=== PATIENT | female | born 2000 | race Caucasian/White ===

== ENCOUNTER 2024-10-16 14:05 | Outpatient (CLI) | payer MEDICAID, SELFPAY ==
[2024-10-16] VITALS (9 sets, daily range): BP systolic 111–136; BP diastolic 67–86; PULSE 93–113; RESP 20; TEMP 36.7; BMI 26.6
--- OUTSIDE RECORDS SUMMARY | 2024-10-16 14:19 | XMS RPT_ITS | CCD ---
Author Organization [facility] Care Team Providers Care Fountain Attendant Name Role Phone [employer] Unavailable Unavailable [facility] Unavailable Unavailable Matilda Voothy Primary Care Provider [phone] Unavailable Primary Care Provider Unavailabl e Unavailable Primary Care Provider Unavailabl e MATILDA VOOTHY Primary Care Unavailable WHITNEYTSYAKELIN Attending Unavailable PLOTTS, YAKELIN Referring Unavailable PLOTTS, YAKELIN Referring Unavailable HAURY, XIOMARA Attending Unavailable MADHURIVERA ORDAZ Attending Unavailable WISWELL, THANIA Attending Unavailable EID, EAN Attending Unavailable WISWELL, THANIA Referring Unavailable WISWELL, THANIA Referring Unavailable MADHURIVERA Attending Unavailable MADHURIVERA ORDAZ Referring Unavailable PLOTTS, YAKELIN Attending Unavailable EID, EAN Referring Unavailable HAURY, XIOMARA Attending Unavailable EID, EAN Referring Unavailable EID, EAN Referring Unavailable EID, EAN Referring Unavailable EID, EAN Attending Unavailable EID, EAN Referring Unavailable MADHURI, VERA Attending Unavailable Allergies Allergy Classification Reported Allergen(s) Allergy Type Date of Onset Reaction(s) Facility (20 sources) amoxicillin; Translations: [AMOXICILLIN] Drug Allergy 6 Hives, Rash, GI Upset [facility] Other [place] [facility] Medications Current Medications Medication Drug Class(es) Dates Sig (Normalized) Sig (Original) aspirin 81 mg delayed release oral tablet (17 sources) Platelet Aggregation Inhibitor, Nonsteroidal Anti-inflammatory Drug Start: 03-28-2024 End: 06-22-2024 take 1 tablet by mouth once daily aspirin, enteric coated (ECOTRIN LOW STRENGTH) 81 mg EC tablet Indications: Encounter for supervision of normal in multigravida (HCC) , with uncertain dates in first trimester (HCC) Take 1 tablet by mouth once daily. 90 tablet 3 06/22/2024 Active famotidine 40 mg oral tablet (4 sources) Histamine-2 Receptor Antagonist Start: 03-28-2024 End: 04-27-2024 take 1 tablet by mouth once daily famotidine (PEPCID) 40 mg tablet Take 1 tablet by mouth once daily. 30 tablet 3 03/28/2024 04/27/2024 Active metroNIDAZOLE 500 mg oral tablet (2 sources) Nitroimidazole Antimicrobial Start: 03-29-2024 End: 04-05-2024 take 1 tablet by mouth twice daily metroNIDAZOLE (FLAGYL) 500 mg tablet Take 1 tablet by mouth two times a day for 7 days. 14 tablet 03/29/2024 04/05/2024 Active Multiple Vitamin (multivitamin) tablet (3 sources) take 1 tablet by mouth once daily Multiple Vitamin (multivitamin) tablet Take 1 tablet by mouth daily. Active PNV no.95/ferrous fum/folic ac ( ORAL) (17 sources) take 1 tablet by mouth once daily before mealtime PNV no.95/ferrous fum/folic ac ( ORAL) Take 1 tablet by mouth once daily. W/ DHA & Folic acid Active pyridoxine hydrochloride 25 mg oral tablet (3 sources) take 1 tablet by mouth once daily pyridoxine (Vitamin B-6) 25 MG tablet Take 25 mg by mouth daily. Active Completed/Discontinued Medications Medication Drug Class(es) Dates Sig (Normalized) Sig (Original) bifidobacterium animalis [id number] unt / bifidobacterium longum [id number] unt / lactobacillus acidophilus [id number] unt oral capsule (2 sources) Start: 07-13-2018 End: 03-28-2024 take 1 capsule by mouth once daily L.acidoph-B.lactis- B.longum (FLORAJEN3) 460 mg (7.5-6- 1.5 bill. cell) cap Indications: BV (bacterial vaginosis) Take 1 capsule by mouth once daily. 30 capsule 2 07/13/2018 03/28/2024 Discontinued (Course of therapy completed) esomeprazole 20 mg delayed release oral capsule (2 sources) Proton Pump Inhibitor Start: 07-08-2018 End: 03-28-2024 take 1 capsule by mouth once daily before breakfast esomeprazole (NEXIUM) 20 mg capsule Indications: Epigastric pain , Pelvic pain in female Take 1 capsule by mouth daily before breakfast for 14 days. 14 capsule 07/08/2018 03/28/2024 Discontinued (Course of therapy completed) folic acid 1 mg oral tablet (8 sources) Start: 03-28-2024 End: 06-22-2024 take 1 tablet by mouth once daily folic acid 1 mg tablet Take 1 tablet by mouth once daily. 30 tablet 4 03/28/2024 [Ratio] 23.45 kg/m2 Yakelin Hoffman APRN.CNM Work Phone: [facility] 05-27-2024 09:25-0400 Body weight 60.78 kg Yakelin Hoffman APRN.CNM Work Phone: [facility] 05-27-2024 09:25-0400 Diastolic blood pressure 64 mm[Hg] Yakelin Hoffman DENTAL COORDINATOR.CNM Work Phone: [facility] 05-27-2024 09:25-0400 Systolic blood pressure 116 mm[Hg] Yakelin Hoffman APRN.CNM Work Phone: [facility] 04-29-2024 10:05-0500 Body mass index (BMI) [Ratio] 22.05 kg/m2 Vera Bautista MD Work Phone: [facility] 04-29-2024 10:05-0500 Body weight 57.15 kg Vera Bautista MD Work Phone: [facility] 04-29-2024 10:05-0500 Diastolic blood pressure 64 mm[Hg] Vera Bautista MD Work Phone: [facility] 04-29-2024 10:05-0500 Systolic blood pressure 130 mm[Hg] Vera Bautista MD Work Phone: [facility] 04-06-2024 14:35-0500 Body mass index (BMI) [Ratio] 21 kg/m2 Ean Eid APRN.CNM Work Phone: [facility] 04-06-2024 14:35-0500 Body weight 54.43 kg Ean Eid APRN.CNM Work Phone: [facility] 04-06-2024 14:35-0500 Diastolic blood pressure 62 mm[Hg] Ean Eid APRN.CNM Work Phone: [facility] 04-06-2024 14:35-0500 Systolic blood pressure 108 mm[Hg] Ean Eid APRN.CNM Work Phone: [facility] 03-28-2024 13:00-0500 Body height 161 cm Ean Eid APRN.CNM Work Phone: [facility] 03-28-2024 13:00-0500 Body mass index (BMI) [Ratio] 20.65 kg/m2 Ean Eid APRN.CNM Work Phone: [facility] 03-28-2024 13:00-0500 Body weight 53.52 kg Ean Eid APRN.CNM Work Phone: [facility] 03-28-2024 13:00-0500 Diastolic blood pressure 78 mm[Hg] Ean Eid APRN.CNM Work Phone: [facility] 03-28-2024 13:00-0500 Systolic blood pressure 122 mm[Hg] Ean Eid APRN.CNM Work Phone: [facility] 03-18-2024 22:51-0500 Diastolic blood pressure 56 mm[Hg] [facility] 03-18-2024 22:51-0500 Heart rate 80 /min [facility] 03-18-2024 22:51-0500 Respiratory rate 16 /min [facility] 03-18-2024 22:51-0500 SaO2% (BldA) [Mass fraction] 100 % [facility] 03-18-2024 22:51-0500 Systolic blood pressure 112 mm[Hg] [facility] 03-18-2024 20:36-0500 Body temperature 97.59 [degF] [facility] 06-03-2022 10:28-0400 Body height 162.6 cm Fatoumata Irvin DENTAL COORDINATOR - GLASS SILVERER Work Phone: [facility] 06-03-2022 10:28-0400 Body mass index (BMI) [Ratio] 21.46 kg/m2 Fatoumata Irvin DENTAL COORDINATOR - GLASS SILVERER Work Phone: [facility] [employer] 06-03-2022 10:28-0400 Body temperature 98.29 [degF] Fatoumata Irvin DENTAL COORDINATOR - GLASS SILVERER Work Phone: [employer] 06-03-2022 10:28-0400 Body weight 56.7 kg Fatoumata Irvin DENTAL COORDINATOR - GLASS SILVERER Work Phone: [employer] 06-03-2022 10:28-0400 Diastolic blood pressure 70 mm[Hg] Fatoumata Irvin DENTAL COORDINATOR - GLASS SILVERER Work Phone: [employer] 06-03-2022 10:28-0400 Heart rate 88 /min Fatoumata Irvin DENTAL COORDINATOR - GLASS SILVERER Work Phone: [employer] 06-03-2022 10:28-0400 Respiratory rate 18 /min Fatoumata Irvin DENTAL COORDINATOR - GLASS SILVERER Work Phone: [employer] 06-03-2022 10:28-0400 SaO2% (BldA) [Mass fraction] 100 % Fatoumata Irvin DENTAL COORDINATOR - GLASS SILVERER Work Phone: [employer] 06-03-2022 10:28-0400 Systolic blood pressure 133 mm[Hg] Fatoumata Irvin DENTAL COORDINATOR - GLASS SILVERER Work Phone: [employer] Encounters Encounter Date Encounter Type Care Provider Facility Start: 10-12-2024 End: 10-12-2024 ambulatory THANIA SAMANIEGO Facility:[facility] Start: 09-19-2024 End: 09-19-2024 Patient encounter procedure Thania Samaniego MD Work Phone: OB/Gynecology Comment on above: Supervision of high risk in third trimester (HCC) (Primary Dx); 33 weeks gestation of (HCC); Uterine size-date discrepancy, third trimester (HCC) Start: 09-19-2024 End: 09-19-2024 ambulatory THANIA SAMANIEGO Facility:[facility] Start: 09-06-2024 End: 09-06-2024 ambulatory Vera Bautista MD Work Phone: OB/Gynecology Comment on above: FMLA paperwork Start: 09-06-2024 End: 09-06-2024 E-mail encounter from caregiver Vera Bautista MD Work Phone: OB/Gynecology Start: 09-05-2024 End: 09-07-2024 ambulatory Vera Bautista MD Work Phone: OB/Gynecology Comment on above: Request for maternit y leave Start: 08-31-2024 End: 08-31-2024 Office outpatient visit 15 minutes Vera Bautista MD Work Phone: OB/Gynecology Comment on above: Supervision of high risk in third trimester (HCC) (Primary Dx); History of vacuum extraction assisted delivery; History of oligohydramnios; 30 weeks gestation of (HCC) Start: 08-31-2024 End: 08-31-2024 ambulatory VERA BAUTISTA Facility:[facility] Start: 08-22-2024 End: 08-22-2024 [facility] Facility:[facility] Start: 08-18-2024 End: 08-18-2024 Telephone encounter Xiomara Fisher APRN.CNP Work Phone: OB/Gynecology Comment on above: Results Start: 08-18-2024 End: 08-18-2024 Patient encounter procedure Xiomara Fisher APRN.CNP Work Phone: OB/Gynecology Comment on above: Supervision of high risk in third trimester (HCC) (Primary Dx); 28 weeks gestation of (HCC); History of vacuum extraction assisted delivery; History of oligohydramnios Start: 08-18-2024 End: 08-18-2024 [facility] Facility:[facility] Start: 07-20-2024 End: 07-20-2024 Patient encounter procedure Yakelin Hoffman APRN.CNM Work Phone: OB/Gynecology Comment on above: Screening for diabet es mellitus (Primary Dx); 24 weeks gestation of (HCC); Supervision of high risk in second trimester (HCC) Start: 07-20-2024 End: 07-20-2024 [facility] Facility:[facility] Start: 06-22-2024 End: 06-22-2024 Patient encounter procedure Xiomara Fisher APRN.CNP Work Phone: OB/Gynecology Comment on above: Supervision of high risk in second trimester (HCC) (Primary Dx); 20 weeks gestation of (HCC); History of vacuum extraction assisted delivery; Encounter for supervision of normal in multigravida (HCC); with uncertain dates in first trimester (HCC) Encounter for anatomic survey (HCC) (Primary Dx); 20 weeks gestation of (HCC) Start: 06-22-2024 End: 06-[facility] Start: 05-27-2024 End: 05-27-2024 ambulatory YAKELIN HOFFMAN Facility:[facility] Start: 05-27-2024 End: 05-27-2024 Patient encounter procedure Yakelin Hoffman DENTAL COORDINATOR.CNM Work Phone: OB/Gynecology Comment on above: Encounter for superv ision of other normal in second trimester (Primary Dx); History of vacuum extraction assisted delivery; 15 weeks gestation of ; Nausea and vomiting in ; headache in second trimester Start: 05-05-2024 End: 07-05-2024 Follow-up encounter Vera Bautista MD Work Phone: OB/Gynecology Start: 05-03-2024 End: 05-03-2024 Patient encounter procedure Whi Tech 1 Dog Pound Attendant [facility] [facility] Maternal Medicine Comment on above: Encounter for antena seferino screening for malformation using ultrasound (Primary Dx); 12 weeks gestation of Start: 05-03-2024 End: 05-03-2024 [facility] Start: 04-29-2024 End: 04-29-2024 ambulatory VERA BAUTISTA Facility:[facility] Start: 04-29-2024 End: 04-29-2024 Office outpatient visit 15 minutes Vera Bautista MD Work Phone: OB/Gynecology Comment on above: 11 weeks gestation o f (Primary Dx); Encounter for supervision of other normal in first trimester; History of vacuum extraction assisted delivery Start: 04-06-2024 End: 04-06-2024 [facility] Facility:[facility] Start: 04-06-2024 End: 04-06-2024 Patient encounter procedure Eanariel Eid APRN.CNM Work Phone: OB/Gynecology Comment on above: Supervision of other normal (Primary Dx); Bleeding in early ; 8 weeks gestation of Start: 03-30-2024 End: 04-01-2024 ambulatory Ean Eid APRN.CNM Work Phone: OB/Gynecology Comment on above: Return to work Start: 03-29-2024 End: 03-29-2024 ambulatory Ean Eid DENTAL COORDINATOR.CNM Work Phone: OB/Gynecology Comment on above: Return to work Start: 03-28-2024 End: 03-28-2024 ambulatory EAN EID Facility:[facility] Start: 03-28-2024 End: 03-28-2024 Patient encounter procedure Ean Eid APRN.CNM Work Phone: OB/Gynecology Comment on above: Encounter for superv ision of normal in multigravida (Primary Dx); with uncertain dates in first trimester; History of vacuum extraction assisted delivery; Supervision of other normal ; Nausea and vomiting in Start: 03-21-2024 End: 03-21-2024 ambulatory Kim Hylton RN [facility] Clinical Communication Start: 03-21-2024 End: 03-21-2024 [facility] Start: 03-18-2024 End: 03-18-2024 Emergency department patient visit [facility] Comment on above: Nausea and vomiting during (Primary Dx); Elevated blood pressure reading Start: 03-18-2024 End: 03-18-2024 Telephone encounter Yakelin Hoffman ELOISA.CNM Work Phone: OB/Gynecology Comment on above: Nausea Start: 06-03-2022 End: 06-03-2022 Office outpatient visit 15 minutes Fatoumata Corona NP Work Phone: [facility] Comment on above: Impacted cerumen of right ear (Primary Dx) Start: 12-21-2017 End: 12-22-2017 Emergency department patient visit [facility] Procedures Date Procedure Procedure Detail Performing Clinician Start: 06-22-2024 Us preg uterus after 1st trimest 1/ gestation Ean Eid APRN.CNM Work Phone: Start: 05-03-2024 Us preg uterus after 1st trimest 1/ gestation Eanariel Eid APRN.CNM Work Phone: Start: 03-28-2024 BACTERIAL VAGINOSIS NAAT Ean Eid APRN.CNM Work Phone: Start: 03-28-2024 Iadna trichomonas va ginalis amplified probe tech Eanariel Eid APRN.CNM Work Phone: Start: 03-28-2024 Antibody screen JERRY HOFFMAN Comment on above: Order Comment: Speci men Type: BLOOD SPECIMEN Ordering Facility: [facility] Address: [address] [place] [address] Performed By: #### T SPN #### [facility] CLIA [id number] [address] [place] [address] [place] Start: 03-28-2024 Iadna chlamydia trac homatis amplified probe tq Eanariel Eid APRN.CNM Work Phone: Start: 03-28-2024 Us uterus l imited 1/> fetuses Eanariel Eid APRN.CNM Work Phone: Start: 03-18-2024 Comprehensive metabo lic panel Amee Banks PA-C Work Phone: Plan of Treatment Date Care Activity Detail Author Start: 2073 RSV Immunization for Adults (1 - 1-dose 75+ series) RSV Immunization for Adults (1 - 1-dose 75+ series) [employer] Start: 2048 Zoster Vaccines (1 o f 2) Zoster Vaccines (1 of 2) [employer] Start: 03-28-2027 Screening for malign ant neoplasm of cervix Cervical Cancer Screening [facility] Start: 05-23-2025 DTaP/Tdap/Td Vaccine s (5 - Td or Tdap) DTaP/Tdap/Td Vaccines (5 - Td or Tdap) [facility] Start: 05-23-2025 DTaP/Tdap/Td Vaccine s (8 - Td or Tdap) DTaP/Tdap/Td Vaccines (8 - Td or Tdap) [facility] Start: 05-23-2025 Urine microalbumin profile DTaP,Tdap,Td Vaccine (8 - Td or Tdap) [facility] Start: 11-07-2024 Influenza vaccination Influenza Vacc ine (#1) [facility] Start: 10-12-2024 End: 10-12-2024 Patient encounter procedure Maternal Medicine Comment on above: Growth Growth/OB Start: 09-19-2024 End: 09-19-2025 OBSTETRIC ULTRASOUND WHI OBSTETRIC ULTRASOUND WHI Anc Imaging Routine 33 weeks gestation of ([facility]) Supervision of high risk in third trimester ([facility]) Uterine size-date discrepancy, third trimester ([facility]) Expected: 09/19/2024, Expires: 09/19/2025 [facility] Work Phone: Comment on above: Expected: 09/19/2024 , Expires: 09/19/2025 Start: 09-19-2024 End: 09-19-2024 Patient encounter procedure OB/Gynecology Comment on above: OB OB- FMLA paper work in chart prep binder Start: 08-31-2024 End: 08-31-2024 Patient encounter procedure 08/31/2024 10:40 AM EDT Routine Office Visit OB/Gynecology [address] [place] [id number] Vera Bautista MD [address] [place] [address] OB OB/Gynecology Comment on above: OB Start: 08-22-2024 End: 08-22-2024 ambulatory 08/22/2024 8:45 AM EDT Results Only Siena Winter [facility] [address] [place] [address] 3 hour GTT Sienaalicia Lynchwn [facility] Comment on above: 3 hour GTT Start: 08-20-2024 End: 11-19-2024 ANEMIA REFLEX PANEL ANEMIA REFLEX PANEL Lab Routine 24 weeks gestation of ([facility]) Supervision of high risk in second trimester ([facility]) Expected: 08/20/2024 (Approximate), Expires: 11/19/[address] [facility] Comment on above: Expected: 08/20/2024 (Approximate), Expires: 11/19/2024 Start: 08-20-2024 End: 07-20-2025 GESTATIONAL GLUCOSE SCREEN, 1-HOUR, 50 GRAM, NON-FASTING GESTATIONAL GLUCOSE SCREEN, 1-HOUR, 50 GRAM, NON-FASTING Lab Routine Screening for diabetes mellitus Expected: 08/20/2024 (Approximate), Expires: 07/20/2025 [facility] Work Phone: Comment on above: Expected: 08/20/2024 (Approximate), Expires: 07/20/2025 Start: 08-20-2024 End: 07-20-2025 SYPHILIS TREPONEMAL W/REFLEX SYPHILIS TREPONEMAL W/REFLEX Lab Routine 24 weeks gestation of ([facility]) Supervision of high risk in second trimester ([facility]) Expected: 08/20/2024 (Approximate), Expires: 07/20/[address] [facility] Comment on above: Expected: 08/20/2024 (Approximate), Expires: 07/20/2025 Start: 08-18-2024 End: 11-17-2024 GEST GLUC NEREIDA, 3-HR, 100 GM, FASTING GEST GLUC NEREIDA, 3-HR, 100 GM, FASTING Lab Routine Elevated glucose tolerance test Expected: 08/18/2024, Expires: 11/17/2024 [facility] Work Phone: Comment on above: Expected: 08/18/2024 , Expires: 11/17/2024 Start: 08-18-2024 End: 08-18-2024 Patient encounter procedure 08/18/2024 9:00 AM EDT Routine Office Visit OB/Gynecology [address] [place] [id number] Xiomara Fisher APRN.CERAMIC TILE SETTER [address] [place] [address] CASH/glucose OB/Gynecology Comment on above: CASH/glucose Start: 08-18-2024 End: 08-18-2024 ambulatory 08/18/2024 8:45 AM EDT Results Only Siena Winter [facility] [address] [place] [address] glucose Siena Lynchwn [facility] Comment on above: glucose Start: 07-20-2024 End: 07-20-2024 Patient encounter procedure 07/20/2024 9:15 AM EDT Routine Office Visit OB/Gynecology [address] [place] [address] Yakelin Hoffman APRN.CNM [address] [place] [address] OB Routine OB/Gynecology Comment on above: OB Routine Start: 06-22-2024 End: 06-22-2024 Patient encounter procedure Maternal Medicine Comment on above: ANATOMY ANATOMY/OB Start: 05-27-2024 End: 05-27-2024 Patient encounter procedure 05/27/2024 9:45 AM EDT Routine Office Visit OB/Gynecology [address] [place] [address] Yakelin Hoffman APRN.CNM [address] [place] [address] OB OB/Gynecology Comment on above: OB Start: 05-03-2024 End: 05-03-2024 Patient encounter procedure 05/03/2024 2:30 PM EST Routine Office Visit Maternal Medicine [address] [place] [address] Nuchal US Maternal Medicine Comment on above: Nuchal US Start: 04-29-2024 End: 07-29-2024 Chromosome 21 trisomy [Presence] in Blood or Tissue by Cytogenetics [facility] Work Phone: Comment on above: Expected: 04/29/2024 , Expires: 07/29/2024 Start: 04-29-2024 End: 04-29-2024 Patient encounter procedure 04/29/2024 10:00 AM EST Routine Office Visit OB/Gynecology [address] [place] [address] Vera Bautista MD [address] [place] [address] 1ST OB LMP 01/30/2024 OB/Gynecology Comment on above: 1ST OB LMP 4 Start: 03-28-2024 End: 06-27-2024 ANEMIA REFLEX PANEL [facility] Work Phone: Comment on above: Expected: 03/28/2024 , Expires: 06/27/2024 Start: 03-28-2024 End: 03-28-2025 OBSTETRIC ULTRASOUND WHI OBSTETRIC ULTRASOUND WHI Anc Imaging Routine Encounter for supervision of normal in multigravida with uncertain dates in first trimester Expected: 03/28/2024, Expires: 03/28/[address] [facility] Comment on above: Expected: 03/28/2024 , Expires: 03/28/2025 Start: 03-28-2024 End: 03-28-2024 Patient encounter procedure 03/28/2024 1:00 PM EST Initial Office Visit OB/Gynecology [address] [place] [address] Ean Eid APRN.[facility] [address] [place] [address] 1ST OB LMP 01/30/2024 OB/Gynecology Comment on above: 1ST OB LMP 4 Start: 11-08-2023 Covid-19 Vaccine ( season) Covid-19 Vaccine ( season) [facility] Start: 11-08-2023 COVID-19 Vaccine ( season) COVID-19 Vaccine ( season) [facility] Start: 11-08-2023 Influenza vaccination Influenza Vacc ine (#1) [facility] Start: 06-15-2020 COVID-19 Vaccine (3 - Booster for Moderna series) COVID-19 Vaccine (3 - Booster for Moderna series) [facility] Start: 06-02-2019 Screening for malign ant neoplasm of cervix [facility] Start: 2016 Anxiety Screening Anxiety Screening [facility] Start: 2016 Depression Screening Depression Scre ening [facility] Start: 2016 Hepatitis C screening Hepatitis C Sc reemario [facility] Start: 2013 HPV Vaccine (1 - 3-d ose series) HPV Vaccine (1 - 3-dose series) [facility] Start: 2013 HPV Vaccines (1 - 3-dose series) HPV Vaccines (1 - 3-dose series) [facility] Start: 2012 Peds To Adult Transition Annual Assessment Peds To Adult Transition Annual Assessment [facility] Start: 2010 Depression Screening Depression Scre endennise [facility] Start: 2010 Peds To Adult Transition Initial Discussion Peds To Adult Transition Initial Discussion [facility] Start: 2009 HPV Vaccines (1 - 2-dose series) HPV Vaccines (1 - 2-dose series) [facility] Start: 1998 HIV screening HIV Screening [facility] PAP TEST PAP TEST Lab Lucy thompson Encounter for supervision of normal in multigravida 03/28/2024 4:18 PM EST [facility] Immunizations Immunization Date Immunization Notes Care Provider Elyse jacobo 01-08-2024 influenza virus vacc ine, unspecified formulation Vera Bautista MD Work Phone: [facility] 12-17-2021 influenza virus vacc ine, unspecified formulation [facility] 01-10-2017 influenza, injectabl e, quadrivalent, preservative free Yakelin Hoffman DENTAL COORDINATOR.CNAnthony Work Phone: [facility] 01-10-2017 influenza virus vacc ine, unspecified formulation Yakelin Hoffman DENTAL COORDINATOR.CNM Work Phone: [facility] 05-24-2015 tetanus toxoid, redu chandan diphtheria toxoid, and acellular pertussis vaccine, adsorbed Yakelin Hoffman DENTAL COORDINATOR.CNM Work Phone: [facility] 09-29-2014 meningococcal polysaccharide (groups A, C, Y and W-135) diphtheria toxoid conjugate vaccine (MCV4P) Yakelin Hoffman DENTAL COORDINATOR.CNM Work Phone: [facility] Work Phone: 10-06-2011 hepatitis A vaccine, unspecified formulation Yakelin Plotts DENTAL COORDINATOR.CNM Work Phone: [facility] 10-06-2011 varicella virus vaccine Cour tney Plotts DENTAL COORDINATOR.CNM Work Phone: [facility] 08-09-2010 hepatitis A vaccine, unspecified formulation Yakelin Plotts DENTAL COORDINATOR.CNM Work Phone: [facility] 08-09-2010 Meningococcal, MCV4, unspecified conjugate formulation(groups A, C, Y and W-135) Yakelin Plotts DENTAL COORDINATOR.CNM Work Phone: [facility] 08-09-2010 tetanus toxoid, redu chandan diphtheria toxoid, and acellular pertussis vaccine, adsorbed Yakelin Plotts DENTAL COORDINATOR.CNM Work Phone: [facility] 02-07-2010 influenza virus vacc ine, unspecified formulation Yakelin Plotts DENTAL COORDINATOR.CNM Work Phone: [facility] 01-22-2006 influenza virus vacc ine, unspecified formulation Yakelin Plotts DENTAL COORDINATOR.CNM Work Phone: [facility] Work Phone: 01-23-2004 influenza virus vacc ine, unspecified formulation Yakelin Plotts DENTAL COORDINATOR.CNM Work Phone: [facility] 08-03-2003 diphtheria, tetanus toxoids and acellular pertussis vaccine Yakelin Plotts DENTAL COORDINATOR.CNM Work Phone: [facility] 08-03-2003 measles, mumps and rubella virus vaccine Yakelin Plotts DENTAL COORDINATOR.CNM Work Phone: [facility] 08-03-2003 poliovirus vaccine, inactivated Yakelin Plotts DENTAL COORDINATOR.CNM Work Phone: [facility] 02-10-2003 influenza virus vacc ine, unspecified formulation Yakelin Plotts DENTAL COORDINATOR.CNM Work Phone: [facility] 12-23-2002 influenza virus vacc ine, unspecified formulation Yakelin Plotts DENTAL COORDINATOR.CNM Work Phone: [facility] 09-20-1999 diphtheria, tetanus toxoids and acellular pertussis vaccine Yakelin Plotts DENTAL COORDINATOR.CNM Work Phone: [facility] 09-20-1999 haemophilus influenz ae type b vaccine, HbOC conjugate Yakelin Plotts DENTAL COORDINATOR.CNM Work Phone: [facility] 09-20-1999 measles, mumps and rubella virus vaccine Yakelin Plotts DENTAL COORDINATOR.CNM Work Phone: [facility] 09-20-1999 poliovirus vaccine, inactivated Yakelin Plotts DENTAL COORDINATOR.CNM Work Phone: [facility] 06-07-1999 varicella virus vaccine Cour tney Plotts DENTAL COORDINATOR.CNM Work Phone: [facility] 02-20-1999 diphtheria, tetanus toxoids and acellular pertussis vaccine Yakelin Plotts DENTAL COORDINATOR.CNM Work Phone: [facility] 02-20-1999 haemophilus influenz ae type b vaccine, HbOC conjugate Yakelin Plotts DENTAL COORDINATOR.CNM Work Phone: [facility] 02-20-1999 hepatitis B vaccine, pediatric or pediatric/adolescent dosage Yakelin Plotts DENTAL COORDINATOR.CNM Work Phone: [facility] 1998 diphtheria, tetanus toxoids and acellular pertussis vaccine Yakelin Plotts DENTAL COORDINATOR.CNM Work Phone: [facility] 1998 haemophilus influenz ae type b vaccine, HbOC conjugate Yakelin Plotts DENTAL COORDINATOR.CNM Work Phone: [facility] 1998 hepatitis B vaccine, pediatric or pediatric/adolescent dosage Yakelin Plotts DENTAL COORDINATOR.CNM Work Phone: [facility] 1998 poliovirus vaccine, inactivated Yakelin Plotts DENTAL COORDINATOR.CNM Work Phone: [facility] 1998 diphtheria, tetanus toxoids and acellular pertussis vaccine Yakelin Plotts DENTAL COORDINATOR.CNM Work Phone: [facility] Work Phone: 1998 haemophilus influenz ae type b vaccine, HbOC conjugate Yakelin Hoffman DENTAL COORDINATOR.CNM Work Phone: [facility] 1998 hepatitis B vaccine, pediatric or pediatric/adolescent dosage Yakelin Hoffman DENTAL COORDINATOR.CNM Work Phone: [facility] 1998 poliovirus vaccine, [facility] D[facility] COORDINATOR.CNM Work Phone: [facility] Payers Date Payer Category Payer Commercial Managed [facility] - HMO MMO [facility] [id number] 2024 Medicaid [id number] 2024 Private Health Insurance MMO [facility] [id number] 2024 Unknown MMO MMO [employer] [id number] 2024-Present [phone] [address] [place] [address] Indemnity [id number] 2024 Medicaid [id number] 2024 Unknown [id number] Social History Date Type Detail Facility Start: 07-04-2013 End: 03-24-2024 Tobacco smoking status NHIS Never smoked tobacco [facility] Start: 06-03-2022 End: 03-18-2024 Alcohol intake Lifetime non-drinker (finding) [facility] Start: 1998 Sex Assigned At Not on file S [facility] Start: 05-24-2022 End: 06-03-2022 Exposure to SARS-CoV-2 (event) Not sure [facility] Start: 07-04-2013 End: 03-24-2024 Tobacco use and exposure Smokeless tobacco non-user [facility] Start: 07-08-2018 End: 09-19-2024 Alcoholic beverage intake Current non-drinker of alcohol (finding) [facility] Start: 07-08-2018 End: 05-03-2024 History of Social function [facility] Start: 07-08-2018 End: 05-03-2024 Tobacco use panel [facility] PHQ2 Score 0 [facility] How often do you hav e 6 or more drinks on 1 occasion? Less than monthly [facility] Start: 10-07-2021 Sex Female (finding) [facility] Start: 02-13-[address] [facility] Start: 03-24-2024 Sexual orientation Heterosexual (adrian torres) [facility] Goals Date Patient Goal Desired Activity /State Personal health goal Functional Status Date Assessment Result Facility 09-29-2014 Are you deaf, or do you have serious difficulty hearing No 09/29/2014 2:53 PM Shania Resendiz RN No [facility] 09-29-2014 Are you blind, or do you have serious difficulty seeing, even when wearing glasses No 09/29/2014 2:53 PM Shania Resendiz RN No [facility] 09-29-2014 Do you have serious difficulty walking or climbing stairs No 09/29/2014 2:53 PM Shania Resendiz RN No [facility] 09-29-2014 Do you have difficul ty dressing or bathing No 09/29/2014 2:53 PM EDT Shania Dubon RN No [facility] 09-29-2014 Because of a physica l, mental, or emotional condition, do you have difficulty doing errands alone such as visiting a physician's office or shopping No 09/29/2014 2:53 PM EDT Shania Dubon RN No [facility] Mental Status Date Assessment Result Facility 09-29-2014 Because of a physica l, mental, or emotional condition, do you have serious difficulty concentrating, remembering, or making decisions No 09/29/2014 2:53 PM EDT Shania Dubon RN No [facility] Clinical Notes 06-03-2022 to 09-19-2024 Quick Notes - Thania Samaniego MD - 09/19/2024 10:48 AM EDTPrenatal Quick Notes - Thania Samaniego MD - 09/19/2024 10:48 AM EDTPatient InstructionsPatient InstructionsPatient Instructions Note Date & Type Note Facility 09-19-2024 Progress note Formatting of t his note might be different from the original. SW- Pt doing well. No ctx, vb, lof. Good FM. Low back pain PE: Gen- NAD, well appearing Abd- Soft, gravid, NT, S>D See flowsheet A/p 33 wk gestation - S>D: Check growth US - Discussed expectations - RTO 2 wks Thania Samaniego DO [facility] 09-19-2024 Miscellaneous Notes SW- Pt doing well. No ctx, vb, lof. Good FM. Low back pain PE: Gen- NAD, well appearing Abd- Soft, gravid, NT, S>D See flowsheet A/p 33 wk gestation - S>D: Check growth US - Discussed expectations - RTO 2 wks Thania Samaniego DO documented in this encounter [facility] 09-19-2024 Instructions Meche Rucker MA - 09/19/2024 10:38 AM EDT SEQUENTIAL SCREENINGS The [facility] offers sequential screenings for women who are interested in screenings for chromosomal abnormalities and certain defects during a . The sequential screen combines ultrasound and blood tests to determine the risk of chromosomal abnormalities, including Down's Syndrome (Trisomy 21) and Trisomy 18, as well as open neural tube defects including spina bifida. Ultrasound examination is performed between 11 weeks and 13 weeks gestational age. Blood tests are drawn after the ultrasound and again later in the between 15 and 21 weeks gestational age. Please let your physician know if you are interested in this testing. It will require an appointment with our systems protection technician. This is not an ultrasound performed by a physician in our office during a routine visit. SIGNS AND SYMPTOMS OF LABOR 1. Contractions every 10 minutes or more often 2. Clear, pink, or brownish fluid (water) leaking from vagina 3. Feeling that baby is pushing down, pressure 4. Low, dull backache 5. Cramps that feel like a period 6. Cramps with or without diarrhea If you notice any of the above symptoms, contact our office at [phone] and ask to speak with a nurse. After hours, you can call doctors registry at [phone] OR call [facility] at [phone] and ask to have the doctor national facilities manager paged. If you consider this an emergency, dial 9-1-1 or go to your nearest emergency department. NEED HELP? Are you dealing with a violent or abusive relationship? Are you a victim of rape or sexual assult? Call [facility] ([place]) 24 hour Crisis Hotline: 766.642.8231 or 953-508-5490. MANUAL Your Guide to a Healthy manual is now on-line. [email or web address] Cecily to download your free copy documented in this encounter [facility] 09-07-2024 Telephone encounter Note FMLA completed and faxed 09/06/2024. Copy of FMLA for patient is in chart prep binder. [facility] 09-07-2024 Miscellaneous Notes FMLA completed and faxed 09/06/2024. Copy of FMLA for patient is in chart prep binder. Form to Kayley to complete documented in this encounter [facility] 09-06-2024 Telephone encounter Note FMLA completed and sent for scanning. Patient will garbage pick up man copy at next ob appointment. Copy will be in chart prep binder. [facility] 09-06-2024 Miscellaneous Notes FMLA completed and sent for scanning. Patient will garbage pick up man copy at next ob appointment. Copy will be in chart prep binder. documented in this encounter [facility] 09-06-2024 Telephone encounter Note Form to Kayley to complete [facility] 08-31-2024 Progress note Formatting of t his note might be different from the original. S: Rip Ames is a 24 year old female who presents at 11/05/2024, by Ultrasound for a routine visit. Denies headache, visual changes, chest pain, shortness of breath, vaginal bleeding, leakage of fluid, or dysuria. Feeling well, no complaints. Good movement, No contractions O: See flow sheet Gen: No apparent distress Abd: Gravid, nontender Passed 3 hr ASSESSMENT/PLAN: 1. Supervision of high risk in third trimester (HCC) - ICD9: V23.9, ICD10: O09.93 (primary diagnosis) RTO 2 weeks 2. History of vacuum extraction assisted delivery - ICD9: V13.29, ICD10: Z87.59 3. History of oligohydramnios - ICD9: V13.29, ICD10: Z87.59 4. 30 weeks gestation of (HCC) - ICD9: V22.2, ICD10: Z3A.30 Vera Bautista MD [facility] 08-31-2024 Miscellaneous Notes S: Rip Ames is a 24 year old female who presents at 11/05/2024, by Ultrasound for a routine visit. Denies headache, visual changes, chest pain, shortness of breath, vaginal bleeding, leakage of fluid, or dysuria. Feeling well, no complaints. Good movement, No contractions O: See flow sheet Gen: No apparent distress Abd: Gravid, nontender Passed 3 hr ASSESSMENT/PLAN: 1. Supervision of high risk in third trimester (HCC) - ICD9: V23.9, ICD10: O09.93 (primary diagnosis) RTO 2 weeks 2. History of vacuum extraction assisted delivery - ICD9: V13.29, ICD10: Z87.59 3. History of oligohydramnios - ICD9: V13.29, ICD10: Z87.59 4. 30 weeks gestation of (HCC) - ICD9: V22.2, ICD10: Z3A.30 Vera Bautista MD documented in this encounter [facility] 08-31-2024 Instructions Masha Sneed MA - 08/31/2024 10:21 AM EDT SEQUENTIAL SCREENINGS The [facility] offers sequential screenings for women who are interested in screenings for chromosomal abnormalities and certain defects during a . The sequential screen combines ultrasound and blood tests to determine the risk of chromosomal abnormalities, including Down's Syndrome (Trisomy 21) and Trisomy 18, as well as open neural tube defects including spina bifida. Ultrasound examination is performed between 11 weeks and 13 weeks gestational age. Blood tests are drawn after the ultrasound and again later in the between 15 and 21 weeks gestational age. Please let your physician know if you are interested in this testing. It will require an appointment with our systems protection technician. This is not an ultrasound performed by a physician in our office during a routine visit. SIGNS AND SYMPTOMS OF LABOR 1. Contractions every 10 minutes or more often 2. Clear, pink, or brownish fluid (water) leaking from vagina 3. Feeling that baby is pushing down, pressure 4. Low, dull backache 5. Cramps that feel like a period 6. Cramps with or without diarrhea If you notice any of the above symptoms, contact our office at [phone] and ask to speak with a nurse. After hours, you can call doctors registry at [phone] OR call [facility] at [phone] and ask to have the doctor national facilities manager paged. If you consider this an emergency, dial 9-1-2 or go to your nearest emergency department. NEED HELP? Are you dealing with a violent or abusive relationship? Are you a victim of rape or sexual assult? Call [facility] ([place]) 24 hour Crisis Hotline: 545.573.8786 or 263-253-4206. MANUAL Your Guide to a Healthy manual is now on-line. Visit [email or web address] Cceily to download your free copy documented in this encounter [facility] 08-18-2024 Telephone encounter Note Linked to appointment. Vera Gramajo RN [facility] 08-18-2024 Miscellaneous Notes Linked to appointment. Vera Gramajo RN Ordered Xiomara Fisher APRN.CNP 28w5d Saw EH today. She saw 1 hour glucose result was elevated on mychart. Discussed 3 hour GTT and scheduled lab appt. Can you file order to attach to that appt since CP is out of office the rest of the week? Chelly Magaña RN documented in this encounter [facility] 08-18-2024 Telephone encounter Note Ordered Xiomara Fisher APRN.CNP [facility] 08-18-2024 Telephone encounter Note 28w5d Saw EH today. She saw 1 hour glucose result was elevated on mychart. Discussed 3 hour GTT and scheduled lab appt. Can you file order to attach to that appt since CP is out of office the rest of the week? Chelly Magaña RN [facility] 08-18-2024 Progress note Formatting of t his note might be different from the original. EH - S: Rip is a 24 year old female who presents at 28w5d for a routine visit. Feeling movement. Denies headache, visual changes, chest pain, shortness of breath, vaginal bleeding, leakage of fluid, or dysuria. Feeling well, no complaints. O: See flow sheet Gen: No apparent distress Abd: Gravid, nontender, S=D, 29 lb TWG ASSESSMENT/PLAN: 1. Supervision of high risk in third trimester (HCC) - ICD9: V23.9, ICD10: O09.93 (primary diagnosis) - Continue PNV and LDA 2. 28 weeks gestation of (HCC) - ICD9: V22.2, ICD10: Z3A.28 - 1 hour GCT, CBC, and RPR today - Rh positive - Declines TDAP - LARC form reviewed and signed. Declines. - Depression screen negative - Opioid screen negative - plan form discussed and given to Rip - Reviewed how to pre register through [facility] 3. History of vacuum extraction assisted delivery - ICD9: V13.29, ICD10: Z87.59 PTL precautions and kick counts reviewed. RTO in 2 weeks or sooner as needed. Xiomara Fisher APRN.CNP [facility] 08-18-2024 Miscellaneous Notes EH - S: Rip is a 24 year old female who presents at 28w5d for a routine visit. Feeling movement. Denies headache, visual changes, chest pain, shortness of breath, vaginal bleeding, leakage of fluid, or dysuria. Feeling well, no complaints. O: See flow sheet Gen: No apparent distress Abd: Gravid, nontender, S=D, 29 lb TWG ASSESSMENT/PLAN: 1. Supervision of high risk in third trimester ([facility]) - ICD9: V23.9, ICD10: O09.93 (primary diagnosis) - Continue PNV and LDA 2. 28 weeks gestation of ([facility]) - ICD9: V22.2, ICD10: Z3A.28 - 1 hour GCT, CBC, and RPR today - Rh positive - Declines TDAP - LARC form reviewed and signed. Declines. - Depression screen negative - Opioid screen negative - plan form discussed and given to Rip - Reviewed how to pre register through [facility] 3. History of vacuum extraction assisted delivery - ICD9: V13.29, ICD10: Z87.59 PTL precautions and kick counts reviewed. RTO in 2 weeks or sooner as needed. Xiomara Fisher APRN.CNP documented in this encounter [facility] 08-18-2024 Instructions Xiomara Fisher APRN.CNP - 08/18/2024 9:02 AM EDT Please call [phone] to pre-register for your and labor and delivery stay at [facility]. They will want to know your due date, insurance and contact information. This is important to do before you go into labor to help with the efficiency of the admission process when you arrive. Thank you so much! SEQUENTIAL SCREENINGS The [facility] offers sequential screenings for women who are interested in screenings for chromosomal abnormalities and certain defects during a . The sequential screen combines ultrasound and blood tests to determine the risk of chromosomal abnormalities, including Down's Syndrome (Trisomy 21) and Trisomy 18, as well as open neural tube defects including spina bifida. Ultrasound examination is performed between 11 weeks and 13 weeks gestational age. Blood tests are drawn after the ultrasound and again later in the between 15 and 21 weeks gestational age. Please let your physician know if you are interested in this testing. It will require an appointment with our systems protection technician. This is not an ultrasound performed by a physician in our office during a routine visit. SIGNS AND SYMPTOMS OF LABOR 1. Contractions every 10 minutes or more often 2. Clear, pink, or brownish fluid (water) leaking from vagina 3. Feeling that baby is pushing down, pressure 4. Low, dull backache 5. Cramps that feel like a period 6. Cramps with or without diarrhea If you notice any of the above symptoms, contact our office at [phone] and ask to speak with a nurse. After hours, you can call doctors registry at [phone] OR call [facility] at [phone] and ask to have the doctor national facilities manager paged. If you consider this an emergency, dial 9-1-9 or go to your nearest emergency department. NEED HELP? Are you dealing with a violent or abusive relationship? Are you a victim of rape or sexual assult? Call [facility] ([place]) 24 hour Crisis Hotline: 271.595.1098 or 751-516-7611. MANUAL Your Guide to a Healthy manual is now on-line. Visit [email or web address] Cecily to download your free copy documented in this encounter [facility] 07-20-2024 Progress note Formatting of t his note might be different from the original. S: Rip Ames is a 24 year old female who presents at 24 weeks gestation for a routine visit. Positive movements. Denies any headaches. Stated they have resolved. Denies visual changes, chest pain, shortness of breath, vaginal bleeding, leakage of fluid, or dysuria. Feeling well, no complaints. O: See flow sheet Gen: No apparent distress Abd: Gravid, non tender ASSESSMENT/PLAN: 1. Screening for diabetes mellitus 2. 24 weeks gestation of 3. Supervision of high risk in second trimester - Continue ASA/ vitamin - RTO 2 weeks for CASH with GCT Yakelin Hoffman APRN.CNM [facility] 07-20-2024 Miscellaneous Notes S: Rip Ames is a 24 year old female who presents at 24 weeks gestation for a routine visit. Positive movements. Denies any headaches. Stated they have resolved. Denies visual changes, chest pain, shortness of breath, vaginal bleeding, leakage of fluid, or dysuria. Feeling well, no complaints. O: See flow sheet Gen: No apparent distress Abd: Gravid, non tender ASSESSMENT/PLAN: 1. Screening for diabetes mellitus 2. 24 weeks gestation of 3. Supervision of high risk in second trimester - Continue ASA/ vitamin - RTO 2 weeks for CASH with GCT Yakelin Hoffman APRN.CNM documented in this encounter [facility] 07-20-2024 Instructions Meche Rucker MA - 07/20/2024 8:59 AM EDT SEQUENTIAL SCREENINGS The [facility] offers sequential screenings for women who are interested in screenings for chromosomal abnormalities and certain defects during a . The sequential screen combines ultrasound and blood tests to determine the risk of chromosomal abnormalities, including Down's Syndrome (Trisomy 21) and Trisomy 18, as well as open neural tube defects including spina bifida. Ultrasound examination is performed between 11 weeks and 13 weeks gestational age. Blood tests are drawn after the ultrasound and again later in the between 15 and 21 weeks gestational age. Please let your physician know if you are interested in this testing. It will require an appointment with our systems protection technician. This is not an ultrasound performed by a physician in our office during a routine visit. SIGNS AND SYMPTOMS OF LABOR 1. Contractions every 10 minutes or more often 2. Clear, pink, or brownish fluid (water) leaking from vagina 3. Feeling that baby is pushing down, pressure 4. Low, dull backache 5. Cramps that feel like a period 6. Cramps with or without diarrhea If you notice any of the above symptoms, contact our office at [phone] and ask to speak with a nurse. After hours, you can call doctors registry at [phone] OR call [facility] at [phone] and ask to have the doctor national facilities manager paged. If you consider this an emergency, dial [phone] or go to your nearest emergency department. NEED HELP? Are you dealing with a violent or abusive relationship? Are you a victim of rape or sexual assult? Call [facility] [place] ([facility] 24 hour Crisis Hotline: 246.496.3616 or 362-674-9816. MANUAL Your Guide to a Healthy manual is now on-line. Visit [email or web address] to download your free copy documented in this encounter [facility] 06-22-2024 Note HNO ID: [id number] Author: XIOMARA FISHER APRN.EVIN Service: ? Author Type: Nurse Practitioner Type: Progress Notes Filed: 06/22/2024 09:02 Note Text: EH - S: Rip is a 24 year old female who presents at 20w4d for a routine visit. Feeling movement. Denies headache, visual changes, chest pain, shortness of breath, vaginal bleeding, leakage of fluid, or dysuria. Feeling well, no complaints. Headaches improved. O: See flow sheet Gen: No apparent distress Abd: Gravid, nontender, 23 lb TWG ASSESSMENT/PLAN: 1. Supervision of high risk in second trimester (HCC) - ICD9: V23.9, ICD10: O09.92 (primary diagnosis) - Continue PNV and LDA - Reviewed weight and answered questions 2. 20 weeks gestation of ([facility]) - ICD9: V22.2, ICD10: Z3A.20 - Anatomy ultrasound today, report pending 3. History of vacuum extraction assisted delivery - ICD9: V13.29, ICD10: Z87.59 PTL precautions reviewed. RTO in 4 weeks or sooner as needed. Xiomara Fisher APRN.EVIN [facility] 06-22-2024 History of Presen t illness Narrative EH - S: Rip is a 24 year old female who presents at 20w4d for a routine visit. Feeling movement. Denies headache, visual changes, chest pain, shortness of breath, vaginal bleeding, leakage of fluid, or dysuria. Feeling well, no complaints. Headaches improved. O: See flow sheet Gen: No apparent distress Abd: Gravid, nontender, 23 lb TWG ASSESSMENT/PLAN: 1. Supervision of high risk in second trimester ([facility]) - ICD9: V23.9, ICD10: O09.92 (primary diagnosis) - Continue PNV and LDA - Reviewed weight and answered questions 2. 20 weeks gestation of ([facility]) - ICD9: V22.2, ICD10: Z3A.20 - Anatomy ultrasound today, report pending 3. History of vacuum extraction assisted delivery - ICD9: V13.29, ICD10: Z87.59 PTL precautions reviewed. RTO in 4 weeks or sooner as needed. Xiomara Fisher APRN.CERAMIC TILE SETTER documented in this encounter [facility] 06-22-2024 Instructions Kayley Cross MA - 06/22/2024 8:19 AM EDT SEQUENTIAL SCREENINGS The [facility] offers sequential screenings for women who are interested in screenings for chromosomal abnormalities and certain defects during a . The sequential screen combines ultrasound and blood tests to determine the risk of chromosomal abnormalities, including Down's Syndrome (Trisomy 21) and Trisomy 18, as well as open neural tube defects including spina bifida. Ultrasound examination is performed between 11 weeks and 13 weeks gestational age. Blood tests are drawn after the ultrasound and again later in the between 15 and 21 weeks gestational age. Please let your physician know if you are interested in this testing. It will require an appointment with our systems protection technician. This is not an ultrasound performed by a physician in our office during a routine visit. SIGNS AND SYMPTOMS OF LABOR 1. Contractions every 10 minutes or more often 2. Clear, pink, or brownish fluid (water) leaking from vagina 3. Feeling that baby is pushing down, pressure 4. Low, dull backache 5. Cramps that feel like a period 6. Cramps with or without diarrhea If you notice any of the above symptoms, contact our office at [phone] and ask to speak with a nurse. After hours, you can call doctors registry at [phone] OR call [facility] at [phone] and ask to have the doctor national facilities manager paged. If you consider this an emergency, dial 9-1-9 or go to your nearest emergency department. NEED HELP? Are you dealing with a violent or abusive relationship? Are you a victim of rape or sexual assult? Call [facility] ([place]) 24 hour Crisis Hotline: 867.522.8186 or 688-251-1931. MANUAL Your Guide to a Healthy manual is now on-line. Visit [email or web address] to download your free copy documented in this encounter [facility] 05-27-2024 Progress note Formatting of t his note might be different from the original. S: Rip Ames is a 23 year old female who presents at 16 weeks gestation for a routine visit. FELICIA updated at previous ultrasound but not changed in chart. ASSIGNED FELICIA is 11/05/2024. No movements to date. N/V resolved. C/O headaches. Stated not no visual changes. Denies chest pain, shortness of breath, vaginal bleeding, leakage of fluid, or dysuria. O: See flow sheet Gen: No apparent distress Abd: Gravid, nontender ASSESSMENT/PLAN: 1. Encounter for supervision of other normal in second trimester 2. History of vacuum extraction assisted delivery 3. 16 weeks gestation of 5. Headache in - Tylenol Extra Strength 1000 mg PO PRN headache - Zyrtec 10 mg PO Daily - FELICIA updated in chart - RTO 3-4 weeks for anatomy Yakelin Hoffman APRN.CNM [facility] 05-27-2024 Miscellaneous Notes S: Rip Ames is a 23 year old female who presents at 16 weeks gestation for a routine visit. FELICIA updated at previous ultrasound but not changed in chart. ASSIGNED FELICIA is 11/05/2024. No movements to date. N/V resolved. C/O headaches. Stated not no visual changes. Denies chest pain, shortness of breath, vaginal bleeding, leakage of fluid, or dysuria. O: See flow sheet Gen: No apparent distress Abd: Gravid, nontender ASSESSMENT/PLAN: 1. Encounter for supervision of other normal in second trimester 2. History of vacuum extraction assisted delivery 3. 16 weeks gestation of 5. Headache in - Tylenol Extra Strength 1000 mg PO PRN headache - Zyrtec 10 mg PO Daily - FELICIA updated in chart - RTO 3-4 weeks for anatomy Yakelin Hoffman APRN.CNM documented in this encounter [facility] 05-27-2024 Instructions Mario Bernal MA - 05/27/2024 9:21 AM EDT SEQUENTIAL SCREENINGS The [facility] offers sequential screenings for women who are interested in screenings for chromosomal abnormalities and certain defects during a . The sequential screen combines ultrasound and blood tests to determine the risk of chromosomal abnormalities, including Down's Syndrome (Trisomy 21) and Trisomy 18, as well as open neural tube defects including spina bifida. Ultrasound examination is performed between 11 weeks and 13 weeks gestational age. Blood tests are drawn after the ultrasound and again later in the between 15 and 21 weeks gestational age. Please let your physician know if you are interested in this testing. It will require an appointment with our systems protection technician. This is not an ultrasound performed by a physician in our office during a routine visit. SIGNS AND SYMPTOMS OF LABOR 1. Contractions every 10 minutes or more often 2. Clear, pink, or brownish fluid (water) leaking from vagina 3. Feeling that baby is pushing down, pressure 4. Low, dull backache 5. Cramps that feel like a period 6. Cramps with or without diarrhea If you notice any of the above symptoms, contact our office at [phone] and ask to speak with a nurse. After hours, you can call doctors registry at [phone] OR call [facility] at [phone] and ask to have the doctor national facilities manager paged. If you consider this an emergency, dial 3-1-3 or go to your nearest emergency department. NEED HELP? Are you dealing with a violent or abusive relationship? Are you a victim of rape or sexual assult? Call [facility] ([place]) 24 hour Crisis Hotline: 182.297.3900 or 116-144-0322. MANUAL Your Guide to a Healthy manual is now on-line. Visit [email or web address] [email or web address] to download your free copy documented in this encounter [facility] 04-29-2024 Progress note Formatting of t his note might be different from the original. S: Rip Ames is a 23 year old female who presents at 11/12/2024, by Ultrasound for a routine visit. Denies headache, visual changes, chest pain, shortness of breath, vaginal bleeding, leakage of fluid, or dysuria. Feeling well, no complaints. O: See flow sheet Gen: No apparent distress Abd: Gravid, nontender Nausea improved. Desires NT and NIPT. Both ordered No longer having bleeding ASSESSMENT/PLAN: 1. 11 weeks gestation of - ICD9: V22.2, ICD10: Z3A.11 (primary diagnosis) - [id number] PLUS 2. Encounter for supervision of other normal in first trimester - ICD9: V22.1, ICD10: Z34.81 - [id number] PLUS 3. History of vacuum extraction assisted delivery - ICD9: V13.29, ICD10: Z87.59 Vera Bautista MD [facility] 04-29-2024 Miscellaneous Notes S: Rip Ames is a 23 year old female who presents at 11/12/2024, by Ultrasound for a routine visit. Denies headache, visual changes, chest pain, shortness of breath, vaginal bleeding, leakage of fluid, or dysuria. Feeling well, no complaints. O: See flow sheet Gen: No apparent distress Abd: Gravid, nontender Nausea improved. Desires NT and NIPT. Both ordered No longer having bleeding ASSESSMENT/PLAN: 1. 11 weeks gestation of - ICD9: V22.2, ICD10: Z3A.11 (primary diagnosis) - [id number] PLUS 2. Encounter for supervision of other normal in first trimester - ICD9: V22.1, ICD10: Z34.81 - [id number] PLUS 3. History of vacuum extraction assisted delivery - ICD9: V13.29, ICD10: Z87.59 Vera Bautista MD documented in this encounter [facility] 04-29-2024 Instructions Mary Whitman MA - 04/29/2024 10:05 AM EST SEQUENTIAL SCREENINGS The [facility] offers sequential screenings for women who are interested in screenings for chromosomal abnormalities and certain defects during a . The sequential screen combines ultrasound and blood tests to determine the risk of chromosomal abnormalities, including Down's Syndrome (Trisomy 21) and Trisomy 18, as well as open neural tube defects including spina bifida. Ultrasound examination is performed between 11 weeks and 13 weeks gestational age. Blood tests are drawn after the ultrasound and again later in the between 15 and 21 weeks gestational age. Please let your physician know if you are interested in this testing. It will require an appointment with our systems protection technician. This is not an ultrasound performed by a physician in our office during a routine visit. SIGNS AND SYMPTOMS OF LABOR 1. Contractions every 10 minutes or more often 2. Clear, pink, or brownish fluid (water) leaking from vagina 3. Feeling that baby is pushing down, pressure 4. Low, dull backache 5. Cramps that feel like a period 6. Cramps with or without diarrhea If you notice any of the above symptoms, contact our office at [phone] and ask to speak with a nurse. After hours, you can call doctors registry at [phone] OR call [facility] at [phone] and ask to have the doctor national facilities manager paged. If you consider this an emergency, dial 3--3 or go to your nearest emergency department. NEED HELP? Are you dealing with a violent or abusive relationship? Are you a victim of rape or sexual assult? Call [facility] ([place]) 24 hour Crisis Hotline: 340.912.2641 or 184-309-3496. MANUAL Your Guide to a Healthy manual is now on-line. Visit [email or web address] to download your free copy documented in this encounter [facility] 04-06-2024 Progress note Formatting of t his note might be different from the original. CHANDA-S: Rip Ames is a 23 year old female who presents at 8w4d with FELICIA:11/12/2024, by Ultrasound for a problem visit. Denies headache, visual changes, chest pain, shortness of breath, eakage of fluid, or dysuria.Had episode of spotting 4 days ago and concerned. Only when wiping on toilet paper and no flow. Denies any pain. No recent intercourse O: See flow sheet Gen: No apparent distress Abd: nontender Limited bedside ultrasound with positive movement and cardiac activity ASSESSMENT/PLAN: 1. Supervision of other normal - Reassurance offered 2. Bleeding in early 3. 8 weeks gestation of PTL precautions reviewed and when to call RTO as scheduled Ean Eid APRN.CNM [facility] 04-06-2024 Miscellaneous Notes JEFFS: Rip Ames is a 23 year old female who presents at 8w4d with FELICIA:11/12/2024, by Ultrasound for a problem visit. Denies headache, visual changes, chest pain, shortness of breath, eakage of fluid, or dysuria.Had episode of spotting 4 days ago and concerned. Only when wiping on toilet paper and no flow. Denies any pain. No recent intercourse O: See flow sheet Gen: No apparent distress Abd: nontender Limited bedside ultrasound with positive movement and cardiac activity ASSESSMENT/PLAN: 1. Supervision of other normal - Reassurance offered 2. Bleeding in early 3. 8 weeks gestation of PTL precautions reviewed and when to call RTO as scheduled Ean Eid APRN.CNM documented in this encounter [facility] 04-06-2024 Instructions Mary Whitman MA - 04/06/2024 2:39 PM EST SEQUENTIAL SCREENINGS The [facility] offers sequential screenings for women who are interested in screenings for chromosomal abnormalities and certain defects during a . The sequential screen combines ultrasound and blood tests to determine the risk of chromosomal abnormalities, including Down's Syndrome (Trisomy 21) and Trisomy 18, as well as open neural tube defects including spina bifida. Ultrasound examination is performed between 11 weeks and 13 weeks gestational age. Blood tests are drawn after the ultrasound and again later in the between 15 and 21 weeks gestational age. Please let your physician know if you are interested in this testing. It will require an appointment with our systems protection technician. This is not an ultrasound performed by a physician in our office during a routine visit. SIGNS AND SYMPTOMS OF LABOR 1. Contractions every 10 minutes or more often 2. Clear, pink, or brownish fluid (water) leaking from vagina 3. Feeling that baby is pushing down, pressure 4. Low, dull backache 5. Cramps that feel like a period 6. Cramps with or without diarrhea If you notice any of the above symptoms, contact our office at [phone] and ask to speak with a nurse. After hours, you can call doctors registry at [phone] OR call [facility] at [phone] and ask to have the doctor national facilities manager paged. If you consider this an emergency, dial 9-1-1 or go to your nearest emergency department. NEED HELP? Are you dealing with a violent or abusive relationship? Are you a victim of rape or sexual assult? Call [facility] ([place]) 24 hour Crisis Hotline: 671.115.8204 or 965-886-6309. MANUAL Your Guide to a Healthy manual is now on-line. Visit [email or web address] to download your free copy documented in this encounter [facility] 04-01-2024 Telephone encounter Note Form completed and faxed back to number provided. Patient notified via [employer]. Mario Bernal MA [facility] 04-01-2024 Miscellaneous Notes Form completed and faxed back to number provided. Patient notified via [employer]. Mario Bernal MA Received. Completed and on providers desk for signature. Mario Bernal MA Paperwork printed and given to Mario Bernal MA. Nano Page RN documented in this encounter [facility] 03-31-2024 Telephone encounter Note Received. Completed and on providers desk for signature. Mario Bernal MA [facility] 03-30-2024 Telephone encounter Note Paperwork printed and given to Mario Bernal MA. Nano Page RN [facility] 03-29-2024 Note Addended by: EAN EID on: 03/29/2024 04:36 PM Modules accepted: Orders [facility] 03-29-2024 Miscellaneous Notes Addended by: EAN EID on: 03/29/2024 04:36 PM Modules accepted: Orders documented in this encounter [facility] 03-29-2024 Telephone encounter Note Ok for work letter. Due to her N/V will treat BV after 12 weeks or she is having less Nausea. Thanks, Ean Eid APRN.CNM [facility] 03-29-2024 Miscellaneous Notes Ok for work letter. Due to her N/V will treat BV after 12 weeks or she is having less Nausea. Thanks, Ean Eid APRN.CNM 7w3d See below. Patient also viewed her +BV results. Advised that BV is not typically treated until the second trimester, but would verify this with CHANDA. Vera Gramajo, EBONI documented in this encounter [facility] 03-29-2024 Telephone encounter Note 7w3d See below. Patient also viewed her +BV results. Advised that BV is not typically treated until the second trimester, but would verify this with CHANDA. Vera Gramajo, RN [facility] 03-24-2024 Note HNO ID: [id number] Author: EAN EID APRN.NHIM Service: ? Author Type: Frame Expander Type: Progress Notes Filed: 03/29/2024 12:52 Note Text: INITIAL OB ASSESSMENT HPI: Rip is a 23 year old White here to establish Obstetrical Care. Patient's last menstrual period was 01/29/2024 (approximate). from OB Dating Form. was unplanned but accepted Complaints: Severe nausea/vomiting Went to [place] ER 03/18/24 Dx Norovirus- was given Phenergan . Now nausea is subtle. Taking phenergan, mildly effective. No energy, unable to workout. Has not been able to keep down vitamin since last week. OB History T1 L1 SAB0 IAB0 Ectopic0 Multiple0 Live Births1 Previous history: Prior : never History of 4th degree laceration: No History of shoulder dystocia: No History of Hypertensive disorders including pre-eclampsia or gestational hypertension: No History of gestational diabetes: No Patient's Risk Screening for delivery: Have you had a prior pina between 20w and 36w6d? No How many pregnancies have you had before? 1 Did you have a previous baby with a GBS Infection? No Please select all that apply for any prior : N/A MEDICAL/PSYCHOSOCIAL HISTORY: History of hemorrhage or bleeding concerns: No Thyroid Disease: No History of chronic hypertension: No History of pre-existing diabetes: No ABO/RH(D) Date Value Ref Range Status 05/17/2015 O POSITIVE Final No weight on file for this encounter. Last Pap: History of abnormal pap: No Prior treatment for cervical dysplasia: N/A. Last HPV: History of STDs: None Partner History of STDs: None Did you have a partner with Herpes? No Tobacco use: No E-Cigarette/Vaping Use: No Caffeine use: No Drug use: No Alcohol use: No Multivitamin with Folic acid: Yes Would refuse blood transfusion if medically necessary: No Social Needs: How often does this describe you? I don't have enough money to pay my bills: Never Within the past 12 months, have you worried that your food would run out before you had money to buy more? Never In the past 12 months, has lack of reliable transportation kept you from going to medical appointments or work, or from getting things needed for daily living? Never In the past 12 months, have you had any concerns about having a place to live, or about the condition or quality of your housing? Never Would you like more information on any of the following (please check all that apply)? Not interested Social History: Do you have any history of depression, anxiety, PTSD, or other mood problems? No Do you have a history of abuse or trauma that may impact your experience? No Are you currently employed? Yes - [employer] Depression/Anxiety Screening: denies symptoms of depression. OB Depression and Anxiety Screening- This Encounter (since 03/23/2024) Over the past 2 weeks have you felt down, depressed, or hopeless? Negative Over the past two weeks, have you felt little interest or pleasure in doing things?? Negative Feeling nervous, anxious or on edge 0-Not at all Not being able to stop or control worrying 0-Not al all Anxiety Pre-Screening Total (If >/= 3 additional questions will be reviewed) 0 Genetic Screening: Partner present: Yes Patient verbalized knowledge of partner family health history: Yes Do you or your partner have any personal or family history of defects not previously discussed: No Do you have history of a complicated by anomaly, genetic condition, or demise: No Preeclampsia Risk Screening: Screening for prevention of preeclampsia: High risk factors: None Moderate risk ractors: None OB Risk Screening: Completed, no positive findings documented. Marital Status:Co-habitating Partner: Name: Giancarlo Garcia Age: 26 Occupation: [employer] Gender: Male PAST MEDICAL HISTORY Diagnosis Date Eczema neck primarily Encounter for insertion of Mirena IUD 05/28/2017 Encounter for IUD removal 2020 Thyroglossal duct cyst 02/03/2012 resolved PAST SURGICAL HISTORY Procedure Laterality Date NONE Current Outpatient Medications Medication Sig Dispense Refill PNV no.95/ferrous fum/folic ac ( ORAL) Take 1 tablet by mouth once daily. W/ DHA AND Folic acid promethazine HCl (PHENERGAN ORAL) Take 12.5 mg by mouth three times a day as needed (FOR NAUSEA/VOMITING). L.acidoph-B.lactis-B.longum (FLORAJEN3) 460 mg (7.5-6- 1.5 bill. cell) cap Take 1 capsule by mouth once daily. (Patient not taking: Reported on 03/24/2024) 30 capsule 2 esomeprazole (NEXIUM) 20 mg capsule Take 1 capsule by mouth daily before breakfast for 14 days. 14 capsule 0 levonorgestrel (MIRENA) 20 mcg/24 hr (5 years) IUD Inserted in office (Patient not taking: Reported on 03/24/2024) 1 Each 0 No current facility-administered medic (more content not included)... [facility] 03-24-2024 History of Presen t illness Narrative INITIAL OB ASSESSMENT HPI: Rip is a 23 year old White here to establish Obstetrical Care. Patient's last menstrual period was 01/29/2024 (approximate). from OB Dating Form. was unplanned but accepted Complaints: Severe nausea/vomiting Went to [place] ER 03/18/24 Dx Norovirus- was given Phenergan . Now nausea is subtle. Taking phenergan, mildly effective. No energy, unable to workout. Has not been able to keep down vitamin since last week. OB History T1 L1 SAB0 IAB0 Ectopic0 Multiple0 Live Births1 Previous history: Prior : never History of 4th degree laceration: No History of shoulder dystocia: No History of Hypertensive disorders including pre-eclampsia or gestational hypertension: No History of gestational diabetes: No Patient's Risk Screening for delivery: Have you had a prior pina between 20w and 36w6d? No How many pregnancies have you had before? 1 Did you have a previous baby with a GBS Infection? No Please select all that apply for any prior : N/A MEDICAL/PSYCHOSOCIAL HISTORY: History of hemorrhage or bleeding concerns: No Thyroid Disease: No History of chronic hypertension: No History of pre-existing diabetes: No ABO/RH(D) Date Value Ref Range Status 05/17/2015 O POSITIVE Final No weight on file for this encounter. Last Pap: History of abnormal pap: No Prior treatment for cervical dysplasia: N/A. Last HPV: History of STDs: None Partner History of STDs: None Did you have a partner with Herpes? No Tobacco use: No E-Cigarette/Vaping Use: No Caffeine use: No Drug use: No Alcohol use: No Multivitamin with Folic acid: Yes Would refuse blood transfusion if medically necessary: No Social Needs: How often does this describe you? I don't have enough money to pay my bills: Never Within the past 12 months, have you worried that your food would run out before you had money to buy more? Never In the past 12 months, has lack of reliable transportation kept you from going to medical appointments or work, or from getting things needed for daily living? Never In the past 12 months, have you had any concerns about having a place to live, or about the condition or quality of your housing? Never Would you like more information on any of the following (please check all that apply)? Not interested Social History: Do you have any history of depression, anxiety, PTSD, or other mood problems? No Do you have a history of abuse or trauma that may impact your experience? 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 OB Depression and Anxiety Screening- This Encounter (since 03/23/2024) Over the past 2 weeks have you felt down, depressed, or hopeless? Negative Over the past two weeks, have you felt little interest or pleasure in doing things? Negative Feeling nervous, anxious or on edge 0-Not at all Not being able to stop or control worrying 0-Not al all Anxiety Pre-Screening Total (If >/= 3 additional questions will be reviewed) 0 Genetic Screening: Partner present: Yes Patient verbalized knowledge of partner family health history: Yes Do you or your partner have any personal or family history of defects not previously discussed: No Do you have history of a complicated by anomaly, genetic condition, or demise: No Preeclampsia Risk Screening: Screening for prevention of preeclampsia: High risk factors: None Moderate risk ractors: None OB Risk Screening: Completed, no positive findings documented. Marital Status:Co-habitating Partner: Name: Giancarlo Garcia Age: 24 Occupation: [employer] Gender: Male PAST MEDICAL HISTORY Diagnosis Date Eczema neck primarily Encounter for insertion of Mirena IUD 05/28/2017 Encounter for IUD removal 2020 Thyroglossal duct cyst 02/03/2012 resolved PAST SURGICAL HISTORY Procedure Laterality Date NONE Current Outpatient Medications Medication Sig Dispense Refill PNV no.95/ferrous fum/folic ac ( ORAL) Take 1 tablet by mouth once daily. W/ DHA & Folic acid promethazine HCl (PHENERGAN ORAL) Take 12.5 mg by mouth three times a day as needed (FOR NAUSEA/VOMITING). L.acidoph-B.lactis-B.longum (FLORAJEN3) 460 mg (7.5-6- 1.5 bill. cell) cap Take 1 capsule by mouth once daily. (Patient not taking: Reported on 03/24/2024) 30 capsule 2 esomeprazole (NEXIUM) 20 mg capsule Take 1 capsule by mouth daily before breakfast for 14 days. 14 capsule 0 levonorgestrel (MIRENA) 20 mcg/24 hr (5 years) IUD Inserted in office (Patient not taking: Reported on 03/24/2024) 1 Each 0 No current facility-administered medications for this visit. Allergies As of Date: 03/28/2024 Allergen Noted Reaction AMOXICILLIN 04/14/2005 GI Upset Fully Assessed 03/24/2024 Does patient have penicillin allergy: No REVIEW OF SYSTEMS: GENERAL: Negative for: Fever or Chills HEENT: Negative for: Headache, Impaired Vision, Ringing in Ears, Nosebleeds NECK: Negative for: Swelling, Pain, Stiffness RESPIRATORY: Negative for: Cough, Shortness of breath, Wheezing GASTROINTESTINAL: Negative for: Heartburn, Constipation, Diarrhea, Blood in stool, Vomiting MUSCULOSKELETAL: Negative for: Muscle or joint pain, stiffness, Joint swelling NEUROLOGIC/PSYCHIATRIC: Negative for: Weakness, Paralysis, Numbness, Tingling, Tremor, Anxiety, Depression, Memory loss SKIN: Negative for: Rash, Itching GENITOURINARY: Negative for: vaginal itching, vaginal discharge, hematuria or dysuria SENSITIVE EXAM: The sensitive examination was discussed with the Patient or Patient's Authorized High Pressure Boiler Operator. As applicable, any other physician, advance practice provider, medical student, or other health professional student that will be observing or involved in the sensitive examination for educational or training purposes was discussed with the Patient or Authorized High Pressure Boiler Operator. The Patient or Authorized High Pressure Boiler Operator has agreed to proceed with the sensitive examination. (Sensitive examination includes inspection and/or palpation of the breasts, pelvis, prostate and anorectal regions). PHYSICAL EXAM: LMP 01/29/2024 BP 122/78 Ht 161 cm (5' 3.39) Wt 53.5 kg (118 lb) LMP 01/29/2024 (Approximate) BMI 20.65 kg/m GENERAL: pleasant in no apparent distress DERMATOLOGY: Normal, without lesions, non-icteric, and non-hirsute NECK: Supple, full range of motion, no adenopathy, and thyroid normal CHEST: Normal inspiratory effort BREAST: soft, non-tender, symmetric, no dominant mass, normal nipple-areolar complex, no lymphadenopathy, and no nipple discharge ABDOMEN: soft, non-tender, and no masses NEURO: alert and oriented x3,exam grossly non-focal PELVIS: External genitalia normal without lesions. Perineal body intact. No vaginal or cervical lesions. Cervix closed. Uterus week size. No adnexal masses or tenderness. Clinical Pelvimetry: Pelvimetry clinically assessed as adequate Limited OB ultrasound exam: single intrauterine , positive cardiac activity, crown-rump length 7w2d, and normal bilateral adnexa Lmp 01/30/24 8w2d US 7w2d FELICIA: 11/12/24 by US ASSESSMENT: 23 year old at 7w6d wks gestational age PLAN: 1) Patient oriented to practice. Patient given new OB orientation folder. Discussed nutrition, folic acid supplementation, dietary guidelines, exercise, smoking, alcohol, caffeine, and drug use. Discussed gestational weight gain guidelines. Discussed routine OB labs including STD/HIV. Discussed how to access Your guide to a health and the Hair And Makeup Designer. Discussed hemoglobin electrophoresis. Patient: Accepts Reviewed midwifery and mallet cutter services that are available. 2) Screening: Hemoglobin A1C: ordered Baby Aspirin: The patient has been counseled about the potential benefits of low dose aspirin in and our recommendation that this be offered to all patients, regardless of whether they meet the high risk criteria specified above. She Accepts Aneuploidy Screening: Discussed aneuploidy screening, nuchal translucency/first trimester early anatomy ultrasound and NIPT. The risks/benefits and limitations of NIPT/aneuploidy screening were reviewed including the potential for false negative and false positive results. The availability of genetic counseling was reviewed. Information on aneuploidy screening was provided. The patient is uncertain. She will call back if she wants to proceed with screening. Pt aware of timing. Myriad Carrier Screening: Discussed myriad carrier screening. We discussed the availability of professional-society guided carrier screening and reviewed the conditions screened and limitations of screening. The availability of genetic counseling was reviewed. Information on carrier screening was provided. The patient will check with insurance 3) Patient offered option of Virtual Visits. Patient prefers in person visits. 4) FELICIA 11/12/24 by US today, dating updated Follow up in 4 weeks or sooner prn. Ean Eid APRN.CNM documented in this encounter [facility] 03-24-2024 Instructions Ean Eid APRN.CNM - 03/24/2024 12:54 PM EST Please select the following link to access the [facility] Your Guide to a Healthy . [email or web address] Capsule 250mg by mouth once daily Share with Women Nausea and Vomiting During Do all women have nausea or vomiting during ? About one in 4 women have only mild nausea. Three of every 10 women have nausea that is bad enough to interfere with their daily lives. Half of all women have both nausea and vomiting during the first months of . Nausea and vomiting during tends to be the worst at 8 to 10 weeks after your last menstrual period. It usually goes away by 12 to 16 weeks after your last period. Nausea and vomiting during is often called morning sickness but can occur all day long or at any time in the day or night. What causes nausea and vomiting during ? The cause of nausea and vomiting during is not known for sure. Changes in hormone levels may be involved. If your mother had morning sickness when she was , you may be more likely to have nausea and vomiting during . A history of motion sickness or stomach problems before you got may be another risk factor. Nausea during is worse if you are dehydrated (there is not enough fluid in your body) or if the level of sugar in your blood is low from not eating often enough. Are nausea and vomiting during dangerous? Mild nausea and vomiting may make you feel awful, but it will not hurt you or your baby. You can talk to your health care provider about ways to make you feel better if nausea and or vomiting is making it hard for you to do your normal activities. Lots of vomiting that keeps you from keeping any food down is rare, but severe vomiting can cause health problems. You should call your health care provider if any of the following happen: You are not able to keep any liquids or foods down for 24 hours You are vomiting several times a day or after every meal You have abdominal pain, difficulty urinating, or a fever You do not urinate as often as usual and your urine is dark in color You are weak, dizzy, or faint when you stand up You do not gain weight or you lose weight in a week How are nausea and vomiting treated? Nausea or vomiting during is treated in 3 steps: 1. Simple diet changes in what you eat and how often you eat may lessen nausea and help you avoid vomiting. This is all it takes for many women. 2. If diet changes are not enough, you can try eating ayana or using acupressure bands. Both have been shown to decrease nausea in research studies. 3. If the nausea and/or vomiting are making it hard to do your usual activities, your health care provider can prescribe medication. Your health care provider can talk with you about how often you have nausea and are vomiting then help you decide which of the following ways to treat nausea and vomiting will be best for you. Step One: Lifestyle and Diet Changes Drink small amounts of fluids often all day long. Drinking a small amount at one time will also help the nausea lessen. Cold drinks may make you feel better than hot drinks will. Eat small meals every 2 to 3 hours. Do notwait to be hungry or thirsty before you eat or drink. Eat something plain like crackers, toast, or cereal in themorning. Some women find it helps to eat something before getting out of bed. Avoid eating foods that have strong odors. Avoid foods that are greasy, fried, spicy, or very hot. Try eating foods that are high in carbohydrates, such as potatoes, noodles, rice, or toast.[employer] www.sharewithwomen.org Do not lie down right after eating. Some women say dairy products like yogurt are helpful, but this does not work for every woman. vitamins may make your nausea worse. If you take your vitamin at night or with food, it may not make you nauseated. Your provider can also help you find a vitamin that does not make your nausea worse. Vitamins that do not have iron in them are less likely to cause your stomach to be upset. Children s vitamins that have folic acid can also be used. If you stop taking a multivitamin, you should take one tablet of folic acid daily (0.4 mg, which is 400 micrograms per day). Folic acid tablets will not worsen nausea. Step Two: Treatments that Do Not Use Medications Ayana Ayana has been used for treating nausea since ancient times and can lessen nausea. Ayana root tea, ayana gum, ayana snaps, ayana syrup added to water, ayana melissa, and all other forms of ayana are safe to use in . You can also buy ayana capsules at a drug store. The dose of ayana that has been studied for nausea and vomiting in is 1 gram per day. Some forms of ayana like tea or cookies do not list the dose. Ask your health care provider or pharmacist how often you should take ayana products that do not have the dose of ayana listed. Acupressure Bands Seabands are wristbands with a pressure point placed on the inside of your wrist. They are often used for motion sickness. Some women find them helpful for nausea during , and they are safe. Step Three: Medication There are several different types of nauseamedicines that work well and are safe for you and your baby. Because nausea and vomiting is caused by different triggers in your body, you and your health care provider can work together to find the medicine that is right for you. There are both odnn-wlj-zrbtlrh and prescription medicines that can be used if your nausea and vomiting are severe. Inpv-Jqd-Lnoyxgy Medication Ldff-bqr-xnigpmy medications for motion sickness should not be taken during unless recommended by your health care provider. Many women have found that vitamin B6 is helpful for making mild nausea better. Vitamin B6 does not help stop vomiting. Your health care provider can help you choose the dose and how often to take vitamin B6 if you want to try it. Prescription Medication If your nausea and vomiting continues after trying lifestyle and diet changes and mbqt-zul-zpmleps medications or you are vomiting frequently, you may need a prescription medication. There are several different prescription medicines that have been studied and found to be safe for you and your baby. Your health care provider can talk with you about these medicines. For More Information [facility] Nausea and Vomiting Helpline http://[email or web address]/women/ morningSickness.jsp Ondansetron (Zofran ) October 08, 2019 This sheet talks about exposure to ondansetron in a and while . This information should not take the place of medical care and advice from your healthcare provider. What is ondansetron? Ondansetron is a medication used to treat nausea and vomiting that may be caused by surgery, chemotherapy, or radiation therapy. Ondansetron has also been prescribed during to help with symptoms of nausea and vomiting in (NVP). NVP is also referred to as morning sickness . Ondansetron is taken by mouth, infused into a vein (by IV) or given by injection into a muscle (IM). Ondansetron is sold under the brand name Zofran . What can I do to help control my nausea and vomiting? [employer] has a helpful fact sheet on nausea in with recommendations. You can review it here: https://HealthWyse.org/fact-s heets/vlkhxa-dydiaihi-fcmbrgicv -nvp/pdf/. Also, eating small meals often, drinking plenty of clear fluids, and avoiding triggers (such as odors, heat, and spicy or high fat foods) can help. Talk to your healthcare provider about which NVP treatments are right for you. I take ondansetron. Can it make it harder for me to become ? There are no studies that have looked to see if ondansetron could make it harder for a person to get . Studies in animals did not find that ondansetron would affect the ability to get . Does taking ondansetron increase the chance for miscarriage? Miscarriage can occur in any . One study did not find that miscarriage happened more often for those who reported that they used ondansetron in the first trimester of . Does taking ondansetron increase the chance of defects? Every starts out with a 3-5% chance of having a defect. This is called the background risk. Most studies have found no increased chance for defects among thousands of people who used ondansetron in the first trimester of . A few studies reported a very small (less than 1%) increase in the chance for a cleft palate (an opening in the roof of the mouth that may be repaired with surgery) or a heart defect. Because of other factors that could affect the pregnancies exposed to ondansetron, it is not known if ondansetron actually increases the chance of defects. Could taking ondansetron cause other complications? Studies did not find a higher chance of loss, delivery (delivery before 37 weeks of ), or low weight when ondansetron was used during . At higher doses, there have been reports that ondansetron use might cause a heart rhythm problem (called QT interval prolongation) in the person taking ondansetron. In severe cases, this could become an abnormal heart rhythm known as Torsades de Pointes. If you are taking ondansetron, you can talk to your healthcare provider about how to watch for changes in your heart rhythm. Does taking ondansetron in cause long-term problems in behavior or learning for the baby? One study looked at 78 infants who were exposed to ondansetron at any time during . The infants were looked at between 7 days to 2 months of age and did not show any signs of unusual behaviors. A single follow-up survey for about 25 of these children was sent in by the parents. The children were between 1 to 5 years old. The survey asked about behavior. The surveys did not report behavior differences in these children compared to children who were not exposed ondansetron during . There are no other studies looking at the use of ondansetron in and long-term effects for the baby. Can I breastfeed while taking ondansetron? There have been no studies in humans looking at the use of ondansetron during . Studies in animals suggest that ondansetron enters breast milk, but the effects of ondansetron on a are not known. If ondansetron use is necessary, it is not usually a reason to stop . A different drug may be considered, especially while a or . Be sure to talk to your healthcare provider about all your questions. I take ondansetron. Can it make it harder for me to get my partner or increase the chance of defects? There are no human studies looking at male use of ondansetron. Animal studies have not shown any effect on male fertility. In general, exposures that fathers and sperm donor have are unlikely to increase risks to a . For more information, please see the [employer]To[employer] fact sheet Paternal Exposures at https://mothertobaby.org/fact-s heets/fksiiyzv-xzorcvvpg-jnfxow ncy/pdf/. documented in this encounter [facility] 03-21-2024 Telephone encounter Note S: pt significant other (S/O) calling [facility] with appt request B: LMP 01/30 A: LMP 01/30. Has not been seen yet. Started 2 nights ago with vomiting and diarrhea, still going on. Last 2 weeks has been nauseous, tired, loss of appetite. Given promethazine in ER. Pt S/O calling to see if she can be seen sooner than 03/28 she already had scheduled at [facility]. R: RN looked at both [place] and [facility] appts and unable to find any IPV or GLASS SILVERER sooner than 03/28, RN advised pt S/O to contact her previous office at [facility] in the morning to see if there are any cancellations, pt S/O voiced understanding. Reason for Disposition Protocols used: Menstrual Period - Missed or [id number] [facility] 03-21-2024 Miscellaneous Notes S: pt significant other (S/O) calling [facility] with appt request B: LMP 01/30 A: LMP 01/30. Has not been seen yet. Started 2 nights ago with vomiting and diarrhea, still going on. Last 2 weeks has been nauseous, tired, loss of appetite. Given promethazine in ER. Pt S/O calling to see if she can be seen sooner than 120 she already had scheduled at [facility]. R: RN looked at both [place] and [facility] appts and unable to find any IPV or GLASS SILVERER sooner than 03/28, RN advised pt S/O to contact her previous office at [facility] in the morning to see if there are any cancellations, pt S/O voiced understanding. Reason for Disposition Protocols used: Menstrual Period - Missed or [id number] documented in this encounter [facility] 03-18-2024 Hospital Discharg e instructions Amee Banks PA-C - 03/18/2024 10:47 PM EST You are seen today for nausea vomiting . You also had an elevated blood pressure reading on arrival, which completely resolved while in the ER after fluids. Please take the Phenergan as prescribed, follow-up with your AUTOMOTIVE PAINTER HELPER. Return to the ER with worsening. In the medical field, there is always a level of diagnostic uncertainty, even if this uncertainty is low. For this reason, it is important to immediately return to the emergency department if you have any new symptoms, worsening symptoms, change of symptoms, or if you have any other concerns. We would be happy to re-evaluate you. Otherwise, please take your medications as prescribed and follow-up as recommended. documented in this encounter [facility] 03-18-2024 Emergency department Note EMERGENCY DEPARTMENT ENCOUNTER Pt Name: Rip Ames Birthdate 2000 Date of evaluation: 03/18/2024 ED Provider: Amee Banks PA-C CHIEF COMPLAINT Chief Complaint Patient presents with Morning Sickness HISTORY OF PRESENT ILLNESS (Location/Symptom, Timing/Onset, Context/Setting, Quality, Duration, Modifying Factors, Severity) Note limiting factors. I wore appropriate PPE for the entirety of this encounter. HPI Rip Ames is a 23 y.o. female who presents to the emergency department presented the emergency department for evaluation of concern for morning sickness. Patient states that she is currently G2, P1, with follow-up with an AUTOMOTIVE PAINTER HELPER on the of this month, but has been unable to see them. Called them today because she is been having nausea vomiting all week in the morning, and then laying around in bed all day because she has been feeling well. They told her that they were unable to send her any other medications but she has been seen by their office since 2019, recommended she come to the ER for further evaluation management. She has already tried B6, as well as some Unisom. She states that this has been helping, she denies any urinary symptoms. No vaginal bleeding no vaginal discharge. No abdominal pain. States she just had this recurrent nausea, and dry heaving. She states he is not able to eat or drink much because she has been feeling well, this prompted to come to the ER. Nursing Notes were reviewed. Limitations to history: None Outside historians: None REVIEW OF SYSTEMS Review of Systems 14 systems reviewed, positives and pertinent negatives as per HPI. All other systems were reviewed and are negative. PAST MEDICAL HISTORY History reviewed. No pertinent past medical history. SURGICAL HISTORY History reviewed. No pertinent surgical history. CURRENT MEDICATIONS Discharge Medication List as of 03/18/2024 10:59 PM CONTINUE these medications which have NOT CHANGED Details Multiple Vitamin (multivitamin) tablet Take 1 tablet by mouth daily., Historical Med pyridoxine (Vitamin B-6) 25 MG tablet Take 25 mg by mouth daily., Historical Med ALLERGIES Amoxicillin FAMILY HISTORY Family History Problem Relation Name Age of Onset No Known Problems Mother No Known Problems Father SOCIAL HISTORY Social History Socioeconomic History Marital status: Single Tobacco Use Smoking status: Never Smokeless tobacco: Never Vaping Use Vaping status: Never Used Substance and Sexual Activity Alcohol use: Never Drug use: Never Sexual activity: Yes Partners: Male Social History Narrative Merged History Encounter SCREENINGS PHYSICAL EXAM ED Triage Vitals [03/18/242035] Temp Heart Rate Resp BP 36.4 C (97.6 F) 86 16 (!) 142/79 SpO2 Temp Source Heart Rate Source Patient Position 100 % Temporal Monitor -- BP Location FiO2 (%) -- -- Physical Exam Vitals and nursing note reviewed. Constitutional: General: She is not in acute distress. Appearance: Normal appearance. She is well-developed. HENT: Head: Normocephalic and atraumatic. Eyes: Conjunctiva/sclera: Conjunctivae normal. Cardiovascular: Rate and Rhythm: Normal rate and regular rhythm. Pulses: Normal pulses. Heart sounds: No murmur heard. Pulmonary: Effort: Pulmonary effort is normal. No respiratory distress. Breath sounds: Normal breath sounds. Abdominal: Palpations: Abdomen is soft. Tenderness: There is no abdominal tenderness. Comments: ABDOMEN: The abdomen is soft and nontender. There is no guarding, rigidity, rebound tenderness. No right or left CVA tenderness at this time. Patient has no hernias or masses noted. No McBurney's point tenderness. No Alfonso sign. Musculoskeletal: General: No swelling. Cervical back: Neck supple. Skin: General: Skin is warm and dry. Capillary Refill: Capillary refill takes less than 2 seconds. Neurological: General: No focal deficit present. Mental Status: She is alert and oriented to person, place, and time. Psychiatric: Mood and Affect: Mood normal. DIAGNOSTIC RESULTS RADIOLOGY (Per Emergency Physician): Interpretation per the Radiologist below, if available at the time of this note: No orders to display LABS: Labs Reviewed COMPREHENSIVE METABOLIC PANEL - Abnormal Result Value SODIUM 136 POTASSIUM 3.7 CHLORIDE 106 CARBON DIOXIDE 20 (*) ANION GAP 10 UREA NITROGEN 9 CREATININE 0.59 GLUCOSE 84 CALCIUM 9.1 AST (SGOT) 16 ALT 9 ALKALINE PHOSPHATASE 47 ALBUMIN 3.9 BILIRUBIN, TOTAL 0.9 TOTAL PROTEIN 6.6 eGFR >90.0 CBC WITH AUTO DIFFERENTIAL - Normal Auto WBC 9.8 RBC 4.49 Hemoglobin 13.8 Hematocrit 39.4 MCV 87.8 MCH 30.7 MCHC 35.0 RDW 12.0 Platelets 254 MPV 10.1 nRBC 0.0 Neutrophils Relative 71.7 Lymphocytes Relative 19.0 Monocytes Relative 7.6 Eosinophils Relative 0.8 Basophils Relative 0.5 Immature Grans % 0.4 Neutrophils Absolute 7.1 Lymphocytes Absolute 1.9 Monocytes Absolute 0.8 Eosinophils Absolute 0.1 Basophils Absolute 0.1 Immature Grans Absolute 0.0 HCG QUANTITATIVE BLOOD HCG QUANTITATIVE 72,437.0 Narrative: Values in should double every 2 to 3 days for the first 6 weeks. Elevated concentrations of human chorionic gonadotropin (hCG) measured in the first trimester of are observed in normal , but may serve as an indication of chorionic carcinoma, hydatiform mole, or multiple . Decreasing hCG concentrations indicate threatened or missed , recent termination of , ectopic , gestosis or intrauterine . Hanh- and postmenopausal females may have detectable hCG concentrations (< or = to 14 mIU/mL) due to pituitary production of hCG. Serum follicle-stimulating hormone measurement may aid in ruling-out in this population. Cutoffs of greater than 20 to 45 mIU/mL have been suggested and are method dependent. False-elevations (called phantom human chorionic gonadotropin: hCG) may occur with patients who have human antianimal or heterophilic antibodies. Some specimens may not dilute linearly due to abnormal forms of hCG. Elevated hCG concentrations not associated with are found in patients with other diseases such as tumors of the germ cells, ovaries, bladder, pancreas, stomach, lungs, and liver. This test is not intended to detect or monitor tumors or gestational trophoblastic disease. All other labs were within normal range or not returned as of this dictation. EMERGENCY DEPARTMENT COURSE and DIFFERENTIAL DIAGNOSIS/MDM: Vitals: Vitals: 03/18/24203503/18/242250 BP: (!) 142/79 112/56 Pulse: 86 80 Resp: 16 16 Temp: 36.4 C (97.6 F) TempSrc: Temporal SpO2: 100% 100% Medications promethazine (Phenergan) tablet 12.5 mg (12.5 mg Oral Given 03/18/242110) Or promethazine (Phenergan) injection 12.5 mg ( IntraMUSCular See Alternative 03/18/242110) ondansetron (Zofran) injection 4 mg (4 mg IntraVENous Not Given 03/18/242199) sodium chloride 0.9 % bolus 1,000 mL (0 mL IntraVENous Stopped 03/18/242205) promethazine (Phenergan) injection 6.25 mg (6.25 mg IntraMUSCular Given 03/18/242200) I independently evaluated the patient with supervising attending physician available as needed for collaboration. In brief, Rip Ames is a 23 y.o. female who presented to the emergency department presented emergency department for evaluation of concern for nausea vomiting during . Patient states she is approximate about 7 weeks , has follow-up later this month, but has not seen them, so they would not send any nausea vomiting medications to her pharmacy. Nursing notes and medical records reviewed, urgent, patient was hypertensive on arrival, after IV fluids, medications, BP improved to 112/56. Differential considerations included hyperemesis syndrome, nausea vomiting during early , electrolyte derangement, ARIN, anemia, hypertension during , Initial medical management includes patient was given intramuscular Phenergan, IV fluid, as well as p.o. Phenergan. Other medications considered Zofran IV ordered, the patient feeling much better. Initial workup includes hCG quant, CMP, CBC ordered. Other workup considerations included-ultrasound, but at this time patient possibly 7 weeks , she has no lower abdominal no vaginal bleeding no vaginal discharge, so ultrasound was not obtained. Upon reassessment [id number] in no acute distress. Lab workup results CBC shows no leukocytosis no signs of anemia, CMP shows, Nackes at 20 with no other significant derangement. hCG quantitative elevated at 7 2437. Imaging results per radiology-none by my interpretation-none Chronic conditions contributing to patients presentation include-none I have low suspiscion for (effectively ruled ddx out via) low clinical suspicion for intractable nausea vomiting, patient able to tolerate water, as well as crackers here in the ER, states he was feeling better, will be discharged home with Phenergan. I also for low clinical suspicion for significant electrolyte derangement, ARIN, significant anemia, or any significant need for an ultrasound with no vaginal bleeding no abdominal pain, and no significant vaginal discharge. Social determinants to care: none Consulted-none Critical care-none Diagnosis (mild, severe, acute, chronic, stable, unstable)-nausea vomiting during , elevated blood pressure reading Disposition discharged stable condition outpatient follow-up, patient started on Phenergan suppositories versus tablets ordered. We discussed return precautions including unable to tolerate orals. Patient states understanding, if any resistance daily worsen she return to the ER for further evaluation management. Will follow-up with [facility] within the next 1 week. Alternate disposition considered-admission patient had intractable nausea vomiting. Shared decision making-none Prescriptions provided-see above Discussed ED return precautions, recommended consulting their primary doctor or returning to the ED if there are any new or worsening of symptoms, particularly-see above [id number] in one week. [facility] within 1 week. PROCEDURES: Unless otherwise noted below, none Procedures FINAL IMPRESSION 1. Nausea and vomiting during 2. Elevated blood pressure reading DISPOSITION Discharge 03/18/2024 10:45:59 PM PATIENT REFERRED TO: No follow-up provider specified. DISCHARGE MEDICATIONS: Discharge Medication List as of 03/18/2024 10:59 PM START taking these medications Details promethazine (Phenergan) 25 MG suppository Insert 1 suppository (25 mg) into the rectum every 6 hours as needed for nausea or vomiting for up to 3 days., Starting Thu03/18/2024, Until 03/21/2024 at 2359, Normal promethazine (Phenergan) 25 MG tablet Take 1 tablet (25 mg) by mouth every 6 hours as needed for nausea or vomiting for up to 7 days., Starting Thu03/18/2024, Until Thu03/25/2024 at 2359, Normal (Comment: Please note this report has been produced using speech recognition software and may contain errors related to that system including errors in grammar, punctuation, and spelling, as well as words and phrases that may be inappropriate. If there are any questions or concerns please feel free to contact the dictating provider for clarification.) Amee Banks PA-C (electronically signed) Emergency Medicine Provider Amee Banks PA-C 03/19/24 0030 PT to ED ambulatory through triage due to nausea with dry heaving. PT states has been in bed for about a week. PT states she has been taking B6 and Unisom without relief. PT states she has called OB for zofran but they are unable to see her yet. documented in this encounter [facility] 03-18-2024 Emergency department Triage note PT to ED ambulatory through triage due to nausea with dry heaving. PT states has been in bed for about a week. PT states she has been taking B6 and Unisom without relief. PT states she has called OB for zofran but they are unable to see her yet. [facility] 03-18-2024 Physician Emergency department Note EMERGENCY DEPARTMENT ENCOUNTER Pt Name: Rip Ames Birthdate 2000 Date of evaluation: 03/18/2024 ED Provider: Amee Banks PA-C CHIEF COMPLAINT Chief Complaint Patient presents with Morning Sickness HISTORY OF PRESENT ILLNESS (Location/Symptom, Timing/Onset, Context/Setting, Quality, Duration, Modifying Factors, Severity) Note limiting factors. I wore appropriate PPE for the entirety of this encounter. HPI Rip Ames is a 23 y.o. female who presents to the emergency department presented the emergency department for evaluation of concern for morning sickness. Patient states that she is currently G2, P1, with follow-up with an [facility] on the of this month, but has been unable to see them. Called them today because she is been having nausea vomiting all week in the morning, and then laying around in bed all day because she has been feeling well. They told her that they were unable to send her any other medications but she has been seen by their office since 2019, recommended she come to the ER for further evaluation management. She has already tried B6, as well as some Unisom. She states that this has been helping, she denies any urinary symptoms. No vaginal bleeding no vaginal discharge. No abdominal pain. States she just had this recurrent nausea, and dry heaving. She states he is not able to eat or drink much because she has been feeling well, this prompted to come to the ER. Nursing Notes were reviewed. Limitations to history: None Outside historians: None REVIEW OF SYSTEMS Review of Systems 14 systems reviewed, positives and pertinent negatives as per HPI. All other systems were reviewed and are negative. PAST MEDICAL HISTORY History reviewed. No pertinent past medical history. SURGICAL HISTORY History reviewed. No pertinent surgical history. CURRENT MEDICATIONS Discharge Medication List as of 03/18/2024 10:59 PM CONTINUE these medications which have NOT CHANGED Details Multiple Vitamin (multivitamin) tablet Take 1 tablet by mouth daily., Historical Med pyridoxine (Vitamin B-6) 25 MG tablet Take 25 mg by mouth daily., Historical Med ALLERGIES Amoxicillin FAMILY HISTORY Family History Problem Relation Name Age of Onset No Known Problems Mother No Known Problems Father SOCIAL HISTORY Social History Socioeconomic History Marital status: Single Tobacco Use Smoking status: Never Smokeless tobacco: Never Vaping Use Vaping status: Never Used Substance and Sexual Activity Alcohol use: Never Drug use: Never Sexual activity: Yes Partners: Male Social History Narrative Merged History Encounter SCREENINGS PHYSICAL EXAM ED Triage Vitals [03/18/242035] Temp Heart Rate Resp BP 36.4 C (97.6 F) 86 16 (!) 142/79 SpO2 Temp Source Heart Rate Source Patient Position 100 % Temporal Monitor -- BP Location FiO2 (%) -- -- Physical Exam Vitals and nursing note reviewed. Constitutional: General: She is not in acute distress. Appearance: Normal appearance. She is well-developed. HENT: Head: Normocephalic and atraumatic. Eyes: Conjunctiva/sclera: Conjunctivae normal. Cardiovascular: Rate and Rhythm: Normal rate and regular rhythm. Pulses: Normal pulses. Heart sounds: No murmur heard. Pulmonary: Effort: Pulmonary effort is normal. No respiratory distress. Breath sounds: Normal breath sounds. Abdominal: Palpations: Abdomen is soft. Tenderness: There is no abdominal tenderness. Comments: ABDOMEN: The abdomen is soft and nontender. There is no guarding, rigidity, rebound tenderness. No right or left CVA tenderness at this time. Patient has no hernias or masses noted. No McBurney's point tenderness. No Alfonso sign. Musculoskeletal: General: No swelling. Cervical back: Neck supple. Skin: General: Skin is warm and dry. Capillary Refill: Capillary refill takes less than 2 seconds. Neurological: General: No focal deficit present. Mental Status: She is alert and oriented to person, place, and time. Psychiatric: Mood and Affect: Mood normal. DIAGNOSTIC RESULTS RADIOLOGY (Per Emergency Physician): Interpretation per the Radiologist below, if available at the time of this note: No orders to display LABS: Labs Reviewed COMPREHENSIVE METABOLIC PANEL - Abnormal Result Value SODIUM 136 POTASSIUM 3.7 CHLORIDE 106 CARBON DIOXIDE 20 (*) ANION GAP 10 UREA NITROGEN 9 CREATININE 0.59 GLUCOSE 84 CALCIUM 9.1 AST (SGOT) 16 ALT 9 ALKALINE PHOSPHATASE 47 ALBUMIN 3.9 BILIRUBIN, TOTAL 0.9 TOTAL PROTEIN 6.6 eGFR >90.0 CBC WITH AUTO DIFFERENTIAL - Normal Auto WBC 9.8 RBC 4.49 Hemoglobin 13.8 Hematocrit 39.4 MCV 87.8 MCH 30.7 MCHC 35.0 RDW 12.0 Platelets 254 MPV 10.1 nRBC 0.0 Neutrophils Relative 71.7 Lymphocytes Relative 19.0 Monocytes Relative 7.6 Eosinophils Relative 0.8 Basophils Relative 0.5 Immature Grans % 0.4 Neutrophils Absolute 7.1 Lymphocytes Absolute 1.9 Monocytes Absolute 0.8 Eosinophils Absolute 0.1 Basophils Absolute 0.1 Immature Grans Absolute 0.0 HCG QUANTITATIVE BLOOD HCG QUANTITATIVE 72,437.0 Narrative: Values in should double every 2 to 3 days for the first 6 weeks. Elevated concentrations of human chorionic gonadotropin (hCG) measured in the first trimester of are observed in normal , but may serve as an indication of chorionic carcinoma, hydatiform mole, or multiple . Decreasing hCG concentrations indicate threatened or missed , recent termination of , ectopic , gestosis or intrauterine . Hanh- and postmenopausal females may have detectable hCG concentrations (< or = to 14 mIU/mL) due to pituitary production of hCG. Serum follicle-stimulating hormone measurement may aid in ruling-out in this population. Cutoffs of greater than 20 to 45 mIU/mL have been suggested and are method dependent. False-elevations (called phantom human chorionic gonadotropin: hCG) may occur with patients who have human antianimal or heterophilic antibodies. Some specimens may not dilute linearly due to abnormal forms of hCG. Elevated hCG concentrations not associated with are found in patients with other diseases such as tumors of the germ cells, ovaries, bladder, pancreas, stomach, lungs, and liver. This test is not intended to detect or monitor tumors or gestational trophoblastic disease. All other labs were within normal range or not returned as of this dictation. EMERGENCY DEPARTMENT COURSE and DIFFERENTIAL DIAGNOSIS/MDM: Vitals: Vitals: 03/18/24203503/18/242250 BP: (!) 142/79 112/56 Pulse: 86 80 Resp: 16 16 Temp: 36.4 C (97.6 F) TempSrc: Temporal SpO2: 100% 100% Medications promethazine (Phenergan) tablet 12.5 mg (12.5 mg Oral Given 03/18/242110) Or promethazine (Phenergan) injection 12.5 mg ( IntraMUSCular See Alternative 03/18/242110) ondansetron (Zofran) injection 4 mg (4 mg IntraVENous Not Given 03/18/242199) sodium chloride 0.9 % bolus 1,000 mL (0 mL IntraVENous Stopped 03/18/242205) promethazine (Phenergan) injection 6.25 mg (6.25 mg IntraMUSCular Given 03/18/242200) I independently evaluated the patient with supervising attending physician available as needed for collaboration. In brief, Rip Ames is a 23 y.o. female who presented to the emergency department presented emergency department for evaluation of concern for nausea vomiting during . Patient states she is approximate about 7 weeks , has follow-up later this month, but has not seen them, so they would not send any nausea vomiting medications to her pharmacy. Nursing notes and medical records reviewed, urgent, patient was hypertensive on arrival, after IV fluids, medications, BP improved to 112/56. Differential considerations included hyperemesis syndrome, nausea vomiting during early , electrolyte derangement, ARIN, anemia, hypertension during , Initial medical management includes patient was given intramuscular Phenergan, IV fluid, as well as p.o. Phenergan. Other medications considered Zofran IV ordered, the patient feeling much better. Initial workup includes hCG quant, CMP, CBC ordered. Other workup considerations included-ultrasound, but at this time patient possibly 7 weeks , she has no lower abdominal no vaginal bleeding no vaginal discharge, so ultrasound was not obtained. Upon reassessment [id number] in no acute distress. Lab workup results CBC shows no leukocytosis no signs of anemia, CMP shows, Nackes at 20 with no other significant derangement. hCG quantitative elevated at 7 2437. Imaging results per radiology-none by my interpretation-none Chronic conditions contributing to patients presentation include-none I have low suspiscion for (effectively ruled ddx out via) low clinical suspicion for intractable nausea vomiting, patient able to tolerate water, as well as crackers here in the ER, states he was feeling better, will be discharged home with Phenergan. I also for low clinical suspicion for significant electrolyte derangement, ARIN, significant anemia, or any significant need for an ultrasound with no vaginal bleeding no abdominal pain, and no significant vaginal discharge. Social determinants to care: none Consulted-none Critical care-none Diagnosis (mild, severe, acute, chronic, stable, unstable)-nausea vomiting during , elevated blood pressure reading Disposition discharged stable condition outpatient follow-up, patient started on Phenergan suppositories versus tablets ordered. We discussed return precautions including unable to tolerate orals. Patient states understanding, if any resistance daily worsen she return to the ER for further evaluation management. Will follow-up with [facility] within the next 1 week. Alternate disposition considered-admission patient had intractable nausea vomiting. Shared decision making-none Prescriptions provided-see above Discussed ED return precautions, recommended consulting their primary doctor or returning to the ED if there are any new or worsening of symptoms, particularly-see above [id number] in one week. [facility] [facility] within 1 week. PROCEDURES: Unless otherwise noted below, none Procedures FINAL IMPRESSION 1. Nausea and vomiting during 2. Elevated blood pressure reading DISPOSITION Discharge 03/18/2024 10:45:59 PM PATIENT REFERRED TO: No follow-up provider specified. DISCHARGE MEDICATIONS: Discharge Medication List as of 03/18/2024 10:59 PM START taking these medications Details promethazine (Phenergan) 25 MG suppository Insert 1 suppository (25 mg) into the rectum every 6 hours as needed for nausea or vomiting for up to 3 days., Starting Thu03/18/2024, Until Thu03/21/2024 at 2359, Normal promethazine (Phenergan) 25 MG tablet Take 1 tablet (25 mg) by mouth every 6 hours as needed for nausea or vomiting for up to 7 days., Starting Thu03/18/2024, Until Thu03/25/2024 at 2359, Normal (Comment: Please note this report has been produced using speech recognition software and may contain errors related to that system including errors in grammar, punctuation, and spelling, as well as words and phrases that may be inappropriate. If there are any questions or concerns please feel free to contact the dictating provider for clarification.) Amee Banks PA-C (electronically signed) Emergency Medicine Provider Amee Banks PA-C 03/19/[address] [facility] 03-18-2024 Telephone encounter Note Pt notified and voiced understanding. Chelsei Granger RN [facility] 01-10-2025 Miscellaneous Notes Pt notified and voiced understanding. Chelsie Granger, EBONI Patient will need to give time for the vitamin B and Unisom to get into system. She will need seen in ED prior to NOB if unable to keep food or liquids down for 24 hours. Yakelin Hoffman APRN.CNM LMP 01/29/25 - 6w6d Calling c/o nausea. Not vomiting, but having constant nausea all day. Minimal appetite from it. Tried vitamin B6 and unisom x2 days - today is day 3. With Unisom she slept 16 hours the first dose. Unable to tolerate taking it daily. Asking if she can get a prescription for something more. However, she has not been seen in office since 2019. NOB scheduled for 03/28/24. Please advise. Chelly Magaña RN documented in this encounter [facility] 03-18-2024 Telephone encounter Note Patient will need to give time for the vitamin B and Unisom to get into system. She will need seen in ED prior to NOB if unable to keep food or liquids down for 24 hours. Yakelin Hoffman APRN.CNM [facility] Work Phone: 03-18-2024 Telephone encounter Note LMP 01/29/25 - 6w6d Calling c/o nausea. Not vomiting, but having constant nausea all day. Minimal appetite from it. Tried vitamin B6 and unisom x2 days - today is day 3. With Unisom she slept 16 hours the first dose. Unable to tolerate taking it daily. Asking if she can get a prescription for something more. However, she has not been seen in office since 2019. NOB scheduled for 03/28/24. Please advise. Chelly Magaña RN [facility] 06-03-2022 History of Presen t illness Narrative Images from the original note were not included. [facility] [address] [facility] [address] Dept: [phone] Dept Loc: [phone] Subjective Rip Ames is a 22 y.o. year old female who presents to the office with the following complaint(s): Chief Complaint Patient presents with Ear Problem Patient here today w/complaints of Right Ear fullness x 2 days . Pt denies any of the following: Hearing loss, tinnitus, otorrhea,nausea or vomiting. Pt does admit to felling dizzy at times HPI Patient presents urgent care today with complaints of ear fullness to right ear-expressing concern for cerumen impaction. Patient states she has had to have ears irrigated previously. Patient states she believes she has impaction today. Patient states her left ear feels okay. Patient states she did leave work and will need a note to return today. Review of Systems Constitutional: Negative for activity change. HENT: Positive for hearing loss (right- hx impaction). Negative for congestion, ear discharge, ear pain and tinnitus. Allergic/Immunologic: Negative for environmental allergies and food allergies. Neurological: Positive for dizziness (occasional- not recent). Negative for headaches. Allergies Allergen Reactions Amoxicillin Hives and Rash Other reaction(s): AOF, GI Upset No past medical history on file. No past surgical history on file. Family History Problem Relation Name Age of Onset No Known Problems Mother No Known Problems Father Social History Socioeconomic History Marital status: Single Tobacco Use Smoking status: Never Smokeless tobacco: Never Vaping Use Vaping Use: Never used Substance and Sexual Activity Alcohol use: Never Drug use: Never Sexual activity: Yes Partners: Male Social History Narrative Merged History Encounter No current outpatient medications on file prior to visit. No current facility-administered medications on file prior to visit. Objective BP 133/70 Pulse 88 Temp 36.8 C (98.3 F) (Tympanic) Resp 18 Ht 5' 4 (1.626 m) Wt 125 lb (56.7 kg) LMP 04/29/2022 (Approximate) SpO2 100% BMI 21.46 kg/m Physical Exam Vitals and nursing note reviewed. Constitutional: General: She is not in acute distress. Appearance: Normal appearance. She is normal weight. She is not ill-appearing, toxic-appearing or diaphoretic. HENT: Head: Normocephalic. Right Ear: There is impacted cerumen. Left Ear: There is no impacted cerumen (wax noted- not impacted). Tympanic membrane is not injected, erythematous or bulging. Ears: Comments: TM unable to be visualized in right ear. Dry flaking skin surrounding both ears and sides of face-eczema appearance Nose: Nose normal. Mouth/Throat: Mouth: Mucous membranes are moist. Eyes: Pupils: Pupils are equal, round, and reactive to light. Pulmonary: Effort: Pulmonary effort is normal. No respiratory distress. Abdominal: General: Abdomen is flat. Skin: General: Skin is warm and dry. Neurological: General: No focal deficit present. Mental Status: She is alert and oriented to person, place, and time. Mental status is at baseline. Psychiatric: Mood and Affect: Mood normal. Behavior: Behavior normal. Thought Content: Thought content normal. Judgment: Judgment normal. Assessment: 1. Impacted cerumen of right ear Rip was seen today for ear problem. Diagnoses and all orders for this visit: Impacted cerumen of right ear (Primary) Patient agreeable/consented to have ears irrigated. See MA charting. Patient tolerated well. TM of right ear was able to be visualized after irrigation-no apparent signs of infection-erythema/bulging/inje ction. Patient advised to follow-up with PCP for any new or worsening symptoms otherwise. Patient given note to return to work. Patient agreeable plan of care. Medication indications, directions, and side effects were discussed. Patient given educational materials - see patient instructions. Discussed use, benefit, and side effects of prescribed medications. All patient questions answered. Pt voiced understanding and aware of treatment plan. Follow up as directed. (Please note that portions of this note may have been completed with a voice recognition program. Efforts were made to edit the dictations but occasionally words aremis-transcribed.) JOSE Silva [birth year] documented in this encounter [facility] Evaluation note Diagnosis Impacted cerumen of right ear- Primary Impacted cerumen documented [facility] Diagnosis Nausea and vomiting during - Primary Elevated blood pressure reading Elevated blood pressure reading without diagnosis of hypertension [facility] Diagnosis Encounter for supervision of normal in multigravida- Primary with uncertain dates in first trimester History of vacuum extraction assisted delivery Other postprocedural status Supervision of other normal Nausea and vomiting in Unspecified vomiting of , unspecified as to episode of care [facility] Diagnosis Supervision of other normal - Primary Bleeding in early Unspecified hemorrhage in early , unspecified as to episode of care 8 weeks gestation of state, incidental [facility] Diagnosis 11 weeks gestation of - Primary state, incidental Encounter for supervision of other normal in first trimester History of vacuum extraction assisted delivery Other postprocedural status documented [facility] this [facility] Diagnosis Encounter for screening for malformation using ultrasound- Primary 12 weeks gestation of state, incidental documented [facility] this [facility] Diagnosis Encounter for supervision of other normal in second trimester- Primary History of vacuum extraction assisted delivery Other postprocedural status 15 weeks gestation of state, incidental Nausea and vomiting in Unspecified vomiting of , unspecified as to episode of care headache in second trimester [facility] Diagnosis Supervision of high risk in second trimester (HCC)- Primary Unspecified high-risk 20 weeks gestation of (HCC) state, incidental History of vacuum extraction assisted delivery Other postprocedural status Encounter for supervision of normal in multigravida (HCC) with uncertain dates in first trimester (HCC) documented [facility] this [facility] Diagnosis Encounter for anatomic survey (HCC)- Primary Encounter for anatomic survey 20 weeks gestation of (HCC) state, incidental documented [facility] Diagnosis Screening for diabetes mellitus- Primary 24 weeks gestation of (HCC) state, incidental Supervision of high risk in second trimester (HCC) Unspecified high-risk documented [facility] Diagnosis Supervision of high risk in third trimester (HCC)- Primary Unspecified high-risk 28 weeks gestation of ([facility]) state, incidental History of vacuum extraction assisted delivery Other postprocedural status History of oligohydramnios documented [facility] this [facility]* Diagnosis Elevated glucose tolerance test- Primary Impaired glucose tolerance test documented [facility] this [facility] Diagnosis Supervision of high risk in third trimester (HCC)- Primary Unspecified high-risk History of vacuum extraction assisted delivery Other postprocedural status History of oligohydramnios 30 weeks gestation of ([facility]) state, incidental documented [facility] this [facility] Diagnosis Supervision of high risk in third trimester (HCC)- Primary Unspecified high-risk 33 weeks gestation of ([facility]) state, incidental Uterine size-date discrepancy, third trimester ([facility]) documented in this encounter [facility] Attachments The following attachments cannot be sent through Care Everywhere. * Ear Wax Impaction Discharge Instructions (Namibian) [facility] Diagnostic Procedure Only (Routine) - Closed Specialty Diagnoses / Procedures Referred By Javier steinberg Referred To Contact [facility] Diagnoses Encounter for supervision of normal in multigravida with uncertain dates in first trimester Procedures OBSTETRIC ULTRASOUND WHI US PREG UTERUS AFTER 1ST TRIMEST GESTATION Ean Eid APRN.CNM [address] [place] [address] [facility] [address] [place] [id number] Referral ID Status Reason Start Date Expiration Date V isits Requested Visits Authorized [id number] Closed Auto-Generate d Referral 03/28/2024 03/28/2025 1 1 * Diagnostic Procedure Only (Routine) - Pending Review Specialty Diagnoses / Procedures Referred By Javier steinberg Referred To Contact [facility] Diagnoses Encounter for supervision of normal in multigravida with uncertain dates in first trimester Procedures OBSTETRIC ULTRASOUND WHI US PREG UTERUS AFTER 1ST TRIMEST GESTATION Ean Eid APRN.CNM [address] [place] [place] [address] [facility] [address] [place] [address] Referral ID Status Reason Start Date Expiration Date Visits Requested Visits Authorized [id number] Pending Review Auto-Generat ed Referral 03/28/2024 03/28/2025 1 1 [facility] Summary Purpose Family History No Family History Records FoundNo Family History Records FoundNo Family History Records FoundNo Family History Records Found Advance Directives No Advanced Directives Records FoundNo Advanced Directives Records FoundNo Advanced Directives Records FoundNo Advanced Directives Records Found Additional Source Comments INFORMATION SOURCE (unrecogn ized section and content) DATE CREATED AUTHOR 01/24/2018 [facility] DATE CREATED AUTHOR AUTHOR'S ORGANIZ ATION 01/24/2018 [facility] DATE CREATED AUTHOR AUTHOR'S ORGANIZ ATION 03/23/2024 [facility] DATE CREATED AUTHOR AUTHOR'S ORGANIZ ATION 10/15/2024 [facility] Reason for Visit (unrecogniz ed section and content) Reason Comments Ear Problem Patient here today w /complaints of Right Ear fullness x 2 days . Pt denies any of the following: Hearing loss, tinnitus, otorrhea,nausea or vomiting. Pt does admit to felling dizzy at times Reason Comments Nausea Reason Comments Morning Sickness Reason Onset Date Comments Problem 03/21/2024 Reason Comments Initial OB Visit Specialty Diagnoses / Procedures Referred By Javier steinberg Referred To Contact [employer] Diagnoses Encounter for supervision of normal in multigravida 1ST OB LMP 01/30/2024 Procedures NEW I OB 1ST EXAM Ean Eid APRN.CNM [address] [place] [address] [employer] [address] [place] [address] Referral ID Status Reason Start Date Expiration Date V isits Requested Visits Authorized [id number] Denied Financial Clearance Required - OON Payor 03/28/2024 06/26/2024 1 0 Reason Onset Date Comments Care 04/06/2024 Specialty Diagnoses / Procedures Referred By Contac t Referred To Contact [employer] Diagnoses Brown/ Mcmillin discharge Procedures Brown/ Mcmillin discharge Ean Eid APRN.CNM [address] [place] [address] [employer] [address] [place] [address] Referral ID Status Reason Start Date Expiration Date V isits Requested Visits Authorized [id number] Closed Financial Clearance Required - OON Payor Patient Cleared - Qualified HCAP/FA 04/05/2024 07/04/2024 1 1 Reason Onset Date Comments Care 04/29/2024 Specialty Diagnoses / Procedures Referred By Contac t Referred To Contact Diagnoses Procedures OFFICE VISIT, EST PT., LEVEL 2 TC EXTERNAL-NON [facility] [place] [address] Referral ID Status Reason Start Date Expiration Date V isits Requested Visits Authorized [id number] Closed Patient Cleared - Qualified 100% FAS 03/07/2024 06/05/2024 99 99 Reason Comments US Specialty Diagnoses / Procedures Referred By Contac t Referred To Contact [facility] Diagnoses Encounter for supervision of normal in multigravida with uncertain dates in first trimester Procedures OBSTETRIC ULTRASOUND WHI US PREG UTERUS AFTER 1ST TRIMEST GESTATION Ean Eid APRN.CNM [address] [place] [address] Phone: tel: fax: [facility] [address] [place] [address] Referral ID Status Reason Start Date Expiration Date Visits Requested Visits Authorized [id number] Authorized Auto-Generated Referral OON Notification Letter Patient Cleared - Qualified HCAP/FA 03/28/2025 99 99 Reason Onset Date Comments Care 05/27/2024 Reason Onset Date Comments Care 06/22/2024 Specialty Diagnoses / Procedures Referred By Javier t Referred To Contact [facility] Diagnoses Encounter for supervision of normal in multigravida (HCC) with uncertain dates in first trimester (HCC) Procedures OBSTETRIC ULTRASOUND WHI US PREG UTERUS AFTER 1ST TRIMEST GESTATION Ean Eid APRN.[facility] [address] [place] [address] Phone: tel: fax: [facility] [address] [place] [address] Referral ID Status Reason Start Date Expiration Date V isits Requested Visits Authorized [id number] Closed Auto-Generate d Referral 03/28/2024 03/28/2025 1 1 Reason Onset Date Comments Care 07/20/2024 Reason Onset Date Comments Care 08/18/2024 Reason Comments Results Reason Onset Date Comments Care 08/31/2024 Reason Onset Date Comments Care 09/19/2024 Care Teams (unrecognized sec tion and content) Fountain Attendant Relationship Specialty Start Date End Date [address] [place], [place] [address] PCP - General 06/25/20 Source Comments (unrecognize d section and content) In the event this informatio n is protected by the Federal Confidentiality of Alcohol and Drug Abuse Patient Records regulations: The Federal rules restrict any use of the information to criminally investigate or prosecute any alcohol or drug abuse patient.[facility] the event this information is protected by the Federal Confidentiality of Alcohol and Drug Abuse Patient Records regulations: The Federal rules restrict any use of the information to criminally investigate or prosecute any alcohol or drug abuse patient.[facility] the event this information is protected by the Federal Confidentiality of Alcohol and Drug Abuse Patient Records regulations: The Federal rules restrict any use of the information to criminally investigate or prosecute any alcohol or drug abuse patient.[facility] Center[facility] the event this information is protected by the Federal Confidentiality of Alcohol and Drug Abuse Patient Records regulations: The Federal rules restrict any use of the information to criminally investigate or prosecute any alcohol or drug abuse patient.[facility] Center[facility] the event this information is protected by the Federal Confidentiality of Alcohol and Drug Abuse Patient Records regulations: The Federal rules restrict any use of the information to criminally investigate or prosecute any alcohol or drug abuse patient.[facility] Center[facility] the event this information is protected by the Federal Confidentiality of Alcohol and Drug Abuse Patient Records regulations: The Federal rules restrict any use of the information to criminally investigate or prosecute any alcohol or drug abuse patient.[facility] CenterIn the event this information is protected by the Federal Confidentiality of Alcohol and Drug Abuse Patient Records regulations: The Federal rules restrict any use of the information to criminally investigate or prosecute any alcohol or drug abuse patient.[facility] CenterIn the event this information is protected by the Federal Confidentiality of Alcohol and Drug Abuse Patient Records regulations: The Federal rules restrict any use of the information to criminally investigate or prosecute any alcohol or drug abuse patient.[facility] CenterIn the event this information is protected by the Federal Confidentiality of Alcohol and Drug Abuse Patient Records regulations: The Federal rules restrict any use of the information to criminally investigate or prosecute any alcohol or drug abuse patient.[facility] CenterIn the event this information is protected by the Federal Confidentiality of Alcohol and Drug Abuse Patient Records regulations: The Federal rules restrict any use of the information to criminally investigate or prosecute any alcohol or drug abuse patient.[facility] CenterIn the event this information is protected by the Federal Confidentiality of Alcohol and Drug Abuse Patient Records regulations: The Federal rules restrict any use of the information to criminally investigate or prosecute any alcohol or drug abuse patient.[facility] CenterIn the event this information is protected by the Federal Confidentiality of Alcohol and Drug Abuse Patient Records regulations: The Federal rules restrict any use of the information to criminally investigate or prosecute any alcohol or drug abuse patient.[facility] CenterIn the event this information is protected by the Federal Confidentiality of Alcohol and Drug Abuse Patient Records regulations: The Federal rules restrict any use of the information to criminally investigate or prosecute any alcohol or drug abuse patient.[facility] CenterIn the event this information is protected by the Federal Confidentiality of Alcohol and Drug Abuse Patient Records regulations: The Federal rules restrict any use of the information to criminally investigate or prosecute any alcohol or drug abuse patient.[facility] CenterIn the event this information is protected by the Federal Confidentiality of Alcohol and Drug Abuse Patient Records regulations: The Federal rules restrict any use of the information to criminally investigate or prosecute any alcohol or drug abuse patient.[facility] CenterIn the event this information is protected by the Federal Confidentiality of Alcohol and Drug Abuse Patient Records regulations: The Federal rules restrict any use of the information to criminally investigate or prosecute any alcohol or drug abuse patient.[facility] CenterIn the event this information is protected by the Federal Confidentiality of Alcohol and Drug Abuse Patient Records regulations: The Federal rules restrict any use of the information to criminally investigate or prosecute any alcohol or drug abuse patient.[facility] CenterIn the event this information is protected by the Federal Confidentiality of Alcohol and Drug Abuse Patient Records regulations: The Federal rules restrict any use of the information to criminally investigate or prosecute any alcohol or drug abuse patient.[facility] Scheduled Active and Recently Administ ered Medications (unrecognized section and content) Medication Order 03/16/2024 03/17/2024 03/18/2024 ondansetron (Zofran) injection 4 mg 4 mg, IntraVENous, Once, On Thu03/18/24 at 2200, For 1 dose 2199 (Not Given - Pr ovider: Chelo Breaux RN - Reason: Other - Comment: no longer needed) promethazine (Phenergan) injection 6.25 mg (COMPLETED) 6.25 mg, IntraMUSCular, Once, On Thu03/18/24 at 2200, For 1 dose, Only to be given as IM injection. 2200 (Given - Provid er: Chelo Breaux RN) sodium chloride 0.9 % bolus 1,000 mL (COMPLETED) 1,000 mL, IntraVENous, at 1,000 mL/hr, Administer over 1 Hours, Once, On Thu03/18/24 at 2054, For 1 dose 2105 (New Bag - Prov ider: Chelo Breaux RN)2205 (Stopped - Provider: Chelo Breaux RN) PRN Medication Order 03/16/2024 03/17/2024 03/18/2024 promethazine (Phenergan) injection 12.5 mg(Linked Group 1) 12.5 mg, IntraMUSCular, Every 6 hours PRN, nausea, vomiting, Starting on Thu03/18/24 at 2051, Only to be given as IM injection. 2110 (See Alternativ e - Provider: Chelo Breaux RN) promethazine (Phenergan) tablet 12.5 mg(Linked Group 1) 12.5 mg, Oral, Every 6 hours PRN, nausea, vomiting, Starting on Thu03/18/24 at 2051 2110 (Given - Provid er: Chelo Breaux RN) Linked Groups Order Group 1: promethazine (Phenergan) tablet 12.5 mgJump to med 12.5 mg, Oral, Every 6 hours PRN, nausea, vomiting, Starting on Thu03/18/24 at 2051 Or promethazine (Phenergan) injection 12.5 mgJump to med 12.5 mg, IntraMUSCular, Every 6 hours PRN, nausea, vomiting, Starting on Thu03/18/24 at 2051, Only to be given as IM injection. FOR RECORDS PERTAINING TO PATIENTS WHO ARE OR HAVE BEEN ENROLLED IN A CHEMICAL DEPENDENCY/SUBSTANCEABUSE PROGRAM, SOME INFORMATION MAY BE OMITTED. This clinical summary was aggregated from multiple sources. Caution should be exercised in using it in the provision of clinical care. This summary normalizes information from multiple sources, and as a consequence, information in this document may materially change the coding, format and clinical context of patient data. In addition, data may be omitted in some cases. CLINICAL DECISIONS SHOULD BE BASED ON THE PRIMARY CLINICAL RECORDS. [employer] [facility]. provides no warranty or guarantee of the accuracy or completeness of information in this document.
[2024-10-16] MEDS: 0.9% Saline Lock 10 ML Syringe IV (15:00)
[2024-10-16 15:44] LABS: Hematocrit 34.8 % (37-47); Hemoglobin 11.5 g/dL (12.0-15.0); Mean Corp Hgb Conc 33.0 g/dL (32-36); Mean Corpuscular Volume 82.5 fL (81-99); Mean Platelet Vol. 11.1 fl (6.2-12.0); Platelet Count 190 K/mm3 (150-450); RBC Distribution Width CV 12.5 % (11.6-14.6); RBC Distribution Width SD 37.5 fl (35.1-43.9); Red Blood Count 4.22 M/mm3 (4.2-5.4); White Blood Count 10.6 K/mm3 (4.4-11.0)
[2024-10-16 16:16] LABS: AST(SGOT) 19 U/L (<=31); Alanine Aminotransfer ALT/SGPT 13 U/L (<=34); Estimated Creatinine Clearance 205.04 ml/min (50-250)
[2024-10-16 16:21] LABS: Creatinine, Urine (random) 16.30 mg/dL (28.00-217.00); Protein, Urine (Random) < 6.0 mg/dL (0.0-12.0); Protein:Creat Ratio UNABLE TO CALCULATE mg/g CRE (0-200)
[2024-10-16 16:31] LABS: Uric Acid 3.0 mg/dL (2.6-6.0)
--- NOTE | 2024-10-19 19:53 | OB.TRI.NOTE ---
HPI - General General Date of Admission: 10/16/24 Date of Service: 10/16/24 Chief Complaint: headache HPI Narrative RIP AMES, is a 24 F who presents for [place]BORNE in Maternal Data Information Final FELICIA: 11/04/24 Gestational age: 37 2/7 PFSH PFSH Home Medications ?Medication ?Instructions ?Recorded ?Last Taken ?Type vits no.130-ferrous fum 1 ea PO DAILY 07/10/15 10/16/24 06:25 History 27 mg iron-folic acid 800 mcg 2 ea tablet ( Vitamin) aspirin 81 mg chewable tablet 1 tab PO DAILY 10/16/24 10/16/24 06:25 History (Karly Chewable Low Dose Aspirin) 1 TAB Allergy/AdvReac Type Severity Reaction Status Date / Time amoxicillin AdvReac Hives Verified 10/16/24 14:35 Social History Smoking Status: Never smoker History Elective abortions Hx Para 0 Spontaneous abortions Hx # Term Pregnancies Ectopic pregnancies Hx # Pregnancies Multiple births # of living children NST FHR Rate Baby A Baseline: 135 Variability:: Moderate Accelerations:: 15 x 15 Decelerations:: None NST Reactive:: Yes FHR Category:: Category I Uterine Activity:: q4-7 min Assessment & Plan (1) 37 weeks gestation of : (2) Headache in , antepartum: PLAN: no evidence of preeclampsia. F/u in office with in 1 week or return prn
== END 2024-10-16 17:20 | disposition home or self-care (01) ==
LOC: WPOUT 14:16 → WP 14:19
PROVIDERS: Referring Provider Advanced Practice Midwife; Visit Provider Advanced Practice Midwife
DX: O99.891 Other specified diseases and conditions complicating pregnancy (principal); Z3A.37 37 weeks gestation of pregnancy; R51.9 Headache, unspecified
CPT/HCPCS: 36415; 59025; 59050; 82565; 82570; 84156; 84450; 84460; 84550; 85027; 99221; A4216; G0378

== ENCOUNTER 2024-10-27 19:11 | Outpatient (CLI) | payer MEDICAID, SELFPAY ==
[2024-10-27] VITALS (8 sets, daily range): BP systolic 119–143; BP diastolic 59–76; PULSE 93–113; RESP 16; TEMP 36.3–36.4; O2SAT 98–99; BMI 27.8
--- NOTE | 2024-10-31 22:32 | OB.TRI.NOTE ---
HPI - General General Date of Admission: 10/27/24 Date of Service: 10/27/24 Chief Complaint: contractions HPI Narrative RIP AMES, is a 24 F who presents with contractions after a membrane sweep. No lof or vb. Good FM. Contractions are irregular and only minimally painful. PFSH PFSH Home Medications ?Medication ?Instructions ?Recorded ?Last Taken ?Type vits no.130-ferrous fum 1 ea PO DAILY 07/10/15 10/27/24 History 27 mg iron-folic acid 800 mcg tablet ( Vitamin) aspirin 81 mg chewable tablet 1 tab PO DAILY 10/16/24 10/27/24 History (Karly Chewable Low Dose Aspirin) Allergy/AdvReac Type Severity Reaction Status Date / Time amoxicillin AdvReac Hives Verified 10/27/24 20:13 Social History Smoking Status: Never smoker History Elective abortions Hx Para 0 Spontaneous abortions Hx # Term Pregnancies Ectopic pregnancies Hx # Pregnancies Multiple births # of living children NST FHR Rate Baby A Baseline: 130 Variability:: Moderate Accelerations:: 15 x 15 Decelerations:: None NST Reactive:: Yes FHR Category:: Category I Uterine Activity:: irregular ctx's Assessment & Plan (1) 37 weeks gestation of : (2) Uterine contractions: PLAN: After a membrane sweep. No cervical change after observation. D/c home with return precautions.
== END 2024-10-27 23:32 | disposition home or self-care (01) ==
LOC: WPOUT 19:31 → WP 19:32
PROVIDERS: Visit Provider Obstetrics & Gynecology
DX: O47.03 False labor before 37 completed weeks of gestation, third trimester (principal); Z3A.37 37 weeks gestation of pregnancy
CPT/HCPCS: 59025; 59050; 99221; G0378

== ENCOUNTER 2024-11-01 07:15 | Inpatient (IN) | payer MEDICAID, SELFPAY ==
[2024-11-01] VITALS (53 sets, daily range): BP systolic 101–139; BP diastolic 57–81; PULSE 97–127; RESP 14–16; TEMP 36.1–36.9; O2SAT 86–100; BMI 27.0
--- OUTSIDE RECORDS SUMMARY | 2024-11-01 07:15 | XMS RPT_ITS | CCD ---
Author Organization [facility] Care Team Providers Care Horseshoer Name Role Phone [facility] Unavailable Unavailable [facility] Unavailable Unavailable Geel Lia Primary Care Provider [phone] Unavailable Primary Care Provider Unavailabl e Unavailable Primary Care Provider Unavailabl e GEEL LIA Primary Care Unavailable Care Physician, No Primary Primary Care Provider Unavailable Cass Eid CNM Attending Provider Cass Eid CNM Referring Provider [phone] Dr. Thania Samaniego DO Attending Provider Care Physician, No Primary Primary Care Unava ilable Thania Samaniego Attending Unavailable Eid, Cass Referring Unavailable Eid, Cass Attending Unavailable Care Physician, No Primary Primary Care Unava ilable STANTON CASS Attending Unavailable EID, CASS Attending Unavailable EID, CASS Referring Unavailable MADHURI VERA Attending Unavailable EID, CASS Attending Unavailable MADHURI, VERA Referring Unavailable EID, CASS Referring Unavailable PLOTTS, YAKELIN Attending Unavailable MADHURIVERA ORDAZ Attending Unavailable WISWELLJENNIFERA Attending Unavailable EID, CASS Referring Unavailable EID, CASS Referring Unavailable HAURY, TARUN Attending Unavailable EID, CASS Referring Unavailable PLOTTS, YAKELIN Attending Unavailable PLOTTS, YAKELIN Referring Unavailable HAURY, TARUN Attending Unavailable PLOTTS, YAKELIN Referring Unavailable MADHURIEFRAINVERA Attending Unavailable WISWELL, THANIA Referring Unavailable MADHURIVERA Attending Unavailable WISWELL, THANIA Referring Unavailable Allergies Allergy Classification Reported Allergen(s) Allergy Type Date of Onset Reaction(s) Facility (20 sources) amoxicillin; Translations: [AMOXICILLIN] Drug Allergy 6 Hives, Rash, GI Upset [facility] Other [facility] Medications Current Medications Medication Drug Class(es) Dates Sig (Normalized) Sig (Original) aspirin 81 mg chewable tablet (20 sources) Platelet Aggregation Inhibitor, Nonsteroidal Anti-inflammatory Drug Start: 10-16-2024 Aspirin (Karly Chewable Aspirin) 81 mg tablet,chewable Active 1 {tbl} PO DAILY October 16, 2024 12:00am Start: 03-28-2024 End: 06-22-2024 take 1 tablet by mouth once daily aspirin, enteric coated (ECOTRIN LOW STRENGTH) 81 mg EC tablet Indications: Encounter for supervision of normal in multigravida ([facility]) , with uncertain dates in first trimester ([facility]) Take 1 tablet by mouth once daily. [...] Active PNV no.95/ferrous fum/folic ac ( ORAL) (20 sources) take 1 tablet by mouth once daily before mealtime PNV no.95/ferrous fum/folic ac ( ORAL) Take 1 tablet by mouth once daily. W/ DHA & Folic acid Active Vit No.034-Nevl-Pgbzf ( Vitamins) 1 EACH tablet (2 sources) Start: 07-10-2015 take 1 tablet by mouth once daily Vit No.851-Bpyg-Xinpv ( Vitamins) 1 EACH tablet Active 1 NMA PO DAILY July 10, 2015 12:00am pyridoxine hydrochloride 25 mg oral tablet (3 sources) take 1 tablet by mouth once daily pyridoxine (Vitamin B-6) 25 MG tablet Take 25 mg by mouth daily. Active Completed/Discontinued Medications Medication Drug Class(es) Dates Sig (Normalized) Sig (Original) bifidobacterium animalis [id number] unt / bifidobacterium longum [id number] unt / lactobacillus acidophilus [id number] unt oral capsule (2 sources) Start: 07-13-2018 [...] mouth once daily. 30 tablet 4 03/28/2024 06/22/2024 Discontinued levonorgestrel 0.214478 mg/hr intrauterine system (2 sources) Progestin, Progestin-containi ng Intrauterine Device Start: 05-28-2017 End: 03-28-2024 levonorgestrel (MIRENA) 20 mcg/24 hr (5 years) IUD Indications: Encounter for insertion of Mirena IUD , Encounter for IUD insertion Inserted in office 1 Each 05/28/2017 03/28/2024 Discontinued (Course of therapy completed) ondansetron 4 mg oral tablet (8 sources) Serotonin-3 Receptor Antagonist Start: 03-28-2024 End: 06-22-2024 take 1 tablet by mouth every eight hours as needed ondansetron (ZOFRAN) 4 mg tablet Take 1 tablet by mouth every 8 hours as needed for nausea/vomiting. 30 tablet 3 03/28/2024 06/22/2024 Discontinued 1 ml promethazine hydrochloride 25 mg/ml injection (18 sources) Phenothiazine Start: 03-18-2024 End: 03-18-2024 inject 6.25 mg by intramuscular injection once 6.25 mg, IntraMUSCular, Once, On Thu03/18/24 at 2200, For 1 dose, Only to be given as IM injection. Start: 03-18-2024 End: 03-19-2024 take 1 tablet by mouth every six hours as needed for nausea and vomiting promethazine (Phenergan) tablet 12.5 mg Start: 03-18-2024 End: 03-25-2024 take 1 tablet by mouth every six hours as needed for nausea and vomiting promethazine (Phenergan) 25 MG tablet Take 1 tablet (25 mg) by mouth every 6 hours as needed for nausea or vomiting for up to 7 days. 28 tablet 03/18/2024 03/25/2024 Active Start: 03-18-2024 End: 03-21-2024 take 25 mg rectal route every six hours as needed for nausea and vomiting promethazine (Phenergan) 25 MG suppository Insert 1 suppository (25 mg) into the rectum every 6 hours as needed for nausea or vomiting for up to 3 days. 6 each 03/18/2024 03/21/2024 End: 06-22-2024 take 12.5 mg by mouth every eight hours as needed promethazine HCl (PHENERGAN ORAL) Take 12.5 mg by mouth three times a day as needed (FOR NAUSEA/VOMITING). 06/22/2024 Discontinued 50 ml sodium chloride 9 mg/m l injection (2 sources) Start: 03-18-2024 End: 03-18-2024 1,000 mL, IntraVENous, at 1, 000 mL/hr, Administer over 1 Hours, Once, On Thu03/18/24 at 2055, For 1 dose Problems Active Problems Problem Classification Problem Date Documented Date Episodic/Chronic Bacterial infection (1 source) Other specified bacterial agents as the cause of diseases classified elsewhere; Translations: [Other specified bacterial agents as the cause of diseases classified elsewhere] Onset: 12-21-2017 Episodic Diabetes mellitus without complication (14 sources) Abnormal glucose tolerance test; Translations: [Other abnormal glucose] Onset: 08-18-2024 08-18-2024 Episodic Headache; including migraine (1 source) Headache; including migraine; Translations: [Headache, unspecified] Onset: 10-25-2024 Hemorrhage during ; abruptio placenta; placenta previa (1 source) Antepartum hemorrhage; Translations: [Hemorrhage in early , unspecified] 04-06-2024 Episodic Inflammatory diseases of female pelvic organs (1 source) Acute vaginitis; Translations: [Acute vaginitis] Onset: 12-21-2017 Episodic Other circulatory disease (2 sources) Elevated blood pressure; Translations: [Elevated blood-pressure reading, without diagnosis of hypertension] 03-18-2024 Episodic Other circulatory disease (2 sources) Elevated blood-pressure reading, without diagnosis of hypertension; Translations: [Elevated blood-pressure reading, without diagnosis of hypertension] Onset: 03-18-2024 Episodic Other complications of (19 sources) Headache; Translations: [Other specified related conditions, second trimester] Onset: 05-27-2024 Resolved: 07-20-2024 05-27-2024 Episodic Other complications of (2 sources) Uterine size for dates discrepancy; Translations: [Uterine size-date discrepancy, third trimester] 09-19-2024 Episodic Other complications of (1 source) Supervision of high risk , unspecified, third trimester; Translations: [Supervision of high risk in third trimester (HCC)] Onset: 08-18-2024 Episodic Other complications of (1 source) Uterine size-date discrepancy, third trimester; Translations: [Uterine size-date discrepancy, third trimester (HCC)] Onset: 09-19-2024 Episodic Other ear and sense organ disorders (1 source) Impacted cerumen in right ear; Translations: [Impacted cerumen, right ear] Episodic Other and delivery including normal (20 sources) Normal ; Translations: [Encounter for supervision of other normal , unspecified trimester] Onset: 03-28-2024 03-28-2024 Episodic Residual codes; unclassified (1 source) Gestation period, 8 weeks; Translations: [8 weeks gestation of ] 04-06-2024 Episodic Residual codes; unclassified (1 source) Gestation period, 11 weeks; Translations: [11 weeks gestation of ] 04-29-2024 Episodic Residual codes; unclassified (1 source) Gestation period, 12 weeks; Translations: [12 weeks gestation of ] 05-03-2024 Episodic Residual codes; unclassified (1 source) Gestation period, 15 weeks; Translations: [15 weeks gestation of ] 05-27-2024 Episodic Residual codes; unclassified (2 sources) Gestation period, 20 weeks; Translations: [20 weeks gestation of ] 06-22-2024 Episodic Residual codes; unclassified (1 source) Gestation period, 24 weeks; Translations: [24 weeks gestation of ] 07-20-2024 Episodic Residual codes; unclassified (1 source) Gestation period, 28 weeks; Translations: [28 weeks gestation of ] 08-18-2024 Episodic Residual codes; unclassified (13 sources) H/O: Disorder; Translations: [Personal history of other complications of , childbirth and the puerperium] Onset: 08-18-2024 08-18-2024 Episodic Residual codes; unclassified (1 source) Gestation period, 30 weeks; Translations: [30 weeks gestation of ] 08-31-2024 Episodic Residual codes; unclassified (2 sources) Gestation period, 33 weeks; Translations: [33 weeks gestation of ] 09-19-2024 Episodic Residual codes; unclassified (3 sources) Gestation period, 37 weeks; Translations: [37 weeks gestation of ] 10-19-2024 Episodic Residual codes; unclassified (1 source) Gestation period, 38 weeks; Translations: [38 weeks gestation of ] 10-27-2024 Episodic Residual codes; unclassified (1 source) 38 weeks gestation of ; Translations: [38 weeks gestation of (HCC)] Onset: 10-27-2024 Episodic Residual codes; unclassified (1 source) 37 weeks gestation of ; Translations: [37 weeks gestation of (HCC)] Onset: 10-19-2024 Episodic Residual codes; unclassified (1 source) 36 weeks gestation of ; Translations: [36 weeks gestation of (HCC)] Onset: 10-12-2024 Episodic Residual codes; unclassified (1 source) 33 weeks gestation of ; Translations: [33 weeks gestation of (HCC)] Onset: 09-19-2024 Episodic Residual codes; unclassified (1 source) 30 weeks gestation of ; Translations: [30 weeks gestation of (HCC)] Onset: 08-31-2024 Episodic Residual codes; unclassified (1 source) 28 weeks gestation of ; Translations: [28 weeks gestation of (HCC)] Onset: 08-18-2024 Episodic Residual codes; unclassified (2 sources) Personal history of other complications of , childbirth and the puerperium; Translations: [History of oligohydramnios] Onset: 03-28-2024 Episodic Unclassified (1 source) Unknown / UNK(Unknown) Onset: 12-21-2017 Unclassified (3 sources) [facility] Education - COMMON Onset: 03-28-2024 03-28-2024 Unclassified (3 sources) Education - [place] Onset: 03-28-2024 03-28-2024 Urinary tract infections (1 source) Urinary tract infection, site not specified; Translations: [Urinary tract infection, site not specified] Onset: 12-21-2017 Episodic Past or Other Problems Problem Classification Problem Date Documented Date Episodic/Chronic Allergic reactions (20 sources) Eczema; Translations: [Dermatitis, unspecified] Resolved: 05-27-2024 03-04-2021 Episodic Other complications of (20 sources) Late entry into care; Translations: [Supervision of with insufficient care, third trimester] Onset: 05-17-2015 Resolved: 05-28-2017 05-28-2017 Episodic Other complications of (20 sources) Teenage ; Translations: [Supervision of other high risk pregnancies, third trimester] Onset: 05-17-2015 Resolved: 05-28-2017 05-28-2017 Episodic Other complications of (20 sources) Vomiting of , unspecified; Translations: [Unspecified vomiting of , unspecified as to episode of care or not applicable] Onset: 03-18-2024 Resolved: 05-27-2024 03-18-2024 Episodic Other complications of (20 sources) High risk ; Translations: [Supervision of high risk , unspecified, second trimester] Onset: 03-28-2024 06-22-2024 Episodic Other complications of (1 source) Supervision of high risk , unspecified, second trimester; Translations: [Supervision of high risk in second trimester (HCC)] Onset: 06-22-2024 Episodic Other congenital anomalies (20 sources) Thyroglossal duct cyst; 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] Onset: 02-03-2012 Resolved: 08-23-2013 08-23-2013 Chronic Other screening for suspected conditions (not mental disorders or infectious disease) (6 sources) Patient encounter status; Translations: [Encounter for screening for malformations] Onset: 05-03-2024 05-03-2024 Episodic Residual codes; unclassified (20 sources) H/O: previous delivery by vacuum extraction; Translations: [Personal history of other complications of , childbirth and the puerperium] Onset: 03-28-2024 03-28-2024 Episodic Residual codes; unclassified (1 source) 24 weeks gestation of ; Translations: [24 weeks gestation of (HCC)] Onset: 07-20-2024 Episodic Residual codes; unclassified (1 source) 20 weeks gestation of ; Translations: [20 weeks gestation of (HCC)] Onset: 06-22-2024 Episodic Residual codes; unclassified (1 source) 12 weeks gestation of ; Translations: [12 weeks gestation of ] Onset: 05-03-2024 Episodic Residual codes; unclassified (1 source) 11 weeks gestation of ; Translations: [11 weeks gestation of ] Onset: 04-29-2024 Episodic Urinary tract infections (1 source) Urinary tract infections Onset: 12-21-2017 Results Test Name Value Interpretation Reference Range Facility [facility] 10-31-2024 CNPN Telephone (OBGYWM) RIP AMES ([id number]) 2000 F Date Time Provider Department 10/31/24 CASS EID During your visit today, we recorded the following information about you: Cass Eid APRN.CNM 10/31/2024 8:47 AM Signed Can you please call patient and notify her that induction will need to be moved to tomorrow at 7am. Patient to call at 0500 to make sure they are still able to bring her but acuity can change and may need to be moved again as this is an elective induction of labor. We will try our best to accommodate. SOCRATES Cardenas Nano, RN 10/31/2024 8:55 AM Signed Patient notified and voiced understanding. Nano Phan RN Allergies As of Date: 10/31/2024 Noted Allergy Reaction AMOXICILLIN 04/14/2005 8 - GI Upset Date Reviewed: 10/27/2024 Reviewed by: Vera Bautista MD - Fully Assessed Reason for Visit: induction [Other] Prescriptions as of 10/31/2024 - aspirin, enteric coated (ECOTRIN LOW STRENGTH) 81 mg EC tablet Take 1 tablet by mouth once daily. - PNV no.95/ferrous fum/folic ac ( ORAL) Take 1 tablet by mouth once daily. 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 08/23/2013 Late care affecting in third*05/17/2015 05/28/2017 High risk teen in third trimester [O0*05/17/2015 05/28/2017 History of vacuum extraction assisted delivery *03/28/2024 Supervision of high risk in third tri*03/28/2024 Nausea and vomiting in [O21.9] 03/28/2024 05/27/2024 headache in second trimester (HCC) [O*05/27/2024 07/20/2024 History of oligohydramnios [Z87.59] 08/18/2024 Elevated glucose tolerance test [R73.09] 08/18/2024 Encounter Status:Closed by NANO PHAN on 10/31/24 Normal [facility] OB Triage Physician Noteon 0 10-19-2024 OB Triage Physician Note [facility] Medical Records Department [address] [place] [address] OB Triage Physician Note 10/19/241952 MR#: [id number] Acct: [id number] Name: RIP AMES Rep #: [id number] : 2000 From: Kristie Breaux MD PCP: Care Physician,No Primary Status:DEP CLI Y Location: [facility] HPI - General General Date of Admission: 10/16/24 Date of Service: 10/16/24 Chief Complaint: headache HPI Narrative RIP AMES, is a 24 F who presents for [place] in Maternal Data Information Final FELICIA: 11/04/24 Gestational age: 37 2/7 PFSH PFSH Home Medications ???Medication ???Instructions ???Recorded ???Last Taken ???Type vits no.130-ferrous fum 1 ea PO DAILY 07/10/15 10/16/24 06 :25 History 27 mg iron-folic acid 800 mcg 2 ea tablet ( Vitamin) aspirin 81 mg chewable tablet 1 tab PO DAILY 10/16/24 10/16/24 0 6:25 History (Karly Chewable Low Dose Aspirin) 1 TAB Allergy/AdvReac Type Severity Reaction Status Date / Time amoxicillin AdvReac Hives Verified 10/16/24 14:35 Social History Smoking Status: Never smoker History Elective abortions Hx Para 0 Spontaneous abortions Hx # Term Pregnancies Ectopic pregnancies Hx # Pregnancies Multiple births # of living children NST FHR Rate Baby A Baseline: 135 Variability:: Moderate Accelerations:: 15 x 15 Decelerations:: None NST Reactive:: Yes FHR Category:: Category I Uterine Activity:: q4-7 min Assessment Plan (1) 37 weeks gestation of : (2) Headache in , antepartum: PLAN: no evidence of preeclampsia. F/u in office with in 1 week or return prn 10/19/241957 Date Kristie Breaux MD Cosigner Signature (if applicable): Date CC: Dr. Kristie Breaux MD; No Primary Care Physician Signed Normal [facility] URINE OB DIP B/Oon 5 Glucose Ql (U) Negative Neg mg/dL [facility] Interpretation and review of laboratory results Normal [facility] Protein.monoclonal (U) [Mass/Vol] Negative Neg mg/dL [facility] AST(SGOT)Ordered By: Cass Eid on 10-16-2024 AST [Catalytic activity/Vol] 19 U/L Normal <=31 [facility] Comment on above: Performed By: #### L 501.1400, L501.1105, L501.4405, L501.4100, L100.0500, L501.0900 #### [facility] [address] [place], [place], [id number] Automated blood erythrocyte countOrdered By: Cass Eid on 10-16-2024 RBC (Bld) [#/Vol] 4.22 10*6/uL Normal 4.2-5.4 [facility] Comment on above: Performed By: #### L 501.1400, L501.1105, L501.4405, L501.4100, L100.0500, L501.0900 #### [facility] [address] [place], [address] Automated blood hematocrit ( percentage)Ordered By: Cass Eid on 10-16-2024 Hematocrit (Bld) [Volume fraction] 34.8 % Low 37-47 [facility] Comment on above: Performed By: #### L 501.1400, L501.1105, L501.4405, L501.4100, L100.0500, L501.0900 #### [facility] [address] [place], [place], [id number] CBC-Complete Blood Cnt No Di ffon 10-16-2024 RDW SD 37.5 fl Normal 35.1-43.9 [facility] Comment on above: Performed By: #### L 501.1400, L501.1105, L501.4405, L501.4100, L100.0500, L501.0900 #### [facility] [address] [place], [place], [id number] Erythrocyte distribution wid th ratioOrdered By: Cass Eid on 10-16-2024 Erythrocyte distribution width (RBC) [Ratio] 12.5 % Normal 11.6-14.6 [facility] Comment on above: Performed By: #### L 501.1400, L501.1105, L501.4405, L501.4100, L100.0500, L501.0900 #### [facility] [address] [place], [place], [id number] Erythrocyte distribution wid th standard deviationOrdered By: Cass Eid on 10-16-2024 Erythrocyte distribution width (RBC) [Ratio] 37.5 fl 35.1-43.9 [facility] Glomerular filtration rate ( GFR) estimation/1.73 sq m using serum, plasma, or whole bOrdered By: Cass Eid on 10-16-2024 GFR/1.73 sq M.predicted among non-blacks MDRD (S/P/Bld) [Vol rate/Area] 140 mL/min/{1.73_m2} Normal >60 [facility] Comment on above: mL/min/1.73m2 CKD-EP I Creatinine Equation (2020) Result Comment: mL/m in/1.73m2 CKD-EPI Creatinine Equation (2020) Performed By: #### L 501.1400, L501.1105, L501.4405, L501.4100, L100.0500, L501.0900 #### [facility] [address] [facility] [place], [place], [id number] Hemoglobin measurementOrdere d By: Cass Eid on 10-16-2024 Hemoglobin (Bld) [Mass/Vol] 11.5 g/dL Low 12.0-15.0 [facility] Comment on above: Performed By: #### L 501.1400, L501.1105, L501.4405, L501.4100, L100.0500, L501.0900 #### [facility] [address] [facility] [place], [place], [id number] MCV (mean corpuscular volume ) determinationOrdered By: Cass Eid on 10-16-2024 MCV (RBC) [Entitic vol] 82.5 fL Normal 81-99 [facility] Comment on above: Performed By: #### L 501.1400, L501.1105, L501.4405, L501.4100, L100.0500, L501.0900 #### [facility] [address] [place], [address] Mean corpuscular hemoglobin (MCH) determinationOrdered By: Cass Eid on 10-16-2024 MCH (RBC) [Entitic mass] 27.3 pg Normal 27.0-32.0 [facility] Comment on above: Performed By: #### L 501.1400, L501.1105, L501.4405, L501.4100, L100.0500, L501.0900 #### [facility] [address] [place], [place], [id number] Mean corpuscular hemoglobin concentration (MCHC) determinationOrdered By: Cass Eid on 10-16-2024 MCHC (RBC) [Mass/Vol] 33.0 g/dL Normal 32-36 [facility] Comment on above: Performed By: #### L 501.1400, L501.1105, L501.4405, L501.4100, L100.0500, L501.0900 #### [facility] [address] [place], [place], [id number] [phone] Mean platelet volume determi nationOrdered By: Cass Eid on 10-16-2024 Platelet mean volume (Bld) [Entitic vol] 11.1 fL Normal 6.2-12.0 [facility] Comment on above: Performed By: #### L 501.1400, L501.1105, L501.4405, L501.4100, L100.0500, L501.0900 #### [facility] [address] [place], [address] Platelet countOrdered By: Waldo Eid on 10-16-2024 Platelets (Bld) [#/Vol] 190 10*3/uL Normal 150-450 [facility] Comment on above: Performed By: #### L 501.1400, L501.1105, L501.4405, L501.4100, L100.0500, L501.0900 #### [facility] [address] [place], [address] Protein+Creatinine Ratio,Uri neon 10-16-2024 PROT:CRE RATIO UNABLE TO CALCULATE Normal 0-200 [facility] Comment on above: Performed By: #### L 501.1400, L501.1105, L501.4405, L501.4100, L100.0500, L501.0900 #### [facility] [address] [place], [address] PROTEIN,UR.RAN. < 6.0 Normal 0.0-12.0 [facility] Comment on above: Performed By: #### L 501.1400, L501.1105, L501.4405, L501.4100, L100.0500, L501.0900 #### [facility] [address] [place], [address] UR CREAT 16.30 mg/dL Low 28.00-217.00 [facility] Comment on above: Performed By: #### L 501.1400, L501.1105, L501.4405, L501.4100, L100.0500, L501.0900 #### [facility] [address] [place], [address] Random urine creatinine vane urement (mass/volume)Ordered By: Cass Eid on 10-16-2024 Creatinine Unsp time (U) [Mass/Vol] 16.30 mg/dL Low 28.00-217.00 [facility] Serum Creatinine AND GFRon 0 10-16-2024 ECRCL 205.04 ml/min Normal 50-250 [facility] Comment on above: Performed By: #### L 501.1400, L501.1105, L501.4405, L501.4100, L100.0500, L501.0900 #### [facility] [address] [place], [address] Serum creatinine measurement (mass/volume)Ordered By: Cass Eid on 10-16-2024 Creatinine [Mass/Vol] 0.40 mg/dL Low 0.70-1.20 [facility] Comment on above: Performed By: #### L 501.1400, L501.1105, L501.4405, L501.4100, L100.0500, L501.0900 #### [facility] [address] [place], [address] Serum or plasma alanine benjamin otransferase (ALT) measurementOrdered By: Cass Eid on 10-16-2024 ALT [Catalytic activity/Vol] 13 U/L Normal <=34 [facility] Comment on above: Performed By: #### L 501.1400, L501.1105, L501.4405, L501.4100, L100.0500, L501.0900 #### [facility] [address] [place], [address] Serum or plasma uric acid me asurement (mass/volume)Ordered By: Cass Eid on 10-16-2024 Urate [Mass/Vol] 3.0 mg/dL 2.6-6.0 [facility] Comment on above: The drugs N-Acetylcy steine and Metamizole may falsely depress this assay. Uric Acidon 10-16-2024 URIC 3.0 mg/dL Normal 2.6-6.0 [facility] Comment on above: Result Comment: The drugs N-Acetylcysteine and Metamizole may falsely depress this assay. Performed By: #### L 501.1400, L501.1105, L501.4405, L501.4100, L100.0500, L501.0900 #### [facility] [address] [place], [address] Urine protein measurement (m ass/volume)Ordered By: Cass Eid on 10-16-2024 Protein (U) [Mass/Vol] mg/dL 0.0-12.0 [facility] Urine protein/creatinine mas s ratioOrdered By: Cass Eid on 10-16-2024 Protein/Creatinine (U) [Mass ratio] UNABLE TO CALCULATE mg/g CRE 0-200 [facility] White blood cell (WBC) count Ordered By: Cass Eid on 10-16-2024 WBC (Bld) [#/Vol] 10.6 10*3/uL Normal 4.4-11.0 [facility] Comment on above: Performed By: #### L 501.1400, L501.1105, L501.4405, L501.4100, L100.0500, L501.0900 #### [facility] [address] [place], [address] ROUTINE, GROUP B ST REPTOCOCCUS BY PCRon 10-12-2024 ROUTINE, GROUP B STREPTOCOCCUS BY PCR Not detected Normal [facility] Comment on above: Performed By: #### L [id number] #### [facility] CLIA [id number] [address] [place] [address] [place] GLUCOSE GESTATIONAL, 1 HOURo n 08-22-2024 Glucose 1 Hr post Unsp challenge [Mass/Vol] 130 mg/dL Normal 74-179 [facility] Comment on above: Order Comment: Speci men Type: BLOOD SPECIMEN Ordering Facility: [facility] Address: [address] [place] [address] Result Comment: [facility] Congress of Obstetricians and Gynecologists ([place]eth[place]/Aric) guidelines state gestational diabetes mellitus is present when 2 or more of the plasma glucose concentrations meet or exceed the following levels: fastin mg/dl, 1 hr: 180 mg/dl, 2 hr: 155 mg/dl, and 3 hr: 140 mg/dl. Performed By: #### T SPN #### [facility] CLIA [id number] [address] [place] [address] [place] GLUCOSE GESTATIONAL, 2 HOURo n 08-22-2024 Glucose 2 Hr post Unsp challenge [Mass/Vol] 91 mg/dL Normal 74-154 [facility] Comment on above: Order Comment: Luisito rojas Type: BLOOD SPECIMEN Ordering Facility: [facility] Address: [address] [place] [address] Result Comment: [facility] Congress of Obstetricians and Gynecologists ([place]/Aric) guidelines state gestational diabetes mellitus is present when 2 or more of the plasma glucose concentrations meet or exceed the following levels: fastin mg/dl, 1 hr: 180 mg/dl, 2 hr: 155 mg/dl, and 3 hr: 140 mg/dl. Performed By: #### T SPN #### [facility] CLIA [id number] [address] [place] [address] [place] GLUCOSE GESTATIONAL, 3 HOURo n 08-22-2024 Glucose 3 Hr post Unsp challenge [Mass/Vol] 50 mg/dL Low 74-139 [facility] Comment on above: Order Comment: Luisito rojas Type: BLOOD SPECIMENOrdering Facility: [facility] Address: [address] [place] [address] Result Comment: [facility] Congress of Obstetricians and Gynecologists ([place]eth[place]/Aric) guidelines state gestational diabetes mellitus is present when 2 or more of the plasma glucose concentrations meet or exceed the following levels: fastin mg/dl, 1 hr: 180 mg/dl, 2 hr: 155 mg/dl, and 3 hr: 140 mg/dl. Performed By: #### G TGST3 ####[facility] [id number] [place] [address] [place] GLUCOSE GESTATIONAL, FASTING on 08-22-2024 Glucose post fast [Mass/Vol] 77 mg/dL Normal 74-94 [facility] Comment on above: Order Comment: Luisito rojas Type: BLOOD SPECIMENOrdering Facility: [facility] Address: [address] [place] [address] Result Comment: [facility] Congress of Obstetricians and Gynecologists ([place]eth[place]/Aric) guidelines state gestational diabetes mellitus is present when 2 or more of the plasma glucose concentrations meet or exceed the following levels: fastin mg/dl, 1 hr: 180 mg/dl, 2 hr: 155 mg/dl, and 3 hr: 140 mg/dl. Performed By: #### G TGSTF ####[facility] [id number] [place] [address] [place] CBC W Auto Differential pane l (Bld)on 08-18-2024 Basophils (Bld) [#/Vol] 0.03 10*3/uL Normal <0.11 [facility] Comment on above: Order Comment: Speci men Type: BLOOD SPECIMEN Ordering Facility: [facility] Address: [address] [place] [address] Performed By: #### T SPN #### [facility] CLIA [id number] [address] [place] [address] [place] Basophils/100 WBC (Bld) 0.3 % Normal [facility] Comment on above: Order Comment: Speci men Type: BLOOD SPECIMEN Ordering Facility: [facility] Address: [address] [place] [address] Performed By: #### T SPN #### [facility] CLIA [id number] [address] [place] [address] [place] Differential cell count method Nom (Bld) Auto Normal [facility] Comment on above: Order Comment: Speci men Type: BLOOD SPECIMEN Ordering Facility: [facility] Address: [address] [place] [address] Performed By: #### T SPN #### [facility] CLIA [id number] [address] [place] [address] [place] Eosinophils (Bld) [#/Vol] 0.06 10*3/uL Normal <0.46 [facility] Comment on above: Order Comment: Speci men Type: BLOOD SPECIMEN Ordering Facility: [facility] Address: [address] [place] [address] Performed By: #### T SPN #### [facility] CLIA [id number] [address] [place] [address] [place] Eosinophils/100 WBC (Bld) 0.7 % Normal [facility] Comment on above: Order Comment: Speci men Type: BLOOD SPECIMEN Ordering Facility: [facility] Address: [address] [place] [address] Performed By: #### T SPN #### [facility] CLIA [id number] [address] [place] [address] [place] Erythrocyte distribution width (RBC) [Ratio] 12.1 % Normal 11.5-15.0 [facility] Comment on above: Order Comment: Speci men Type: BLOOD SPECIMEN Ordering Facility: [facility] Address: [address] [place] [address] Performed By: #### T SPN #### [facility] CLIA [id number] [address] [place] [address] [place] Hematocrit (Bld) [Volume fraction] 36.0 % Normal 36.0-46.0 [facility] Comment on above: Order Comment: Speci men Type: BLOOD SPECIMEN Ordering Facility: [facility] Address: [address] [place] [address] Performed By: #### T SPN #### [facility] CLIA [id number] [address] [place] [address] [place] Hemoglobin (Bld) [Mass/Vol] 12.4 g/dL Normal 11.5-15.5 [facility] Comment on above: Order Comment: Speci men Type: BLOOD SPECIMEN Ordering Facility: [facility] Address: [address] [place] [address] Performed By: #### T SPN #### [facility] CLIA [id number] [address] [place] [address] [place] Immature granulocytes (Bld) [#/Vol] 0.03 10*3/uL Normal <0.10 [facility] Comment on above: Order Comment: Speci men Type: BLOOD SPECIMEN Ordering Facility: [facility] Address: [address] [place] [address] Performed By: #### T SPN #### [facility] CLIA [id number] [address] [place] [address] [place] Immature granulocytes/100 WBC (Bld) 0.3 % Normal [facility] Comment on above: Order Comment: Speci men Type: BLOOD SPECIMEN Ordering Facility: [facility] Address: [address] [place] [address] Performed By: #### T SPN #### [facility] CLIA [id number] [address] [place] [address] [place] Lymphocytes (Bld) [#/Vol] 1.19 10*3/uL Normal 1.00-4.00 [facility] Comment on above: Order Comment: Speci men Type: BLOOD SPECIMEN Ordering Facility: [facility] Address: [address] [place] [address] Performed By: #### T SPN #### [facility] CLIA [id number] [address] [place] [address] [place] Lymphocytes/100 WBC (Bld) 13.7 % Normal [facility] Comment on above: Order Comment: Speci men Type: BLOOD SPECIMEN Ordering Facility: [facility] Address: [address] [place] [address] Performed By: #### T SPN #### [facility] CLIA [id number] [address] [place] [address] [place] MCH (RBC) [Entitic mass] 30.1 pg Normal 26.0-34.0 [facility] Comment on above: Order Comment: Speci men Type: BLOOD SPECIMEN Ordering Facility: [facility] Address: [address] [place] [address] Performed By: #### T SPN #### [facility] CLIA [id number] [address] [id number] [address] [place] MCHC (RBC) [Mass/Vol] 34.4 g/dL Normal 30.5-36.0 [facility] Comment on above: Order Comment: Speci men Type: BLOOD SPECIMEN Ordering Facility: [facility] Address: [address] [place] [address] Performed By: #### T SPN #### [facility] CLIA [id number] [address] [place] [address] [place] MCV (RBC) [Entitic vol] 87.4 fL Normal 80.0-100.0 [facility] Comment on above: Order Comment: Speci men Type: BLOOD SPECIMEN Ordering Facility: [facility] Address: [address] [place] [address] Performed By: #### T SPN #### [facility] CLIA [id number] [address] [place] [address] [place] Monocytes (Bld) [#/Vol] 0.48 10*3/uL Normal <0.87 [facility] Comment on above: Order Comment: Speci men Type: BLOOD SPECIMEN Ordering Facility: [facility] Address: [address] [place] [address] Performed By: #### T SPN #### [facility] CLIA [id number] [address] [place] [address] [place] Monocytes/100 WBC (Bld) 5.5 % Normal [facility] Comment on above: Order Comment: Speci men Type: BLOOD SPECIMEN Ordering Facility: [facility] Address: [address] [place] [address] Performed By: #### T SPN #### [facility] CLIA [id number] [address] [place] [address] [place] Neutrophils (Bld) [#/Vol] 6.90 10*3/uL Normal 1.45-7.50 [facility] Comment on above: Order Comment: Speci men Type: BLOOD SPECIMEN Ordering Facility: [facility] Address: [address] [place] [address] Performed By: #### T SPN #### [facility] CLIA [id number] [address] [place] [address] [place] Neutrophils/100 WBC (Bld) 79.5 % Normal [facility] Comment on above: Order Comment: Speci men Type: BLOOD SPECIMEN Ordering Facility: [facility] Address: [address] [place] [address] Performed By: #### T SPN #### [facility] CLIA [id number] [address] [place] [address] [place] Nucleated RBC (Bld) [#/Vol] 10*3/uL Normal <0.01 [facility] Comment on above: Order Comment: Speci men Type: BLOOD SPECIMEN Ordering Facility: [facility] Address: [address] [place] [address] Performed By: #### T SPN #### [facility] CLIA [id number] [address] [place] [address] [place] Nucleated RBC/100 WBC (Bld) [Ratio] 0.0 /100 WBC Normal [facility] Comment on above: Order Comment: Speci men Type: BLOOD SPECIMEN Ordering Facility: [facility] Address: [address] [place] [address] Performed By: #### T SPN #### [facility] CLIA [id number] [address] [place] [address] [place] Platelet mean volume (Bld) [Entitic vol] 10.5 fL Normal 9.0-12.7 [facility] Comment on above: Order Comment: Speci men Type: BLOOD SPECIMEN Ordering Facility: [facility] Address: [address] [place] [address] Performed By: #### T SPN #### [facility] CLIA [id number] [address] [place] [address] [place] Platelets (Bld) [#/Vol] 177 10*3/uL Normal 150-400 [facility] Comment on above: Order Comment: Speci men Type: BLOOD SPECIMEN Ordering Facility: [facility] Address: [address] [place] [address] Performed By: #### T SPN #### [facility] CLIA [id number] [address] [place] [address] [place] RBC (Bld) [#/Vol] 4.12 10*6/uL Normal 3.90-5.20 [facility] Comment on above: Order Comment: Speci men Type: BLOOD SPECIMEN Ordering Facility: [facility] Address: [address] [place] [address] Performed By: #### T SPN #### [facility] CLIA [id number] [address] [place] [address] [place] WBC (Bld) [#/Vol] 8.69 10*3/uL Normal 3.70-11.00 [facility] Comment on above: Order Comment: Speci men Type: BLOOD SPECIMEN Ordering Facility: [facility] Address: [address] [place] [address] Performed By: #### T SPN #### [facility] CLIA [id number] [address] [place] [address] [place] Otis 08-18-2024 CAIT[place] Telephone (YANDY) RIP AMES ([id number]) 2000 F Date Time Provider Department 08/18/24 TARUN FISHER During your visit today, we recorded the following information about you: Chelly Magaña RN 08/18/2024 11:36 AM Signed 28w5d Saw EH today. She saw 1 hour glucose result was elevated on mychart. Discussed 3 hour GTT and scheduled lab appt. Can you file order to attach to that appt since CP is out of office the rest of the week? EBONI Prasad Emily, APRN.VIVIANE 08/18/2024 11:43 AM Signed Ordered Tarun Fisher APRN.Vera Louie RN 08/18/2024 12:00 PM Signed Linked to appointment. Vera Gramajo RN Allergies As of Date: 08/18/2024 Noted Allergy Reaction AMOXICILLIN 04/14/2005 8 - GI Upset Date Reviewed: 08/18/2024 Reviewed by: Tarun Fisher APRN.TRAFFIC ANALYST - Fully Assessed Reason for Visit: Results [95] Primary Visit Diagnosis:Elevated glucose tolerance test [R73.09] Order(s):GEST GLUC NEREIDA, 3-HR, 100 GM, FASTING [SQGTGST3] Order #: [id number] FUTURE Prescriptions as of 08/18/2024 - aspirin, enteric coated (ECOTRIN LOW STRENGTH) 81 mg EC tablet Take 1 tablet by mouth once daily. - PNV no.95/ferrous fum/folic ac ( ORAL) Take 1 tablet by mouth once daily. 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 08/23/2013 Late care affecting in third*05/17/2015 05/28/2017 High risk teen in third trimester [O0*05/17/2015 05/28/2017 History of vacuum extraction assisted delivery *03/28/2024 Supervision of high risk in third tri*03/28/2024 Nausea and vomiting in [O21.9] 03/28/2024 05/27/2024 headache in second trimester (HCC) [O*05/27/2024 07/20/2024 History of oligohydramnios [Z87.59] 08/18/2024 Elevated glucose tolerance test [R73.09] 08/18/2024 Encounter Status:Closed by VERA GRAMAJO on 08/18/24 Normal [facility] GESTATIONAL GLUCOSE SCREEN, 1-HOUR, 50 GRAM, NON-FASTINGon 08-18-2024 Glucose [Mass/Vol] 146 mg/dL High 74-134 [facility] Comment on above: Order Comment: Luisito rojas Type: BLOOD SPECIMEN Ordering Facility: [facility] Address: [address] [place] [address] Result Comment: [facility] Congress of Obstetricians and Gynecologists ([place]eth[place]/Aric) guidelines state a gestational diabetes mellitus positive screen is made, in women not previously diagnosed with overt diabetes, when the 1 hr plasma glucose level is equal to or above 140 mg/dL. [facility] [employer] [facility] recommends a 135 mg/dL cutoff. Performed By: #### T SPN #### [facility] CLIA [id number] [address] [place] [address] [place] Reagin and Treponema pallidu m IgG and IgM [Interp]on 08-18-2024 T. pallidum IgG+IgM IA Ql (S) Non-Reactive Normal Nonreactive [facility] Comment on above: Order Comment: Delanoi crystal Type: BLOOD SPECIMEN Ordering Facility: [facility] Address: [address] [place] [address] Performed By: #### 7 3752-8 #### [facility] CLIA [id number] [address] [place] [address] [place] Reagin+T pallidum IgG+IgM Se rPl-Impon 08-18-2024 Reagin and Treponema pallidum IgG and IgM [Interp] Cannot exclude recent Treponemal infection if specimen collected within 7-10 days after appearance of suspect lesions or 2-3 weeks after an exposure. Clinical correlation is required. Normal [facility] Comment on above: Order Comment: Luisito rojas Type: BLOOD SPECIMEN Ordering Facility: [facility] Address: [address] [place] [address] Performed By: #### 7 3752-8 #### [facility] CLIA [id number] [address] STATES OF [facility] Examination level ultrasound on 06-22-2024 Indication Standard anatomic survey Impression REMOTE READ The patient is referred for a standard anatomic survey. - Single, live, intrauterine . - biometry is consistent with the established gestational age. - No malformations were visualized on a complete standard anatomic survey. - The amniotic fluid volume is normal amount. - The placenta is anterior, fundal. - The Transabdominal cervical length measures 37.4 mm with no evidence of funneling or other dynamic changes. - Not all structural malformations can be detected by ultrasound examination. Recommendations Additional follow-up as clinically indicated. Maternal Assessment Height 163 cm Height (ft) 5 ft Height (in) 4 in Physical Exam Initial weight (lb) 118 lb Initial BMI 20.24 kg/m Method Transabdominal ultrasound examination. View: Adequate visualization Pina . Number of fetuses: 1 Dating LMP on: 01/30/2024 GA by LMP 20 w + 4 d FELICIA by LMP: 11/05/2024 GA by prior assessment 20 w + 4 d FELICIA by prior assessment: 11/05/2024 Ultrasound examination on: 06/22/2024 GA by U/S based upon: AC, BPD, Femur, HC GA by U/S 20 w + 2 d FELICIA by U/S: 11/07/2024 Assigned: based on stated FELICIA, selected on 06/22/2024 Assigned GA 20 w + 4 d Assigned FELICIA: 11/05/2024 General Evaluation Cardiac activity present. FHR 159 bpm. movements: present. Presentation: cephalic Placenta: Placental site: anterior, fundal Umbilical cord: Cord vessels: 3 vessel cord Amniotic fluid: Amount of AF: normal amount. MVP 4.7 cm Growth Overview Exam date GA BPD (mm) HC (mm) AC (mm) FL (mm) HL (mm) EFW (g) 06/22/2024 20w 4d 48.4 52% 180.4 46% 150.4 34% 31.1 30% 30.8 35% 329 20% Biometry Standard BPD 48.4 mm 20w 4d 52% Hadlock OFD 63.8 mm 20w 3d 63% Nicolaides HC 180.4 mm 20w 3d 46% Keeley Cerebellum tr 20.6 mm 19w 5d 36% Hill Nuchal fold 5.7 mm AC 150.4 mm 20w 2d 34% Hadlock Femur 31.1 mm 19w 6d 30% Keeley Humerus 30.8 mm 20w 1d 35% Keeley EFW 329 g 20w 0d 20% Hadlock EFW (lb) 0 lb EFW (oz) 12 oz EFW by: Hadlock (HC-AC-FL) Extended Professional Bondsman 7.4 mm CM 3.0 mm 2% Nicolaides Extremities / Bony Struc FL / HC 0.17 2% Hadlock Other Structures FHR 159 bpm Anatomy Cranium: normal Lateral ventricles: normal Choroid plexus: normal Midline falx: normal Cavum septi pellucidi: normal Cerebellum: normal Cisterna magna: normal Head / Neck Vermis: Normal but not required for a standard anatomy exam Neck: Normal but not required for a standard anatomy exam Nuchal fold: Normal but not required for a standard anatomy exam Lips: normal Profile: Normal but not required for a standard anatomy exam Nose: Normal but not required for a standard anatomy exam Face Maxilla: Normal but not required for a standard anatomy exam Mandible: Normal but not required for a standard anatomy exam Orbits: Normal but not required for a standard anatomy exam Lens: Normal but not required for a standard anatomy exam 4-chamber view: normal RVOT view: normal LVOT view: normal 3-vessel view: normal 5-rmgezp-qhpgxpq view: normal Heart / Thorax Situs: situs solitus (normal) Aortic arch view: Normal but not required for a standard anatomy exam SVC: Normal but not required for a standard anatomy exam IVC: Normal but not required for a standard anatomy exam Cardiac axis: normal Rt lung: Normal but not required for a standard anatomy exam Lt lung: Normal but not required for a standard anatomy exam Diaphragm: Normal but not required for a standard anatomy exam Cord insertion: normal Stomach: normal Kidneys: normal Bladder: normal Genitals: normal Abdomen Abdom. wall: normal Cervical spine: normal Thoracic spine: normal Lumbar spine: normal Sacral spine: normal Arms: normal Legs: normal Rt upper arm: normal Rt forearm: normal Rt hand: normal Rt fingers: normal Lt upper arm: normal Lt forearm: normal Lt hand: normal Lt fingers: normal Rt upper leg: normal Rt lower leg: normal Rt foot: normal Lt upper leg: normal Lt lower leg: normal Lt foot: normal sex: male Wants to know sex: yes Maternal Structures Uterus / Cervix Uterus: Visualized Cervix: Visualized Approach: Transabdominal Cervical length 37.4 mm Other: Patient declined transvaginal ultrasound for cervical length. Ovaries / Tubes / Adnexa Rt ovary: Visualized Lt ovary: Visualized Performed By: aNno Greene RDMS, RVT Read By: Ila Kramer M.D. MATERNAL MEDICINE [facility] Radiology Study observation (narrative) [facility] Examination level ultrasound on 05-03-2024 Indication First trimester anatomic survey Impression REMOTE READ The patient is referred for a first trimester anatomy scan including nuchal translucency measurement as clinically indicated. - Single, live, intrauterine . - [place] rump length measurement is consistent with the established gestational age. - A qualitative screen of the nuchal translucency and other anatomic structures was unremarkable on a complete first trimester anatomic assessment. - Not all structural malformations can be detected by ultrasound examination. Recommendations - An anatomic survey at 18-20 weeks is recommended given no identified risk factors. Maternal Assessment Height 163 cm Height (ft) 5 ft Height (in) 4 in Physical Exam Initial weight (lb) 118 lb Initial BMI 20.24 kg/m Method Transabdominal ultrasound examination Pina . Number of fetuses: 1 Dating LMP on: 01/30/2024 GA by LMP 13 w + 3 d FELICIA by LMP: 11/05/2024 GA by prior assessment 12 w + 3 d FELICIA by prior assessment: 11/12/2024 Ultrasound examination on: 05/03/2024 GA by U/S based upon: CRL GA by U/S 13 w + 3 d FELICIA by U/S: 11/05/2024 Assigned: based on the LMP, selected on 05/03/2024 Assigned GA 13 w + 3 d Assigned FELICIA: 11/05/2024 General Evaluation Cardiac activity present Placenta: anterior Cord vessels: 3 vessel cord Amniotic fluid: normal amount Biometry Standard FHR 164 bpm CRL 72.2 mm 13w 3d 44% Hadlock First Trimester Anatomy Calvarium: normal Falx cerebri: normal Choroid plexus: normal Profile: normal Nasal bone: normal Retronasal triangle: normal Maxilla: normal Mandible: normal Nuchal translucency: Unremarkable Situs: normal Cardiac position: normal Cardiac axis: normal 4-chamber view: normal 4-chamber view with color: normal 2-wufzhj-aaswugv view: normal Abdominal cord insertion: normal Stomach: normal Kidneys: normal Color doppler of renal vessels: normal Bladder: normal Color doppler of perivesical umbilical arteries: normal Vertebral alignment: normal Arms: normal Hands: normal Legs: normal Feet: normal Maternal Structures Uterus / Cervix Uterus: Visualized Ovaries / Tubes / Adnexa Rt ovary: Visualized Lt ovary: Visualized Performed By: Sada Germain RDMS Read By: Ila Kramer M.D. MATERNAL MEDICINE [facility] Radiology Study observation (narrative) [facility] [id number] PLUSon 04-29-2024 Cell-free DNA./Cell-free DNA.total Dosage of chromosome-specific cfDNA (cfDNA) [Molar fraction] 19% Normal [facility] Comment on above: Order Comment: Speci men Type: BLOOD SPECIMEN Ordering Facility: [facility] Address: [address] [place] [address] Performed By: #### T SPN #### [facility] CLIA [id number] [address] [place] [address] [place] Chr 13+18+21+X+Y aneuploidy Dosage of chromosome-specific cfDNA Ql (cfDNA) Negative Normal [facility] Comment on above: Order Comment: Speci men Type: BLOOD SPECIMEN Ordering Facility: [facility] Address: [address] [place] [address] Performed By: #### T SPN #### [facility] CLIA [id number] [address] [place] [address] [place] Chr 21 trisomy Dosage of chromosome-specific cfDNA Ql (cfDNA) Negative Normal [facility] Comment on above: Order Comment: Speci men Type: BLOOD SPECIMEN Ordering Facility: [facility] Address: [address] [place] [address] Performed By: #### T SPN #### [facility] CLIA [id number] [address] [place] [address] [place] Chr X and Y aneuploidy risk Sequencing Ql (cfDNA) [Interp] Not detected Normal [facility] Comment on above: Order Comment: Speci men Type: BLOOD SPECIMEN Ordering Facility: [facility] Address: [address] [place] [address] Result Comment: Not Detected Not Detected Performed By: #### T SPN #### [facility] CLIA [id number] [address] [place] [address] [place] Citation Anthony (Reference lab test) Comment Normal [facility] Comment on above: Order Comment: Speci men Type: BLOOD SPECIMEN Ordering Facility: [facility] Address: [address] [place] [address] Result Comment: 1. P chano ALMAGUER, et al. Kendra Med. 2012;14(3):296-305. 2. Sheba CALZADA, et al. Prenat Diag. 2013;33(6):591-597. 3. Gideon Ramos et al. Clin Chem. 2015 Apr;61(4):608-616. 4. Courtney ALMAGUER, et al. Kendra Med. 2011;13(11):913-920. 5. ACOG/[facility] Practice Bulletin No. 226, Dec 2019. Performed By: #### T SPN #### [facility] CLIA [id number] [address] [place] [address] [place] Gestational age Estimated from conception date Pina Normal [facility] Comment on above: Order Comment: Speci men Type: BLOOD SPECIMEN Ordering Facility: [facility] Address: [address] [place] [address] Performed By: #### T SPN #### [facility] CLIA [id number] [address] [place] [address] [place] GESTATIONALAGE AGE > OR = 9W Yes Normal [facility] Comment on above: Order Comment: Speci men Type: BLOOD SPECIMEN Ordering Facility: [facility] Address: [address] [place] [address] Performed By: #### T SPN #### [facility] CLIA [id number] [address] [place] [address] [place] Laboratory comment Anthony (Report) Comment Normal [facility] Comment on above: Order Comment: Luisito rojas Type: BLOOD SPECIMEN Ordering Facility: [facility] Address: [address] [place] [address] Result Comment: The MaterniT(R) 21 PLUS laboratory-developed test (LDT) analyzes circulating cell-free DNA from a maternal blood sample. This test is used for screening purposes and not diagnostic. Clinical correlation is recommended. Validation data on twin pregnancies is limited and the ability of this test to detect aneuploidy in higher multiple gestations has not yet been validated. Performed By: #### T SPN #### [facility] CLIA [id number] [address] [place] [address] OF [facility] youth ministry director name Nom (Provider) Comment Normal [facility] Comment on above: Order Comment: Luisito rojas Type: BLOOD SPECIMEN Ordering Facility: [facility] Address: [address] [place] [address] Result Comment: This specimen showed an expected representation of chromosome 21, 18 and 13 material. Clinical correlation is suggested. Comment Hamilton Prabhakar MD, PhD, Director, Grow Performed By: #### T SPN #### [facility] CLIA [id number] [address] [place] [address] [place] [facility] LIMITATIONS OF THE TEST Comment Normal [facility] Comment on above: Order Comment: Luisito rojas Type: BLOOD SPECIMEN Ordering Facility: [facility] Address: [address] [place] [address] Result Comment: Percy coffman the results of these tests are highly reliable, discordant results, including inaccurate sex prediction, may occur due to placental, maternal, or mosaicism or neoplasm; vanishing twin; prior maternal organ transplant; or other causes. These tests are screening tests and not diagnostic; they do not replace the accuracy and precision of diagnosis with CVS or amniocentesis. A patient with a positive test result should be referred for genetic counseling and offered invasive diagnosis for confirmation of test results.[5] The results of this testing, including the benefits and limitations, should be discussed with a qualified healthcare provider. management decisions, including termination of the , should not be based on the results of these tests alone. The healthcare provider is responsible for the use of this information in the management of their patient. Sex chromosomal aneuploidies are not reportable for known multiple gestations. A negative result does not ensure an unaffected nor does it exclude the possibility of other chromosomal abnormalities or defects which are not a part of these tests. An uninformative result may be reported, the causes of which may include, but are not limited to, insufficient sequencing coverage, noise or artifacts in the region, amplification or sequencing bias, or insufficient fraction. These tests are not intended to identify pregnancies at risk for neural tube defects or ventral wall defects. Testing for whole chromosome abnormalities (including sex chromosomes) and for subchromosomal abnormalities could lead to the potential discovery of both and maternal genomic abnormalities that could have major, minor, or no, clinical significance. Evaluating the significance of a positive or a non-reportable result may involve both invasive testing and additional studies on the mother. Such investigations may lead to a diagnosis of maternal chromosomal or subchromosomal abnormalities, which on occasion may be associated with benign or malignant maternal neoplasms. These tests may not accurately identify triploidy, balanced rearrangements, or the precise location of subchromosomal duplications or deletions; these may be detected by diagnosis with CVS or amniocentesis. The ability to report results may be impacted by maternal BMI, maternal weight, maternal systemic lupus erythematosus (SLE) and/or by certain pharmaceutical agents such as low molecular weight heparin (for example: Lovenox(R), Xaparin(R), Clexane(R) and Fragmin(R)). Performed By: #### T SPN #### [facility]LOOD [facility] CLIA [id number] [address] [place] [address] [place] Monosomy X risk Dosage of chromosome-specific cfDNA Ql (Plasma cell-free+WBC DNA) [Interp] Not detected Normal [facility] Comment on above: Order Comment: Speci men Type: BLOOD SPECIMEN Ordering Facility: [facility] Address: [address] [place] [address] Performed By: #### T SPN #### [facility]LOOD B[facility] CLIA [id number] [address] [place] [address] [place] NEGATIVE PREDICTIVE VALUE Note Normal [facility] Comment on above: Order Comment: Delanosofy rojas Type: BLOOD SPECIMEN Ordering Facility: [facility] Address: [address] [place] [address] Result Comment: The Negative Predictive Value (NPV) for trisomy 21, 18, and 13 is greater than 99%. The NPV for SCA and ESS cannot be calculated as SCA and ESS are only reported when an abnormality is detected. Performed By: #### T SPN #### [facility] BLOOD BANK [place] [id number] [address] [place] [address] [place] PERFORMANCE CHARACTERISTICS Note Normal [facility] Comment on above: Order Comment: Delanosofy [facility] Type: BLOOD SPECIMEN Ordering Facility: [facility] Address: [address] [place] [address] Result Comment: ! Sex ! Accuracy: 99.4% ! ! ! ! Region (associated syndrome) ! Est. Sens# ! Est. Spec ! ! ! ! Trisomy 21 (Down Syndrome) ! 99.1% ! 99.9% ! ! ! ! Trisomy 18 ([place] Syndrome) ! >99.9% ! 99.6% ! ! ! ! Trisomy 13 ([place] Syndrome) ! 91.7% ! 99.7% ! ! ! ! Sex Chromosome Aneuploidies## ! 96.2% ! 99.7% ! ! ! * As reported in [facility] database nstd37 [https://www.ncbi.nlm.nih.gov/dbvar/studies/nstd37/ ] # Estimated Sensitivity. Sensitivity estimated across the observed size distribution of each syndrome [per [employer] database nstd37] and across the range of fractions observed in routine clinical NIPT. Actual sensitivity can also be influenced by other factors such as the size of the event, total sequence counts, amplification bias, or sequence bias. ## Pina gestation only. Performed By: #### T SPN #### [facility] BLOOD BANK [place] [id number] [address] [place] [address] [place] POSITIVE PREDICTIVE VALUE N/A Normal [facility] Comment on above: Order Comment: Speci men Type: BLOOD SPECIMEN Ordering Facility: [facility] Address: [address] [place] [address] Performed By: #### T SPN #### [facility] BLOOD BANK CLIA [id number] [address] [place] [address] [place] Reference Lab Test Method Comment Normal [facility] Comment on above: Order Comment: Speci men Type: BLOOD SPECIMEN Ordering Facility: [facility] Address: [address] [place] [address] Result Comment: See Notes Circulating cell-free DNA was purified from the plasma component of maternal blood. The extracted DNA was then converted into a genomic DNA library for aneuploidy analysis of chromosomes 21, 18, and 13 via next generation sequencing.[1] Optional findings based on the test order include sex chromosome aneuploidy (SCA)[2], and enhanced sequencing series (ESS)[3], which will only be reported on as an additional finding when an abnormality is detected. SCA testing includes information on X and Y representation, while ESS testing includes deletions in selected regions (22q, 15q, 11q, 8q, 5p, 4p, 1p) and trisomy of chromosomes 16 and 22. Performed By: #### T SPN #### [facility]IN BLOOD BANK [facility] [id number] [address] [place] [address] [place] Service comment (Unsp spec) [Interp] Comment Normal [facility] Comment on above: Order Comment: Speci men Type: BLOOD SPECIMEN Ordering Facility: [facility] Address: [address] [place] [address] Result Comment: See Notes [employer] is a subsidiary of [employer], using the brand [employer]. This test was developed and its performance characteristics determined by [employer]. It has not been cleared or approved by the Food and Drug Administration. This laboratory is certified under the Clinical Laboratory Improvement Amendments (CLIA) as qualified to perform high complexity clinical laboratory testing and accredited by the College of [place] [employer] (CAP). If there is future clinical need for adding MaterniT GENOME testing, this specimen will be available until term. [facility] samples will not be retained beyond 60 days. [facility] patients will have to send a new sample for re-sequencing ([facility] Test Code: [id number]). Performed By: #### T SPN #### [facility] BLOOD BANK [facility] [id number] [address] [place] [address] [place] Sex Dosage of chromosome-specific cfDNA Nom (cfDNA) Comment Normal [facility] Comment on above: Order Comment: Speci men Type: BLOOD SPECIMEN Ordering Facility: [facility] Address: [address], [place] [address] Result Comment: Cons istent with Male Performed By: #### T SPN #### [facility]LOOD BANK CLIA [id number] [address] [place] [address] [place] Test performance information Anthony (Unsp spec) Comment Normal [facility] Comment on above: Order Comment: Speci men Type: BLOOD SPECIMEN Ordering Facility: [facility] Address: [address] [place] [address] Result Comment: The performance characteristics of the MaterniT(R) 21 PLUS laboratory-developed test (LDT) have been determined in a clinical validation study with women at increased risk for chromosomal aneuploidy.[1-4] Performed By: #### T SPN #### [facility] BLOOD BANK CLIA [id number] [address] [place] [address] [place] Trisomy 13 risk Dosage of chromosome-specific cfDNA Ql (cfDNA) [Interp] Negative Normal [facility] Comment on above: Order Comment: Speci men Type: BLOOD SPECIMEN Ordering Facility: [facility] Address: [address] [place] [address] Performed By: #### T SPN #### [facility] BLOOD BANK CLIA [id number] [address] [place] [address] [place] Trisomy 18 risk Dosage of chromosome-specific cfDNA Ql (Plasma cell-free+WBC DNA) [Interp] Negative Normal [facility] Comment on above: Order Comment: Speci men Type: BLOOD SPECIMEN Ordering Facility: [facility] Address: [address] [place] [address] Performed By: #### T SPN #### [facility] BLOOD B[facility] CLIA [id number] [address] [place] [address] [place] BACTERIAL CULTURE, URINEOrde red By: Jossue Ferris on 03-29-2024 Bacteria identified Cx Nom (U) <10,000 CFU/ml Normal urogenital alessandro [facility] BACTERIAL VAGINOSIS NAATon 0 03-29-2024 Interpretation and review of laboratory results Abnormal [facility] Lactobacillus crispatus+gasseri+jense mari + Gardnerella vaginalis + Atopobium vaginae rRNA OMAR+probe Ql (Vag fld) Detected Abnormal Not detected [facility] Bacteria identified Cx Nom ( U)Ordered By: Jossue Ferris on 03-29-2024 [facility] C. trachomatis+N. gonorrhoea e DNA OMAR+probe Ql (Unsp spec)on 03-29-2024 C. trachomatis rRNA OMAR+probe Ql (Unsp spec) Not detected Not detected [facility] Interpretation and review of laboratory results Normal [facility] N. gonorrhoeae rRNA OMAR+probe Ql (Unsp spec) Not detected Not detected [facility] This FDA-approved as say has been modified to accept rectal swabs self-collected in a healthcare setting. For self-collected rectal swabs, the test was developed and its performance characteristics determined by the [facility]'s [facility] [place] ([facility] It has not been cleared or approved by the FDA. [facility] is regulated under CLIA as qualified to perform high-complexity testing. This test is used for clinical purposes. It should not be regarded as investigational or for research. [facility] [place] NAATOrde red By: Jessie Perales on 03-29-2024 C. glabrata RNA OMAR+probe Ql (Vag fld) Not detected Not detected [facility] [place] sp DNA OMAR+probe Ql (Vag fld) Not detected Not detected [facility] Interpretation and review of laboratory results Normal [facility] T. vaginalis DNA OMAR+probe Ql (Unsp spec) Not detected Not detected [facility] POC SSN/SSBN [employer] OPERATOR ULTRASOUNDon 03-29-19 25 Indication Viability; confirm cardiac activity Impression Single intrauterine gestational sac, CRL indicates discrepancy from clinical dates, FELICIA 11/12/2024 based on today's ultrasound, FHR 180 bpm Recommendations Follow up for 1st Trimester Anatomy with Nuchal Translucency as clinically indicated if desired. Method Transabdominal and transvaginal ultrasound examination Pina . Number of embryos: 1 Dating LMP on: 01/30/2024 GA by LMP 8 w + 2 d FELICIA by LMP: 11/05/2024 Ultrasound examination on: 03/28/2024 GA by U/S based upon: CRL GA by U/S 7 w + 2 d FELICIA by U/S: 11/12/2024 Assigned: based on ultrasound (CRL), selected on 03/28/2024 Assigned GA 7 w + 2 d Assigned FELICIA: 11/12/2024 Biometry Standard FHR 180 bpm CRL 11.7 mm 7w 2d 95% [facility] Assessment Gestational sac: visualized Location: intrauterine Yolk sac: visualized Embryo: visualized CRL 11.7 mm 7w 2d 95% [place] Cardiac activity: present FHR 180 bpm General Evaluation Cardiac activity present. FHR 180 bpm Performed By: Cass Eid CNM Read By: Cass Eid CNM MATERNAL MEDICINE [facility] THYROID STIMULATING HORMONEo n 03-29-2024 TSH Qn 1.240 m[IU]/L [facility] Comment on above: If the patient is pr egnant, TSH reference range varies by gestational period: First Trimester (weeks 9-12): 0.180-2.990 mIU/L Second Trimester: 0.110-3.980 mIU/L Third Trimester: 0.480-4.710 mIU/L Sampson Cronin et al. A Practical Approach for the Verifications and Determination of Site- and Trimester-Specific Reference Intervals for Thyroid Function tests in . Thyroid, 2019:29:3:412-420. Pierre E, et al. 2017 Guidelines of the [place] Thy[employer] Association for the Diagnosis and Management of Thyroid Disease during and the . Thyroid, 2017:27:3:315-389. TSH Qnon 03-29-2024 Interpretation and review of laboratory results Normal [facility] BACTERIAL VAGINOSIS NAATon 0 03-28-2024 Lactobacillus crispatus+gasseri+jense mari + Gardnerella vaginalis + Atopobium vaginae rRNA OMAR+probe Ql (Vag fld) Detected Abnormal Not detected [facility] Comment on above: Order Comment: Speci men Type: FLUID SPECIMEN Ordering Facility: [facility] Address: [address] [place] [address] Performed By: #### L [id number] #### [facility] CLIA [id number] [address] [place] [address] [place] [address] [place] Bacteria Ur Culton 5 Bacteria identified Cx Nom (U) ORGANISM ID: 1 <10,000 CFU/ml Normal urogenital alessandro Normal [facility] Comment on above: Performed By: #### L [id number] #### [facility] CLIA [id number] [address] [place] [address] [place] C. trachomatis+N. gonorrhoea e DNA OMAR+probe Ql (Unsp spec)on 03-28-2024 C. trachomatis rRNA OMAR+probe Ql (Unsp spec) Not detected Normal Not detected [facility] Comment on above: Order Comment: Speci men Type: BLOOD SPECIMEN Ordering Facility: [facility] Address: [address] [place] [address] Performed By: #### T SPN #### [facility] BLOOD BANK CLIA [id number] [address] [place] [address] [place] N. gonorrhoeae rRNA OMAR+probe Ql (Unsp spec) Not detected Normal Not detected [facility] Comment on above: Order Comment: Speci men Type: BLOOD SPECIMEN Ordering Facility: [facility] Address: [address] [place] [address] Performed By: #### T SPN #### CC MAIN BLOOD BANK CLIA [id number] [address] [place] [address] [place]/TRICHOMONAS NAATon 0 03-28-2024 C. glabrata RNA OMAR+probe Ql (Vag fld) Not detected Normal Not detected [facility] Comment on above: Order Comment: Speci men Type: FLUID SPECIMEN Ordering Facility: [facility] Address: [address] [place] [address] Performed By: #### L [id number] #### [facility] CLIA [id number] [address] [place] [address] [place] sp DNA OMAR+probe Ql (Vag fld) Not detected Normal Not detected [facility] Comment on above: Order Comment: Speci men Type: FLUID SPECIMEN Ordering Facility: [facility] Address: [address] [place] [address] Performed By: #### L [id number] #### [facility] CLIA [id number] [address] [place] [address] [place] [facility] T. vaginalis DNA OMAR+probe Ql (Unsp spec) Not detected Normal Not detected [facility] Comment on above: Order Comment: Speci men Type: FLUID SPECIMEN Ordering Facility: [facility] Address: [address] [place] [address] Performed By: #### L [id number] #### [facility] CLIA [id number] [address] [place] [address] [place] CBC W Auto Differential pane l (Bld)on 03-28-2024 Basophils (Bld) [#/Vol] 0.05 10*3/uL Normal <0.11 [facility] Comment on above: Order Comment: Speci men Type: BLOOD SPECIMEN Ordering Facility: [facility] Address: [address] [place] [address] Performed By: #### T SPN #### [facility] BLOOD BANK CLIA [id number] [address] [place] [address] [place] Basophils/100 WBC (Bld) 0.5 % Normal [facility] Comment on above: Order Comment: Speci men Type: BLOOD SPECIMEN Ordering Facility: [facility] Address: [address] [place] [address] Performed By: #### T SPN #### [facility] BLOOD BANK CLIA [id number] [address] [place] [address] [place] Differential cell count method Nom (Bld) Auto Normal [facility] Comment on above: Order Comment: Speci men Type: BLOOD SPECIMEN Ordering Facility: [facility] Address: [address] [place] [address] Performed By: #### T SPN #### [facility] BLOOD BANK CLIA [id number] [address] [place] [address] [place] Eosinophils (Bld) [#/Vol] 0.06 10*3/uL Normal <0.46 [facility] Comment on above: Order Comment: Speci men Type: BLOOD SPECIMEN Ordering Facility: [facility] Address: [address] [place] [address] Performed By: #### T SPN #### [facility] BLOOD BANK CLIA [id number] [address] [place] [address] [place] Eosinophils/100 WBC (Bld) 0.6 % Normal [facility] Comment on above: Order Comment: Speci men Type: BLOOD SPECIMEN Ordering Facility: [facility] Address: [address] [place] [address] Performed By: #### T SPN #### [facility] BLOOD BANK CLIA [id number] [address] [place] [address] [place] Erythrocyte distribution width (RBC) [Ratio] 11.9 % Normal 11.5-15.0 [facility] Comment on above: Order Comment: Speci men Type: BLOOD SPECIMEN Ordering Facility: [facility] Address: [address] [place] [address] Performed By: #### T SPN #### [facility] BLOOD BANK CLIA [id number] [address] [place] [address] [place] Hematocrit (Bld) [Volume fraction] 41.4 % Normal 36.0-46.0 [facility] Comment on above: Order Comment: Speci men Type: BLOOD SPECIMEN Ordering Facility: [facility] Address: [address] [place] [id number] Performed By: #### T SPN #### [facility] CLIA [id number] [address] [place] [address] [place] Hemoglobin (Bld) [Mass/Vol] 14.4 g/dL Normal 11.5-15.5 [facility] Comment on above: Order Comment: Speci men Type: BLOOD SPECIMEN Ordering Facility: [facility] Address: [address] [place] [address] Performed By: #### T SPN #### [facility] CLIA [id number] [address] [place] [address] [place] Immature granulocytes (Bld) [#/Vol] 0.03 10*3/uL Normal <0.10 [facility] Comment on above: Order Comment: Speci men Type: BLOOD SPECIMEN Ordering Facility: [facility] Address: [address] [place] [address] Performed By: #### T SPN #### [facility] CLIA [id number] [address] [place] [address] [place] Immature granulocytes/100 WBC (Bld) 0.3 % Normal [facility] Comment on above: Order Comment: Speci men Type: BLOOD SPECIMEN Ordering Facility: [facility] Address: [address] [place] [address] Performed By: #### T SPN #### [facility] CLIA [id number] [address] [place] [address] [place] Lymphocytes (Bld) [#/Vol] 2.09 10*3/uL Normal 1.00-4.00 [facility] Comment on above: Order Comment: Speci men Type: BLOOD SPECIMEN Ordering Facility: [facility] Address: [address] [place] [address] Performed By: #### T SPN #### [facility] CLIA [id number] [address] [place] [address] [place] Lymphocytes/100 WBC (Bld) 21.8 % Normal [facility] Comment on above: Order Comment: Speci men Type: BLOOD SPECIMEN Ordering Facility: [facility] Address: [address] [place] [address] Performed By: #### T SPN #### [facility] CLIA [id number] [address] [place] [address] [place] MCH (RBC) [Entitic mass] 29.9 pg Normal 26.0-34.0 [facility] Comment on above: Order Comment: Speci men Type: BLOOD SPECIMEN Ordering Facility: [facility] Address: [address] [place] [address] Performed By: #### T SPN #### [facility] CLIA [id number] [address] [place] [address] [place] MCHC (RBC) [Mass/Vol] 34.8 g/dL Normal 30.5-36.0 [facility] Comment on above: Order Comment: Speci men Type: BLOOD SPECIMEN Ordering Facility: [facility] Address: [address] [place] [address] Performed By: #### T SPN #### [facility] CLIA [id number] [address] [place] [address] [place] MCV (RBC) [Entitic vol] 85.9 fL Normal 80.0-100.0 [facility] Comment on above: Order Comment: Speci men Type: BLOOD SPECIMEN Ordering Facility: [facility] Address: [address] [place] [address] Performed By: #### T SPN #### [facility] CLIA [id number] [address] [place] [address] [place] Monocytes (Bld) [#/Vol] 0.71 10*3/uL Normal <0.87 [facility] Comment on above: Order Comment: Speci men Type: BLOOD SPECIMEN Ordering Facility: [facility] Address: [address] [place] [address] Performed By: #### T SPN #### [facility] CLIA [id number] [address] [place] [address] [place] Monocytes/100 WBC (Bld) 7.4 % Normal [facility] Comment on above: Order Comment: Speci men Type: BLOOD SPECIMEN Ordering Facility: [facility] Address: [address] [place] [address] Performed By: #### T SPN #### [facility] CLIA [id number] [address] [place] [address] [place] Neutrophils (Bld) [#/Vol] 6.63 10*3/uL Normal 1.45-7.50 [facility] Comment on above: Order Comment: Speci men Type: BLOOD SPECIMEN Ordering Facility: [facility] Address: [address] [place] [address] Performed By: #### T SPN #### [facility] CLIA [id number] [address] [place] [address] [place] Neutrophils/100 WBC (Bld) 69.4 % Normal [facility] Comment on above: Order Comment: Speci men Type: BLOOD SPECIMEN Ordering Facility: [facility] Address: [address] [place] [address] Performed By: #### T SPN #### [facility] CLIA [id number] [address] [place] [address] [place] Nucleated RBC (Bld) [#/Vol] 10*3/uL Normal <0.01 [facility] Comment on above: Order Comment: Speci men Type: BLOOD SPECIMEN Ordering Facility: [facility] Address: [address] [place] [address] Performed By: #### T SPN #### [facility] CLIA [id number] [address] [place] [address] [place] Nucleated RBC/100 WBC (Bld) [Ratio] 0.0 /100 WBC Normal [facility] Comment on above: Order Comment: Speci men Type: BLOOD SPECIMEN Ordering Facility: [facility] Address: [address] [place] [address] Performed By: #### T SPN #### [facility] CLIA [id number] [address] [place] [address] [place] Platelet mean volume (Bld) [Entitic vol] 10.0 fL Normal 9.0-12.7 [facility] Comment on above: Order Comment: Speci men Type: BLOOD SPECIMEN Ordering Facility: [facility] Address: [address] [place] [address] Performed By: #### T SPN #### [facility] CLIA [id number] [address] [place] [address] [place] Platelets (Bld) [#/Vol] 314 10*3/uL Normal 150-400 [facility] Comment on above: Order Comment: Speci men Type: BLOOD SPECIMEN Ordering Facility: [facility] Address: [address] [place] [address] Performed By: #### T SPN #### [facility] CLIA [id number] [address] [place] [address] [place] RBC (Bld) [#/Vol] 4.82 10*6/uL Normal 3.90-5.20 [facility] Comment on above: Order Comment: Speci men Type: BLOOD SPECIMEN Ordering Facility: [facility] Address: [address] [place] [address] Performed By: #### T SPN #### [facility] CLIA [id number] [address] [place] [address] [place] WBC (Bld) [#/Vol] 9.57 10*3/uL Normal 3.70-11.00 [facility] Comment on above: Order Comment: Speci men Type: BLOOD SPECIMEN Ordering Facility: [facility] Address: [address] [place] [address] Performed By: #### T SPN #### [facility] CLIA [id number] [address] [place] [address] [place] HBV surface Ag Ql (S)on 03-10 Interpretation and review of laboratory results Normal [facility] HBV surface Ag Ser Qlon 03-10 HBV surface Ag Ql (S) Negative Normal Negative [facility] Comment on above: Order Comment: Speci men Type: FLUID SPECIMEN Ordering Facility: [facility] Address: [address] [place] [address] Performed By: #### L [id number] #### [facility] CLIA [id number] [address] [place] [address] [place] HCV Ab Ql (S)on 03-28-2024 Interpretation and review of laboratory results Normal [facility] HCV Ab Ser Qlon 03-28-2024 HCV Ab Ql (S) Negative Normal Negative [facility] Comment on above: Order Comment: Speci men Type: BLOOD SPECIMEN Ordering Facility: [facility] Address: [address] [place] [address] Result Comment: The result suggests no evidence of active infection with Hepatitis C virus. Should recent infection be suspected, repeat testing may be considered 4-6 weeks after this draw. Performed By: #### T SPN #### [facility] CLIA [id number] [address] [place] [address] [place] HEPATITIS B SURFACE ANTIGENo n 03-28-2024 HBV surface Ag Ql (S) Negative Negative [facility] HEPATITIS C ANTIBODY IA WITH CONFIRMATIONon 03-28-2024 HCV Ab Ql (S) Negative Negative [facility] Comment on above: The result suggests no evidence of active infection with Hepatitis C virus. Should recent infection be suspected, repeat testing may be considered 4-6 weeks after this draw. HIV 1+2 Ab IA Qlon HIV 1 and 2 Ab IA.rapid Nom (S/P/Bld) [facility] Comment on above: Test not indicated. HIV 1+2 Ab+HIV1 p24 Ag IA Ql Non-Reactive Nonreactive [facility] HIV immunoassay testing algorithm interpretation (S/P/Bld) [Interp] [facility] Comment on above: No evidence of HIV-1 or HIV-2 infection. Should recent infection be suspected, repeat testing may be considered 2-3 weeks after this draw. [place] Rev. Code 3701.243(E): This information has been disclosed to you from confidential records protected from disclosure by state law. You shall make no further disclosure of this information without the specific, written, and informed release of the individual to whom it pertains or as otherwise permitted by state law. A general authorization for the release of medical or other information is not sufficient for the purpose of the release of HIV test results or diagnoses. [facility] HIV 1 and 2 Ab IA.rapid Nom (S/P/Bld) Normal [facility] Comment on above: Order Comment: Speci men Type: FLUID SPECIMEN Ordering Facility: [facility] Address: [address] [place] [address] Result Comment: Test not indicated. Performed By: #### L [id number] #### [facility] CLIA [id number] [address] [place] [address] [place] HIV 1+2 Ab+HIV1 p24 Ag IA Ql Non-Reactive Normal Nonreactive [facility] Comment on above: Order Comment: Speci men Type: FLUID SPECIMEN Ordering Facility: [facility] Address: [address] [place] [address] Performed By: #### L [id number] #### [facility] CLIA [id number] [address] [place] [address] [place] HIV immunoassay testing algorithm interpretation (S/P/Bld) [Interp] Normal [facility] Comment on above: Order Comment: Speci men Type: FLUID SPECIMEN Ordering Facility: [facility] Address: [address] [place] [address] Result Comment: No e vidence of HIV-1 or HIV-2 infection. Should recent infection be suspected, repeat testing may be considered 2-3 weeks after this draw. [place] Rev. Code 3701.243(E): This information has been disclosed to you from confidential records protected from disclosure by state law. ???You shall make no further disclosure of this information without the specific, written, and informed release of the individual to whom it pertains or as otherwise permitted by state law. A general authorization for the release of medical or other information is not sufficient for the purpose of the release of HIV test results or diagnoses. Performed By: #### L [id number] #### [facility] CLIA [id number] [address] [place] [address] [place] HbA1c (Bld)on 03-28-2024 Average glucose Estimated from glycated hemoglobin (Bld) [Mass/Vol] 77 mg/dL [facility] Comment on above: eAG: (Estimated aver age glucose) is a calculated value from HgbA1c and is fuels sales representative of the average blood glucose level in the last 2-3 month period. HbA1c (Bld) [Mass fraction] 4.3 % 4.3 - 5.6 % [facility] Comment on above: [place] Diabetes As sociation guidelines indicate that patients with HgbA1c in the range 5.7-6.4% are at increased risk for development of diabetes, and intervention by lifestyle modification may be beneficial. HgbA1c greater or equal to 6.5% is considered diagnostic of diabetes. [facility] Average glucose Estimated from glycated hemoglobin (Bld) [Mass/Vol] 77 mg/dL Normal [facility] Comment on above: Order Comment: Luisito rojas Type: BLOOD SPECIMEN Ordering Facility: [facility] Address: [address] [place] [address] Result Comment: eAG: (Estimated average glucose) is a calculated value from HgbA1c and is fuels sales representative of the average blood glucose level in the last 2-3 month period. Performed By: #### T SPN #### [facility] CLIA [id number] [address] [place] [address] [place] HbA1c (Bld) [Mass fraction] 4.3 % Normal 4.3-5.6 [facility] Comment on above: Order Comment: Luisito rojas Type: BLOOD SPECIMEN Ordering Facility: [facility] Address: [address] [place] [address] Result Comment: [place] Diabetes Association guidelines indicate that patients with HgbA1c in the range 5.7-6.4% are at increased risk for development of diabetes, and intervention by lifestyle modification may be beneficial. HgbA1c greater or equal to 6.5% is considered diagnostic of diabetes. Performed By: #### T SPN #### [facility] CLIA [id number] [address] [place] [address] [place] PAP TESTon 03-28-2024 ADEQUACY Satisfactory for interpretation. Normal [facility] Comment on above: Order Comment: Luisito rojas Type: FLUID SPECIMEN Ordering Facility: [facility] Address: [address] [place] [address] Performed By: #### L [id number] #### [facility] CLIA [id number] [address] [place] [address] [place] CASE REPORT Normal [facility] Comment on above: Order Comment: Speci men Type: FLUID SPECIMEN Ordering Facility: [facility] Address: [address] [place] [address] Result Comment: Gyne cologic Cytology Report Case: [id number] Authorizing Provider: Cass Eid APRN.CNM Collected: 03/28/2024 04:18 PM Ordering Location: OB/Gynecology Received: 03/28/2024 04:43 PM First Screen: Charlie, Marva, CT, ASCP Specimen: Pap Test, ThinPrep, Cervix Performed By: #### L [id number] #### [facility] CLIA [id number] [address] [place] [address] [place] CLINICAL HISTORY, CYTOLOGY, CARGO SURVEYOR Routine Exam Normal [facility] Comment on above: Order Comment: Speci men Type: FLUID SPECIMEN Ordering Facility: [facility] Address: [address] [place] [address] Performed By: #### L [id number] #### [facility] CLIA [id number] [address] [place] [address] [place] CYTOLOGY PAP OTHER INTERPRETATION Predominance of coccobacilli consistent with shift in vaginal alessandro. Normal [facility] Comment on above: Order Comment: Speci men Type: FLUID SPECIMEN Ordering Facility: [facility] Address: [address] [place] [address] Performed By: #### L [id number] #### [facility] CLIA [id number] [address] [place] [address] [place] FINAL PERFORMING LAB Normal [facility] Comment on above: Order Comment: Speci men Type: FLUID SPECIMEN Ordering Facility: [facility] Address: [address] [place] [address] Result Comment: Tech nical component, crumb packer screening performed at [facility], [facility] [place] [id number] CLIA# [id number] Diagnostic interpretation performed at [facility], [address] [place], [place] [id number] CLIA# [id number] Ribbon Lap Machine Tender: Abhinav Muro M.D. Performed By: #### L [id number] #### [facility] CLIA [id number] [address] [place] [address] [place] INTERPRETATION, CYTOLOGY, CARGO SURVEYOR Normal [facility] Comment on above: Order Comment: Speci men Type: FLUID SPECIMEN Ordering Facility: [facility] Address: [address] [place] [address] Result Comment: Nega tive for intraepithelial lesion or malignancy. Performed By: #### L [id number] #### [facility] CLIA [id number] [address] [place] [address] [place] LMP 01/29/2024 Normal [facility] Comment on above: Order Comment: Speci men Type: FLUID SPECIMEN Ordering Facility: [facility] Address: [address] [place] [address] Performed By: #### L [id number] #### [facility] CLIA [id number] [address] [place] [address] [place] PAP DISCLAIMER COMMENT The Pap Smear is a screening test for cervical cancer. False negative results occur with all screening tests, emphasizing the need for rescreening at recommended intervals, and clinical correlation. Normal [facility] Comment on above: Order Comment: Speci men Type: FLUID SPECIMEN Ordering Facility: [facility] Address: [address] [place] [address] Performed By: #### L [id number] #### [facility] CLIA [id number] [address] [place] [address] [place] PAP INSTRUCTOR [employer]ASTEW[employer]ANT COMMENT This specimen has be en analyzed by the ThinPrep Imaging System, an automated imaging and review system, which assists the laboratory in evaluating cells on ThinPrep Pap tests. Following automated imaging, selected del rosario from every slide are reviewed by a crumb packer. Normal [facility] Comment on above: Order Comment: Speci crystal Type: FLUID SPECIMEN Ordering Facility: [facility] Address: [address] [place] [address] Performed By: #### L [id number] #### [facility] CLIA [id number] [address] [place] [address] [place] POC SSN/SSBN [employer] EQUIPMENT OPERATOR ULTRASOUNDon 03-28-19 Radiology Study observation (narrative) [facility] RUBELLA IGG ANTIBODYon 03-28 Interpretation and review of laboratory results Normal [facility] Rubella IgG, Qual Positive Positive [facility] Comment on above: The result suggests recent or past exposure to Rubella virus or history of Rubella vaccination. Positive result may also be seen due to presence of passively-transferred antibodies. Please correlate with patient's history. [facility] RUBELLA IGG AB, QUAL Positive Normal Positive [facility] Comment on above: Order Comment: Luisito rojas Type: FLUID SPECIMEN Ordering Facility: [facility] Address: [address] [place] [address] Result Comment: The result suggests recent or past exposure to Rubella virus or history of Rubella vaccination. Positive result may also be seen due to presence of passively-transferred antibodies. Please correlate with patient's history. Performed By: #### L [id number] #### [facility] CLIA [id number] [address] [place] [address] [place] Reagin and Treponema pallidu m IgG and IgM [Interp]on 03-28-2024 T. pallidum IgG+IgM IA Ql (S) Non-Reactive Nonreactive [facility] T. pallidum IgG+IgM IA Ql (S) Non-Reactive Normal Nonreactive [facility] Comment on above: Order Comment: Luisito rojas Type: FLUID SPECIMEN Ordering Facility: [facility] Address: [address] [place] [address] Performed By: #### L [id number] #### [facility] CLIA [id number] [address] [place] [address] [place] Reagin+T pallidum IgG+IgM Se rPl-Impon 03-28-2024 Reagin and Treponema pallidum IgG and IgM [Interp] Cannot exclude recent Treponemal infection if specimen collected within 7-10 days after appearance of suspect lesions or 2-3 weeks after an exposure. Clinical correlation is required. Normal [facility] Comment on above: Order Comment: Speci men Type: FLUID SPECIMEN Ordering Facility: [facility] Address: [address] [place] [address] Performed By: #### L [id number] #### [facility] CLIA [id number] [address] [place] [address] [place] SYPHILIS TREPONEMAL W/REFLEX on 03-28-2024 Reagin and Treponema pallidum IgG and IgM [Interp] Cannot exclude recent Treponemal infection if specimen collected within 7-10 days after appearance of suspect lesions or 2-3 weeks after an exposure. Clinical correlation is required. [facility] TSH SerPl-aCncon 03-28-2024 TSH Qn 1.240 m[IU]/L Normal 0.270-4.200 [facility] Comment on above: Order Comment: Speci men Type: BLOOD SPECIMEN Ordering Facility: [facility] Address: [address] [place] [address] Result Comment: If t he patient is , TSH reference range varies by gestational period: First Trimester (weeks 9-12): 0.180-2.990 mIU/L Second Trimester: 0.110-3.980 mIU/L Third Trimester: 0.480-4.710 mIU/L Sampson Cronin et al. A Practical Approach for the Verifications and Determination of Site- and Trimester-Specific Reference Intervals for Thyroid Function tests in . Thyroid, 2019:29:3:412-420. Pierre E, et al. 2017 Guidelines of the [place] Thyroid Association for the Diagnosis and Management of Thyroid Disease during and the . Thyroid, 2017:27:3:315-389. Performed By: #### T SPN #### [facility] CLIA [id number] [address] [place] [address] [place] TYPE + SCREEN PRENATALon ABO O Normal [facility] Comment on above: Order Comment: Speci men Type: BLOOD SPECIMEN Ordering Facility: [facility] Address: [address] [place] [address] Performed By: #### T SPN #### [facility] CLIA [id number] [address] [place] [address] [place] Rh Nom (Bld) Positive Normal [facility] Comment on above: Order Comment: Speci men Type: BLOOD SPECIMEN Ordering Facility: [facility] Address: [address] [place] [address] Performed By: #### T SPN #### [facility] CLIA [id number] [address] [place] [address] [place] TYPE AND SCREEN EXPIRATION 03/31/2024 23:59 Normal [facility] Comment on above: Order Comment: Speci men Type: BLOOD SPECIMEN Ordering Facility: [facility] Address: [address] [place] [address] Performed By: #### T SPN #### [facility] CLIA [id number] [address] [place] [address] [place] ABO group Nom (Bld) O [facility] Blood group antibody screen Ql Negative [facility] Rh Nom (Bld) Positive [facility] Type and Screen Expiration 03/31/2024 23:59 [facility] 36on 03-21-2024 36 S: pt significant ot her (S/O) calling [facility] with appt request B: LMP 01/30 [...] at [facility]. R: RN looked at both [place] and [facility] appts and unable to find any IPV or SIGN ARTIST sooner than 03/28, RN advised pt S/O to contact her previous office at [facility] in the morning to see if there are any cancellations, pt S/O voiced understanding. Reason for Disposition Protocols used: Menstrual Period - Missed or [id number] Normal [facility] CBC W Auto Differential pane l (Bld)on 03-18-2024 Basophils (Bld) [#/Vol] 0.1 10*3/uL 0.0 - 0.2 10*3/uL [facility] Basophils/100 WBC (Bld) 0.5 % 0.0 - 2.0 % [facility] Eosinophils (Bld) [#/Vol] 0.1 10*3/uL 0.0 - 0.5 10*3/uL [facility] Eosinophils/100 WBC (Bld) 0.8 % 0.0 - 6.0 % [facility] Erythrocyte distribution width (RBC) [Ratio] 12 % 11.5 - 15.0 % [facility] Hematocrit (Bld) [Volume fraction] 39.4 % 35.0 - 47.0 % [facility] Hemoglobin (Bld) [Mass/Vol] 13.8 g/dL 11.7 - 16.0 g/dL [facility] Immature granulocytes (Bld) [#/Vol] 0 10*3/uL NINF - 0.1 10*3/uL [facility] Immature granulocytes/100 WBC (Bld) 0.4 % 0.0 - 2.0 % [facility] Interpretation and review of laboratory results Normal [facility] Lymphocytes (Bld) [#/Vol] 1.9 10*3/uL 1.0 - 4.3 10*3/uL [facility] Lymphocytes/100 WBC (Bld) 19 % 15.0 - 45.0 % [facility] MCH (RBC) [Entitic mass] 30.7 pg 26.0 - 34.0 pg [facility] MCHC (RBC) [Mass/Vol] 35 % 30.5 - 36.0 % [facility] MCV (RBC) [Entitic vol] 87.8 fL 77.0 - 99.0 fL [facility] Monocytes (Bld) [#/Vol] 0.8 10*3/uL 0.0 - 0.9 10*3/uL [facility] Monocytes/100 WBC (Bld) 7.6 % 5.0 - 13.0 % [facility] Neutrophils (Bld) [#/Vol] 7.1 10*3/uL 1.8 - 7.5 10*3/uL [facility] Neutrophils/100 WBC (Bld) 71.7 % 38.0 - 82.0 % [facility] Nucleated RBC/100 WBC (Bld) [Ratio] 0 % [facility] Platelet mean volume (Bld) [Entitic vol] 10.1 fL 9.0 - 12.7 fL [facility] Platelets (Bld) [#/Vol] 254 10*3/uL 140 - 440 10*3/uL [facility] RBC (Bld) [#/Vol] 4.49 10*6/uL 3.80 - 5.2 0 10*6/uL [facility] WBC (Bld) [#/Vol] 9.8 10*3/uL 3.6 - 10.7 10*3/uL [facility] CBC WITH AUTO DIFFERENTIALon 03-18-2024 Basophils (Bld) [#/Vol] 0.1 10*3/uL Normal 0.0-0.2 [facility] Comment on above: Performed By: #### L [id number] #### Principal Technical Writer: SMOOTH RAMOS ([id number]) [facility] ([facility]) [address] Basophils/100 WBC (Bld) 0.5 % Normal 0.0-2.0 [facility] Comment on above: Performed By: #### L [id number] #### Principal Technical Writer: SMOOTH RAMOS ([id number]) [facility] ([facility]) [address] Eosinophils (Bld) [#/Vol] 0.1 10*3/uL Normal 0.0-0.5 [facility] Comment on above: Performed By: #### L [id number] #### Principal Technical Writer: SMOOTH RAMOS ([id number]) [facility] [place] ([facility] [address] Eosinophils/100 WBC (Bld) 0.8 % Normal 0.0-6.0 [facility] Comment on above: Performed By: #### L [id number] #### Principal Technical Writer: SMOOTH RAMOS ([id number]) [facility] [place] ([facility]) [address] Erythrocyte distribution width (RBC) [Ratio] 12.0 % Normal 11.5-15.0 [facility] Comment on above: Performed By: #### L [id number] #### Principal Technical Writer: SMOOTH RAMOS ([id number]) [facility] [address] Hematocrit (Bld) [Volume fraction] 39.4 % Normal 35.0-47.0 [facility] Comment on above: Performed By: #### L [id number] #### Principal Technical Writer: SMOOTH RAMOS ([id number]) [facility] [address] Hemoglobin (Bld) [Mass/Vol] 13.8 g/dL Normal 11.7-16.0 [facility] Comment on above: Performed By: #### L [id number] #### Principal Technical Writer: SMOOTH RAMOS ([id number]) [facility] [address] IMMATURE GRANS % 0.4 % Normal 0.0-2.0 [facility] Comment on above: Performed By: #### L [id number] #### Principal Technical Writer: SMOOTH RAMOS ([id number]) [facility] ([facility]) [address] IMMATURE GRANS ABSOLUTE 0.0 10*3/uL Normal <0.1 [facility] Comment on above: Performed By: #### L [id number] #### Principal Technical Writer: SMOOTH RAMOS ([id number]) [facility] [place] ([facility]) [address] Lymphocytes (Bld) [#/Vol] 1.9 10*3/uL Normal 1.0-4.3 [facility] Comment on above: Performed By: #### L [id number] #### Principal Technical Writer: SMOOTH RAMOS ([id number]) [facility] ([facility] [address] Lymphocytes/100 WBC (Bld) 19.0 % Normal 15.0-45.0 [facility] Comment on above: Performed By: #### L [id number] #### Principal Technical Writer: SMOOTH RAMOS ([id number]) [facility] ([facility] [address] MCH (RBC) [Entitic mass] 30.7 pg Normal 26.0-34.0 [facility] Comment on above: Performed By: #### L [id number] #### Principal Technical Writer: SMOOTH RAMOS ([id number]) [facility] [address] MCHC 35.0 % Normal 30.5-36.0 [facility] Comment on above: Performed By: #### L [id number] #### Principal Technical Writer: SMOOTH RAMOS ([id number]) [facility] ([facility]) [address] MCV (RBC) [Entitic vol] 87.8 fL Normal 77.0-99.0 [facility] Comment on above: Performed By: #### L [id number] #### Principal Technical Writer: SMOOTH RAMOS ([id number]) [facility] [address] Monocytes (Bld) [#/Vol] 0.8 10*3/uL Normal 0.0-0.9 [facility] Comment on above: Performed By: #### L [id number] #### Principal Technical Writer: SMOOTH RAMOS ([id number]) [facility] [place] ([facility]HL[facility]) [address] [place] [address] [place] Monocytes/100 WBC (Bld) 7.6 % Normal 5.0-13.0 [facility] Comment on above: Performed By: #### L [id number] #### Principal Technical Writer: SMOOTH RAMOS ([id number]) [facility] [place] ([facility]) [address] NEUTROPHILS ABSOLUTE 7.1 10*3/uL Normal 1.8-7.5 [facility] Comment on above: Performed By: #### L [id number] #### Principal Technical Writer: SMOOTH RAMOS ([id number]) [facility] [place] ([facility]) [address] Neutrophils/100 WBC (Bld) 71.7 % Normal 38.0-82.0 [facility] Comment on above: Performed By: #### L [id number] #### Principal Technical Writer: SMOOTH RAMOS ([id number]) [facility] [place] ([facility]) [address] NRBC 0.0 /100 WBCs Normal 0.0-2.0 [facility] Comment on above: Performed By: #### L [id number] #### Principal Technical Writer: SMOOTH RAMOS ([id number]) [facility] [place] ([facility]) [address] [place] [address] [place] Platelet mean volume (Bld) [Entitic vol] 10.1 fL Normal 9.0-12.7 [facility] Comment on above: Performed By: #### L [id number] #### Principal Technical Writer: SMOOTH RAMOS ([id number]) [facility] [place] ([facility]) [address] [place] [address] [place] Platelets (Bld) [#/Vol] 254 10*3/uL Normal 140-440 [facility] Comment on above: Performed By: #### L [id number] #### Principal Technical Writer: SMOOTH RAMOS ([id number]) [facility] [place] ([facility]) [address] RBC (Bld) [#/Vol] 4.49 10*6/uL Normal 3.80-5.20 [facility] Comment on above: Performed By: #### L [id number] #### Principal Technical Writer: SMOOTH RAMOS ([id number]) [facility] ([facility]) [address] WBC (Bld) [#/Vol] 9.8 10*3/uL Normal 3.6-10.7 [facility] Comment on above: Performed By: #### L [id number] #### Principal Technical Writer: SMOOTH RAMOS ([id number]) [facility] ([facility]) [address] CNPNon 03-18-2024 CNPN Telephone (OBGYWM) RIP AMES ([id number]) 2000 F Date Time Provider Department 03/18/24 YAKELIN DOUGHERTY During your visit today, we recorded the following information about you: Chelly Magaña RN 03/18/2024 8:20 AM Signed LMP 01/29/25 - 6w6d Calling c/o nausea. [...] 2019. NOB scheduled for 03/28/24. Please advise. EBONI Prasad Courtney, APRN.CN 03/18/2024 11:52 AM Signed Patient will need to give time for the vitamin B and Unisom to get into system. She will need seen in ED prior to NOB if unable to keep food or liquids down for 24 hours. Yakelin Dougherty APRN.Chelsie Santos RN 03/18/2024 12:18 PM Signed Pt notified and voiced understanding. Chelsie Granger RN Allergies As of Date: 03/18/2024 Noted Allergy Reaction AMOXICILLIN 04/14/2005 8 - GI Upset Date Reviewed: 07/08/2018 Reviewed by: Sarah Marie ([facility]) - Fully Assessed Reason for Visit: Nausea [70] Prescriptions as of 03/18/2024 - L.acidoph-B.lactis-B.lo ngum (FLORAJEN3) 460 mg (7.5-6- 1.5 bill. cell) cap Take 1 capsule by mouth once daily. - esomeprazole (NEXIUM) 20 mg capsule Take 1 capsule by mouth daily before breakfast for 14 days. 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] 02/03/2012 08/23/2013 Late care affecting in third*05/17/2015 05/28/2017 High risk teen in third trimester [O0*05/17/2015 05/28/2017 Encounter Status:Closed by YAKELIN DOUGHERTY on 03/18/24 Normal [facility] METABOLIC PANE Juan 03-18-2024 Albumin [Mass/Vol] 3.9 g/dL Normal 3.5-5.0 [facility] Comment on above: Performed By: #### L [id number], LAB17 #### Principal Technical Writer: SMOOTH RAMOS ([id number]) [facility] ([facility] [address] [place], [place] [id number] [place] [address] ALP [Catalytic activity/Vol] 47 U/L Normal 40-150 [facility] Comment on above: Performed By: #### L [id number], LAB17 #### Principal Technical Writer: SMOOTH RAMOS ([id number]) [facility] ([facility]) [address] [place] [address] [place] ALT [Catalytic activity/Vol] 9 U/L Normal <30 [facility] Comment on above: Performed By: #### L AB143, LAB17 #### Principal Technical Writer: SMOOTH RAMOS ([id number]) [facility] ([facility]) [address] Anion gap [Moles/Vol] 10 mmol/L Normal 3-13 [facility] Comment on above: Performed By: #### L AB143, LAB17 #### Principal Technical Writer: SMOOTH RAMOS ([id number]) [facility] ([facility]) [address] AST [Catalytic activity/Vol] 16 U/L Normal <34 [facility] Comment on above: Performed By: #### L AB143, LAB17 #### Principal Technical Writer: SMOOTH RAMOS ([id number]) [facility] ([facility]) [address] Bilirubin [Mass/Vol] 0.9 mg/dL Normal <1.2 [facility] Comment on above: Performed By: #### L AB143, LAB17 #### Principal Technical Writer: SMOOTH RAMOS ([id number]) [facility] ([facility]) [address] [place] [address] [place] Calcium [Mass/Vol] 9.1 mg/dL Normal 8.4-10.2 [facility] Comment on above: Performed By: #### L [id number], LAB17 #### Principal Technical Writer: SMOOTH RAMOS ([id number]) [facility] ([facility]) [address] [place] [address] [place] Chloride [Moles/Vol] 106 mmol/L Normal 98-107 [facility] Comment on above: Performed By: #### L AB143, LAB17 #### Principal Technical Writer: SMOOTH RAMOS ([id number]) [facility] ([facility]) [address] [place] [address] [place] CO2 [Moles/Vol] 20 mmol/L Low 22-29 [facility] Comment on above: Performed By: #### L AB143, LAB17 #### Principal Technical Writer: SMOOTH RAMOS ([id number]) [facility] [address] Creatinine [Mass/Vol] 0.59 mg/dL Normal 0.57-1.11 [facility] Comment on above: Performed By: #### L AB143, LAB17 #### Principal Technical Writer: SMOOTH RAMOS ([id number]) [facility] [address] GLOMERULAR FILTRATION RATE ML/MIN/1.73 SQ M.PREDICTED >90.0 Normal >60.0 [facility] Comment on above: Result Comment: Calc ulation based on the Chronic Kidney Disease Epidemiology Collaboration (CKD-EPI) equation refit without adjustment for race Performed By: #### L ANJALI, LAB17 #### Principal Technical Writer: SMOOTH RAMOS ([id number]) [facility] [address] Glucose [Mass/Vol] 84 mg/dL Normal 74-100 [facility] Comment on above: Performed By: #### L 143, LAB17 #### Principal Technical Writer: SMOOTH RAMOS ([id number]) [facility] ([facility]) [address] Potassium [Moles/Vol] 3.7 mmol/L Normal 3.5-5.1 [facility] Comment on above: Result Comment: [facility] potassium values may be up to 0.5 mmol/L lower than serum values. Performed By: #### L AB143, LAB17 #### Principal Technical Writer: SMOOTH RAMOS ([id number]) [facility] [address] Protein [Mass/Vol] 6.6 g/dL Normal 6.4-8.3 [facility] Comment on above: Performed By: #### L AB143, LAB17 #### Principal Technical Writer: SMOOTHCADEN RAMOS ([id number]) [facility] ([facility]) [address] Sodium [Moles/Vol] 136 mmol/L Normal 136-145 [facility] Comment on above: Performed By: #### L AB143, LAB17 #### Principal Technical Writer: SMOOTH RAMOS ([id number]) [facility] ([facility]) [address] Urea nitrogen [Mass/Vol] 9 mg/dL Normal 8-21 [facility] Comment on above: Performed By: #### L AB143, LAB17 #### Principal Technical Writer: SMOOTH RAMOS ([id number]) [facility] ([facility]) [address] Comprehensive metabolic 2000 panelon 03-18-2024 Albumin [Mass/Vol] 3.9 g/dL 3.5 - 5.0 g/dL [facility] ALP [Catalytic activity/Vol] 47 U/L 40 - 150 U/L [facility] ALT [Catalytic activity/Vol] 9 U/L [facility] - 30 U/L [facility] Anion gap [Moles/Vol] 10 mmol/L 3 - 13 mmol/L [facility] AST [Catalytic activity/Vol] 16 U/L [facility] - 34 U/L [facility] Bilirubin [Mass/Vol] 0.9 mg/dL [facility] - 1.2 mg/dL [facility] Calcium [Mass/Vol] 9.1 mg/dL 8.4 - 10. 2 mg/dL [facility] Chloride [Moles/Vol] 106 mmol/L 98 - 10 7 mmol/L [facility] CO2 [Moles/Vol] 20 mmol/L Low 22 - 29 mmol/L [facility] Creatinine [Mass/Vol] 0.59 mg/dL 0.57 - 1.11 mg/dL [facility] GFR/1.73 sq M.predicted (S/P/Bld) [Vol rate/Area] - PINF [facility] Comment on above: Calculation based on the Chronic Kidney Disease Epidemiology Collaboration (CKD-EPI) equation refit without adjustment for race Glucose [Mass/Vol] 84 mg/dL 74 - 100 mg/dL [facility] Interpretation and review of laboratory results Abnormal [facility] Potassium [Moles/Vol] 3.7 mmol/L 3.5 - 5.1 mmol/L [facility] Comment on above: Plasma potassium drew ues may be up to 0.5 mmol/L lower than serum values. Protein [Mass/Vol] 6.6 g/dL 6.4 - 8.3 g/dL [facility] Sodium [Moles/Vol] 136 mmol/L 136 - 145 mmol/L [facility] Urea nitrogen [Mass/Vol] 9 mg/dL 8 - 21 mg/dL [facility] ED Nursing Noteon 03-18-2024 ED Nursing Note PT to ED ambulatory through triage due to nausea with dry heaving. PT states has been in bed for about a week. PT states she has been taking B6 and Unisom without relief. PT states she has called OB for zofran but they are unable to see her yet. Normal [facility] ED Provider Noteon ED Provider Note EMERGENCY DEPARTMENT ENCOUNTER Pt Name: Rip [...] currently G2, P1, with follow-up with an [employer]ENTICE on the of this month, but has been unable to see them. Called them today because she is been having nausea vomiting all week in the morning, and then laying around in bed all day because she has been feeling well. They told her that they were unable to send her any other medications but she has been seen by their office since 2018, recommended she come to the ER for [...] [03/18/242035] Temp Heart Rate Resp BP 36.4 ?C (97.6 ?F) 86 16 (!) 142/79 SpO2 Temp Source [...] Basophils Relative 0.5 Immature Grans % 0.4 (more content not included)... Normal [facility] HCG QUANTITATIVE BLOODon HCG QUANTITATIVE 69664.0 mIU/mL Normal Females <5 [facility] Comment on above: Result Comment: TOPHER Lynn COMMENTS: Values in should double every 2 to [...] , ectopic , gestosis or intrauterine . Hnah- and postmenopausal females may have detectable hCG [...] or monitor tumors or gestational trophoblastic disease. Performed By: #### L AB143, LAB17 #### Principal Technical Writer: SMOOTH RAMOS ([id number]) [facility] ([facility]) [address] Laboratory - Chemistry and C hemistry - challengeon 03-18-2024 [place] [address] m[IU]/mL Female s <5 mIU/mL [facility] No Panel Informationon 03-18 Values in should double every 2 to [...] or monitor tumors or gestational trophoblastic disease. [facility] Chlam/GC-DNA Amplifiedon Chlam/GC-DNA Amplified [facility] trachomat[facility] DNA NOT DETECTEDNeisseria gonorrhoeae DNA NOT DETECTEDReference range NOT DETECTEDMethod: Strand Displacement Amplification-BD ProbeTec AssayComment: A negative result does not precludeC.trachomatis or N. gonorrhoeae infection becauseresults are dependent on adequate specimen collection,absence of inhibitors, and sufficient DNA to be detected. Normal [facility] Comment on above: Performed By: #### C TGCA ####[facility] [place] [address] ED NOTEon 12-22-2017 ED NOTE HNO ID: [id number] Author: Kristie (Rn) EBONI Urbina Service: Emergency Medicine Author Type: Registered Nurse Type: ED Notes Filed: 12/22/2017 12:31 AM Note Text: No acute distress noted following antibiotic; Vital signs stable Normal [facility] ED NOTE HNO ID: [id number] Author: Tulio DeyRn) EBONI Paiz Service: Emergency Medicine Author Type: Registered Nurse Type: ED Notes Filed: 12/21/2017 11:11 PM Note Text: Report from EBONI Holbrook. Awaiting results AND pt disposition Normal [facility] ED PROV NOTEon 12-22-2017 Protein mass conc HNO ID: [id number]: Nivia Bess) EVELYN Higginservice: Emergency MedicineAuthor Type: Physician AssistantType: ED Provider NotesFiled: 12/22/2017 12:22 AMNote Text:ED Provider NotePatient Name: Rip AmesMRN: [id number] DATE: 12/21/17HistoryPatient presents with:Dysuria: pt states lower abd pain with pressure, and burning and painwhile she urinates x3 days; pt states she recently got a Merena placed andis unsure if this has something to do with it.HPI17y F with Hx of mirena insertion on 05/28/17 c/o burning dysuria x3d. Endorses frequency, but denies hematuria. Denies abdominal pain,fever, vomiting, CP, SOB. Endorses a little dyspareunia that is new overthe last 3d. Requests STD testing, has had unprotected sex lately.Endorses milky white vaginal discharge that smells foul, maybe like fish.Child is 1y old. 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/2012 resolvedPAST SURGICAL HISTORYProcedure Laterality Date- NONEFAMILY HISTORYProblem Relation Age of Onset- Allergies Mother- None Other- Asthma SisterSocial HistorySocial History Main Topics- Smoking status: Never Smoker- Smokeless tobacco: Never Used- Alcohol use No- Drug use: No- Sexual activity: Not on fileALLERGIESAllergen Reactions- Amoxicillin GI UpsetReview of SystemsConstitutional: Negative.HENT: Negative.Eyes: Negative.Respiratory: Negative.Cardiovascular : Negative.Gastrointestin al: Negative.Endocrine: Negative.Genitourinary: See hpiMusculoskeletal: Negative.Skin: Negative.Neurological: Negative.Hematological: Negative.Physical ExamBP 145/82 Pulse 72 Temp (Src) 98.2 (Oral) Resp 18 Ht 5' 4 (1.63m) Wt 130 lb (59.0kg) SpO2 99% BMI 22.30 kg/(m2).Physical ExamConstitutional: She is oriented to person, place, and time. She appearswell-developed and well-nourished. She is active. Non-toxic appearance.She does not have a sickly appearance. She does not appear ill. Nodistress.HENT:Head: Normocephalic and atraumatic.Right Ear: External ear normal.Left Ear: External ear normal.Eyes: Conjunctivae and lids are normal. Right eye exhibits no discharge.Left eye exhibits no discharge. Right conjunctiva is not injected. Leftconjunctiva is not injected. No scleral icterus.Cardiovascular: Normal rate, regular rhythm and normal heart sounds. Examreveals no gallop and no friction rub.No murmur heard.Pulmonary/Chest: Effort normal and breath sounds normal. No accessorymuscle usage. No respiratory distress. She has no wheezes. She has norhonchi. She has no rales.Abdominal: Soft. Normal appearance. There is no tenderness.Genitourinar y: Pelvic exam was performed with patient supine. No labialfusion. There is no rash, tenderness, lesion or injury on the right labia.There is no rash, tenderness, lesion or injury on the left labia. Rightadnexum displays no mass. Left adnexum displays no mass. There istenderness in the vagina. No erythema or bleeding in the vagina. Noforeign body in the vagina. No signs of injury around the vagina. Vaginaldischarge (milky white) found.Genitourinary Comments: Bimanual exam painful for pt from start to finish.Unable to distinguish cervical motion tenderness or adnexal tendernessfrom general pain on exam.Neurological: She is alert and oriented to person, place, and time. GCSeye subscore is 4. GCS verbal subscore is 5. GCS motor subscore is 6.Skin: Skin is warm, dry and intact. Capillary refill takes less than 2seconds. No abrasion, no burn, no ecchymosis, no laceration, no lesion andno rash noted. No cyanosis or erythema. Nails show no clubbing.Psychiatric: She has a normal mood and affect. Her speech is normal andbehavior is normal.Nursing note and vitals reviewed.Diagnostic TestingED Labs Ordered and ReviewedURINALYSIS WITH MICROSCOPIC (AK,AV,EU,FV,HL,TIMA,MM,S P) - Abnormal; Notablefor the following: Result Value Ref Range Bilirubin, Urine see below (*) Negative Leukocytes Esterase MODERATE (*) Negative WBC, Urine 31.2 (*) 0.0 - 5.0 /hpf All other components within normal limitsHCG QUALITATIVE URINE (AK,AV,EU,FV,HL,TIMA,MM,S P) - Abnormal; Notable forthe following: Specific [place], Ur 1.031 (*) 1.005 - 1.030 All other components within normal limitsRAPID BACT VAGINOSIS (AK)TRICHOMONAS PREP (AK,AV,EU,FV,HL,TIMA,MM,S P)GC/CHLAMYDIA DNA DETECTION (AK,AV,EU,FV,HL,TIMA,MM,S P)ProceduresED Course / Clinical ImpressionED Course as of Dec 22hanh Higgins (Pa)'s DocumentationMon Dec 21 HCG Qualitative, Urine: [id number] Rapid Trichomonas Ag: see [id number] Rapid Bact.Vaginosis: see belowClinical Impressions as of Dec 22 21Urinary tract infection without hematuria, site unspecifiedBacterial vaginosisMDM / Disposition / PlanMDM1. UTI - Bactrim DS x 3d2. BV - Flagyl x 7d3. STD concern - Trich neg, treating empirically for G/C with 250mg IMrocephin and 1g azithromycin.Pt has listed amoxicillin allergy. She states she was very young when shehad the reaction to amoxicillin and isn't exactly sure what it was. Wehave gastric upset listed. This is likely an intolerance rather than atrue allergy. Given that the cross-over reactivity from amoxicillin tocephalosporins is now approximately 1%, and an injection is unlikely toresult in gastric upset, I feel comfortable giving her a rocephininjection today but pt was observed after the injection anyway for 30 minand did not have any adverse effects including but not limited to tongueswelling, throat closing, nausea, wheezing, SOB.Pt to f/u with women's clinic as she was very tender on bimanual exam.This may clear with Abx, but needs to be reassessed after courses arefinished.Pt also given contact info to [facility] to establish care.Pt discharged home in good condition, given ED return precautions. Ptexpresses understanding and is amenable to plan.The patient was DISCHARGED: Counseled patient regarding lab results ANDsuspected diagnosis AND need for follow-up. Discharged home with verbal andwritten instructions. They were instructed to return as needed forpersistent or worsening symptoms or any new concerns.Condition at time of disposition: stable and wellSIGNATURE: BREE Montez-CBhanh Ramos (Bree) BREE Higgins12/22/17 0022 Normal [facility] Rapid Bact.Vaginosison 12-22 Rapid Bact.Vaginosis see below Normal [facility] Comment on above: Result Comment: Posi tive for the presence of bacterial vaginosis. Performed By: #### R APBV ####[place] [address] Rapid Trichomonas Agon 12-22 Rapid Trichomonas Ag see below Normal [facility] Comment on above: Result Comment: No T richomonas antigen present or the antigen level is belowdetection limit of the assay (2500 organisms/mL). Performed By: #### R APTR ####[place] [address] ED NOTEon 12-21-2017 ED NOTE HNO ID: [id number] Author: Katie (Rn) EBONI Boyce Service: Emergency Medicine Author Type: Registered Nurse Type: ED Notes Filed: 12/21/2017 8:07 PM Note Text: Clean catch urine specimen obtained and sent. Normal [facility] ED Triage Noteon 12-21-2017 ED Triage Note HNO ID: [id number]: Srinath Cruz (Viviane) BabatundeService: Emergency MedicineAuthor Type: Nurse PractitionerType: ED Triage NotesFiled: 12/21/2017 8:14 PMNote Text:ED INTAKE NOTEPatient Name: Rip AmesMRN: [id number] Date: 12/21/17BRIEF HPI:Provider in triage.Patient is a 17-year-old female with 3 days duration of urinary tractinfection symptoms.Patient denies dizziness, chest pain, shortness of breath or difficultybreathing, abdominal pain nausea vomiting constipation or diarrhea.BRIEF EXAM:Awake and AlertRRRCTABAbd soft/NT/ND; no rebound/guardingMAEINTA KE WORKUP:UrinalysisPregna ncy TestSIGNATURE: Srinath Fine, CONCRETE MIXER OPERATOR.TRAFFIC ANALYST Normal [facility] Urinalysis Routineon 018 Bacteria LM.HPF #/area (Urine sed) NONE Normal None [facility] Comment on above: Performed By: #### U RIN2 ####[address] [address] Ep Cells Urine 3.8 /hpf Normal 0.0-5.0 [facility] Comment on above: Performed By: #### U RIN2 ####[address] [address] Hyaline Cast 0.4 /lpf Normal 0.0-1.0 [facility] Comment on above: Performed By: #### U RIN2 ####[address] [address] RBC,Urine 2.4 /hpf Normal 0.0-5.0 [facility] Comment on above: Performed By: #### U RIN2 ####[address] [address] WBC, Urine 31.2 /hpf High 0.0-5.0 [facility] Comment on above: Performed By: #### U RIN2 ####[place] [address] Appearance Nom (U) CLEAR Normal [facility] Comment on above: Performed By: #### U RIN2 ####[place] [address] Bilirubin Urine see below Abnormal Negative [facility] Comment on above: Result Comment: Dete cted (Unable to confirm). Performed By: #### U RIN2 ####[place] [address] Color Nom (U) YELLOW Normal [facility] Comment on above: Performed By: #### U RIN2 ####[place] [address] Glucose Ql (U) Negative Normal Negative [facility] Comment on above: Performed By: #### U RIN2 ####[place] [address] Hemoglobin,Urine Negative Normal Negative [facility] Comment on above: Performed By: #### U RIN2 ####[place] [address] Ketone Urine Negative Normal Negative [facility] Comment on above: Performed By: #### U RIN2 ####[place] [address] Leukocytes Esterase MODERATE Abnormal Negative [facility] Comment on above: Performed By: #### U RIN2 ####[place] [address] Nitrites Urine Negative Normal Negative [facility] Comment on above: Performed By: #### U RIN2 ####[place] [address] pH Test strip (U) 6.0 [pH] Normal 5.0-8.0 [facility] Comment on above: Performed By: #### U RIN2 ####[place] [address] Protein Urine Negative Normal Negative [facility] Comment on above: Performed By: #### U RIN2 ####[place] [address] Specific [place], Ur 1.031 Normal 1.005-1.030 [facility] Comment on above: Performed By: #### U RIN2 ####[facility] [place], [place] [address] Urobilinogen,Ur 0.2 EU/dL Normal 0.0-1.0 [facility] Comment on above: Performed By: #### U RIN2 ####[address] [address] Urine HCG, Qual.on 8 HCG.beta subunit ( test) Ql (U) Negative Normal Negative [facility] Comment on above: Performed By: #### H CGUR ####[address] [address] Specific [place], Ur 1.031 Abnormal 1.005-1.030 [facility] Comment on above: Performed By: #### H CGUR ####[address] [address] Vital Signs Date Time Vital Sign Value Performing Clinician Facility 10-27-2024 23:04-0400 Body temperature 97.6 [degF] No Primary Care Physician [facility] 10-27-2024 23:04-0400 Diastolic blood pressure 59 mm[Hg] No Primary Care Physician [facility] 10-27-2024 23:04-0400 Heart rate 104 /min No Primary Care Physician [facility] 10-27-2024 23:04-0400 Respiratory rate 16 /min No Primary Care Physician [facility] 10-27-2024 23:04-0400 Systolic blood pressure 119 mm[Hg] No Primary Care Physician [facility] 10-27-2024 19:49-0400 SaO2% (BldA) [Mass fraction] 99 % No Primary Care Physician [facility] 10-27-2024 19:36-0400 Body height 162.56 cm No Primary Care Physician [facility] 10-27-2024 19:36-0400 Body mass index (BMI) [Ratio] 27.8 kg/m2 No Primary Care Physician [facility] 10-27-2024 19:36-0400 Body weight 73.48 kg No Primary Care Physician [facility] 10-27-2024 09:59-0400 Body mass index (BMI) [Ratio] 27.47 kg/m2 Vera Bautista MD Work Phone: [facility] 10-27-2024 09:59-0400 Body weight 71.22 kg Vera Bautista MD Work Phone: [facility] 10-27-2024 09:56-0400 Diastolic blood pressure 78 mm[Hg] Vera Bautista MD Work Phone: [facility] 10-27-2024 09:56-0400 Systolic blood pressure 128 mm[Hg] Vera Bautista MD Work Phone: [facility] 10-19-2024 09:57-0400 Body mass index (BMI) [Ratio] 26.98 kg/m2 Cass Eid APRN.CNM Work Phone: [facility] 10-19-2024 09:57-0400 Body weight 69.94 kg Cass Eid APRN.CNM Work Phone: [facility] 10-19-2024 09:57-0400 Diastolic blood pressure 70 mm[Hg] Cass Eid APRN.CNM Work Phone: [facility] 10-19-2024 09:57-0400 Systolic blood pressure 110 mm[Hg] Cass Eid APRN.CNM Work Phone: [facility] 10-16-2024 16:11-0400 Diastolic blood pressure 70 mm[Hg] No Primary Care Physician [facility] 10-16-2024 16:11-0400 Heart rate 107 /min No Primary Care Physician [facility] 10-16-2024 16:11-0400 Systolic blood pressure 119 mm[Hg] No Primary Care Physician [facility] 10-16-2024 15:00-0400 Body height 162.56 cm No Primary Care Physician [facility] 10-16-2024 15:00-0400 Body mass index (BMI) [Ratio] 26.6 kg/m2 No Primary Care Physician [facility] 10-16-2024 15:00-0400 Body weight 70.3 kg No Primary Care Physician [facility] 10-16-2024 14:25-0400 Body temperature 98.1 [degF] No Primary Care Physician [facility] 10-16-2024 14:25-0400 Respiratory rate 20 /min No Primary Care Physician [facility] 09-19-2024 10:41-0400 Body mass index (BMI) [Ratio] 26.11 kg/m2 Thania Samaniego MD Work Phone: [facility] 09-19-2024 10:41-0400 Body weight 67.68 kg Thania Samaniego MD Work Phone: [facility] 09-19-2024 10:41-0400 Diastolic blood pressure 70 mm[Hg] Thania Samaniego MD Work Phone: [facility] 09-19-2024 10:41-0400 Systolic blood pressure 120 mm[Hg] Thania Samaniego MD Work Phone: [facility] 08-31-2024 10:24-0400 Body mass index (BMI) [Ratio] 25.9 kg/m2 Vera Bautista MD Work Phone: [facility] 08-31-2024 10:24-0400 Body weight 67.13 kg Vera Bautista MD Work Phone: [facility] 08-31-2024 10:24-0400 Diastolic blood pressure 66 mm[Hg] Vera Bautista MD Work Phone: [facility] 08-31-2024 10:24-0400 Systolic blood pressure 130 mm[Hg] Vera Bautista MD Work Phone: [facility] 08-18-2024 09:03-0400 Body mass index (BMI) [Ratio] 25.72 kg/m2 Tarun Fisher APRN.TRAFFIC ANALYST Work Phone: [facility] 08-18-2024 09:03-0400 Body weight 66.68 kg Tarun Fisher APRN.TRAFFIC ANALYST Work Phone: [facility] 08-18-2024 09:03-0400 Diastolic blood pressure 64 mm[Hg] Tarun Fisher APRN.TRAFFIC ANALYST Work Phone: [facility] 08-18-2024 09:03-0400 Systolic blood pressure 116 mm[Hg] Tarun Haury CONCRETE MIXER OPERATOR.TRAFFIC ANALYST Work Phone: [facility] 07-20-2024 09:01-0400 Body mass index (BMI) [Ratio] 24.78 kg/m2 Yakelin Plotts CONCRETE MIXER OPERATOR.CNM Work Phone: [facility] 07-20-2024 09:01-0400 Body weight 64.23 kg Yakelin Plotts CONCRETE MIXER OPERATOR.CNM Work Phone: [facility] 07-20-2024 09:01-0400 Diastolic blood pressure 72 mm[Hg] Yakelin Plotts CONCRETE MIXER OPERATOR.CNM Work Phone: [facility] 07-20-2024 09:01-0400 Systolic blood pressure 126 mm[Hg] Yakelin Plotts CONCRETE MIXER OPERATOR.CNM Work Phone: [facility] 06-22-2024 08:54-0400 Body mass index (BMI) [Ratio] 24.67 kg/m2 Tarun Haury CONCRETE MIXER OPERATOR.TRAFFIC ANALYST Work Phone: [facility] 06-22-2024 08:54-0400 Body weight 63.96 kg Tarun Haury CONCRETE MIXER OPERATOR.TRAFFIC ANALYST Work Phone: [facility] 06-22-2024 08:54-0400 Diastolic blood pressure 62 mm[Hg] Tarun Haury CONCRETE MIXER OPERATOR.TRAFFIC ANALYST Work Phone: [facility] 06-22-2024 08:54-0400 Systolic blood pressure 112 mm[Hg] Tarun Haury CONCRETE MIXER OPERATOR.TRAFFIC ANALYST Work Phone: [facility] 05-27-2024 09:25-0400 Body mass index (BMI) [Ratio] 23.45 kg/m2 Yakelin Plotts CONCRETE MIXER OPERATOR.CNM Work Phone: [facility] 05-27-2024 09:25-0400 Body weight 60.78 kg Yakelin Plotts CONCRETE MIXER OPERATOR.CNM Work Phone: [facility] 05-27-2024 09:25-0400 Diastolic blood pressure 64 mm[Hg] Yakelin Dougherty CONCRETE MIXER OPERATOR.CNM Work Phone: [facility] 05-27-2024 09:25-0400 Systolic blood pressure 116 mm[Hg] Yakelin Dougherty CONCRETE MIXER OPERATOR.CNM Work Phone: [facility] 04-29-2024 10:05-0500 Body mass index (BMI) [Ratio] 22.05 kg/m2 Vera Bautista MD Work Phone: [facility] 04-29-2024 10:05-0500 Body weight 57.15 kg Vera Bautista MD Work Phone: [facility] 04-29-2024 10:05-0500 Diastolic blood pressure 64 mm[Hg] Vera Bautista MD Work Phone: [facility] 04-29-2024 10:05-0500 Systolic blood pressure 130 mm[Hg] Vera Bautista MD Work Phone: [facility] 04-06-2024 14:35-0500 Body mass index (BMI) [Ratio] 21 kg/m2 Cassteofilo Eid CONCRETE MIXER OPERATOR.CNM Work Phone: [facility] 04-06-2024 14:35-0500 Body weight 54.43 kg Cass Eid CONCRETE MIXER OPERATOR.CNM Work Phone: [facility] 04-06-2024 14:35-0500 Diastolic blood pressure 62 mm[Hg] Cass Eid CONCRETE MIXER OPERATOR.CNM Work Phone: [facility] 04-06-2024 14:35-0500 Systolic blood pressure 108 mm[Hg] Cass Eid CONCRETE MIXER OPERATOR.CNM Work Phone: [facility] 03-28-2024 13:00-0500 Body height 161 cm Cass Eid CONCRETE MIXER OPERATOR.CNM Work Phone: [facility] 03-28-2024 13:00-0500 Body mass index (BMI) [Ratio] 20.65 kg/m2 Cass Eid CONCRETE MIXER OPERATOR.CNM Work Phone: [facility] 03-28-2024 13:00-0500 Body weight 53.52 kg Cass Stanton AMIN.CNM Work Phone: [facility] 03-28-2024 13:00-0500 Diastolic blood pressure 78 mm[Hg] Cass Stanton AMIN.CNM Work Phone: [facility] 03-28-2024 13:00-0500 Systolic blood pressure 122 mm[Hg] Cass Stanton AMIN.CNM Work Phone: [facility] 03-18-2024 22:51-0500 Diastolic blood pressure 56 mm[Hg] [facility] 03-18-2024 22:51-0500 Heart rate 80 /min [facility] 03-18-2024 22:51-0500 Respiratory rate 16 /min [facility] 03-18-2024 22:51-0500 SaO2% (BldA) [Mass fraction] 100 % [facility] 03-18-2024 22:51-0500 Systolic blood pressure 112 mm[Hg] [facility] 03-18-2024 20:36-0500 Body temperature 97.59 [degF] [facility] 06-03-2022 10:28-0400 Body height 162.6 cm Fatoumata Irvin CONCRETE MIXER OPERATOR - SIGN ARTIST Work Phone: [facility] 06-03-2022 10:28-0400 Body mass index (BMI) [Ratio] 21.46 kg/m2 Fatoumata Irvin CONCRETE MIXER OPERATOR - SIGN ARTIST Work Phone: [facility] 06-03-2022 10:28-0400 Body temperature 98.29 [degF] Fatoumata Irvin CONCRETE MIXER OPERATOR - SIGN ARTIST Work Phone: [facility] [employer] 06-03-2022 10:28-0400 Body weight 56.7 kg Fatoumata Irvin CONCRETE MIXER OPERATOR - SIGN ARTIST Work Phone: [facility] 06-03-2022 10:28-0400 Diastolic blood pressure 70 mm[Hg] Fatoumata Irvin CONCRETE MIXER OPERATOR - SIGN ARTIST Work Phone: [facility] [employer] 06-03-2022 10:28-0400 Heart rate 88 /min Fatoumata Bryan CONCRETE MIXER OPERATOR - SIGN ARTIST Work Phone: [facility] [employer] 06-03-2022 10:28-0400 Respiratory rate 18 /min Fatoumata Carusogfried CONCRETE MIXER OPERATOR - SIGN ARTIST Work Phone: [facility] [employer] 06-03-2022 10:28-0400 SaO2% (BldA) [Mass fraction] 100 % Fatoumata Carusogfried CONCRETE MIXER OPERATOR - SIGN ARTIST Work Phone: [facility] [employer] 06-03-2022 10:28-0400 Systolic blood pressure 133 mm[Hg] Fatoumata Carusogfried CONCRETE MIXER OPERATOR - SIGN ARTIST Work Phone: [facility] [employer] Encounters Encounter Date Encounter Type Care Provider Facility Start: 10-27-2024 End: 10-27-2024 ambulatory No Primary Care Physician [facility] Start: 10-27-2024 End: 10-27-[address] Thania Samaniego DO -[facility] Work Phone: Start: 10-27-2024 End: 10-27-2024 Office outpatient visit 15 minutes Vera Bautista MD Work Phone: OB/Gynecology Comment on above: 38 weeks gestation o f (HCC) (Primary Dx); Encounter for supervision of normal in multigravida (HCC) Start: 10-27-2024 End: 10-27-2024 ambulatory VERA BAUTISTA Facility:[facility] Start: 10-25-2024 End: 10-25-2024 [facility] Start: 10-25-2024 End: 10-25-2024 [facility] [place] [facility] Comment on above: Population Health Na vigation Outreach ( to PCP/OB//) Start: 10-19-2024 End: 10-19-2024 Patient encounter procedure Cass Eid APRN.CNM Work Phone: OB/Gynecology Comment on above: 37 weeks gestation o f (HCC) (Primary Dx); Encounter for supervision of normal in multigravida (HCC) Start: 10-19-2024 End: 10-19-2024 ambulatory CASSMOGRAN EID Facility:[facility] Start: 10-16-2024 End: 10-16-2024 ambulatory No Primary Care Physician -[facility] Start: 10-16-2024 End: 10-16-2024 Patient encounter procedure Cass Stanton CNM -[facility] Work Phone: Start: 10-12-2024 End: 10-12-2024 ambulatory VERA BAUTISTA Facility:[facility] Start: 09-19-2024 End: 09-19-2024 Patient encounter procedure Thania Samaniego MD Work Phone: OB/Gynecology Comment on above: Supervision of high risk in third trimester (HCC) (Primary Dx); 33 weeks gestation of (HCC); Uterine size-date discrepancy, third trimester ([facility]) Start: 09-19-2024 End: 09-19-2024 ambulatory THANIA SAMANIEGO Facility:[facility] Start: 09-06-2024 End: 09-06-2024 ambulatory Vera [...] Start: 08-31-2024 End: 08-31-2024 ambulatory VERA BAUTISTA Facility:[facility] Start: 08-22-2024 End: 10-22-2024 Follow-up encounter Tarun Fisher APRN.CNP Work Phone: OB/Gynecology Start: 08-22-2024 End: 08-22-2024 [facility] Facility:[facility] Start: 08-18-2024 End: 10-18-2024 Follow-up encounter Tarun Fisher APRN.CNP Work Phone: OB/Gynecology Start: 08-18-2024 End: 08-18-2024 Telephone encounter Tarun Fisher APRN.CNP Work Phone: OB/Gynecology Comment on above: Results Start: 08-18-2024 End: 08-18-2024 Patient encounter procedure Tarun Fisher APRN.CNP Work Phone: OB/Gynecology Comment on above: Supervision of high risk in third trimester (HCC) (Primary Dx); 28 weeks gestation of (HCC); History of vacuum extraction assisted delivery; History of oligohydramnios Start: 08-18-2024 End: 08-18-2024 [facility] Facility:[facility] Start: 07-20-2024 End: 07-20-2024 Patient encounter procedure Yakelin Dougherty APRN.CNM Work Phone: OB/Gynecology Comment on above: Screening for diabet es mellitus (Primary Dx); 24 weeks gestation of (HCC); Supervision of high risk in second trimester (HCC) Start: 07-20-2024 End: 07-20-2024 [facility] Start: 06-22-2024 End: 06-22-2024 Patient encounter procedure Tarun Fisher APRN.CNP Work Phone: OB/Gynecology Comment on above: Supervision of high risk in second trimester (HCC) (Primary Dx); 20 weeks gestation of (HCC); History of vacuum extraction assisted delivery; Encounter for supervision of normal in multigravida (HCC); with uncertain dates in first trimester (HCC) Encounter for anatomic survey (HCC) (Primary Dx); 20 weeks gestation of (HCC) Start: 06-22-2024 End: 06-22-2024 [facility] Facility:[facility] Start: 05-27-2024 End: 05-27-2024 ambulatory YAKELIN DOUGHERTY Facility:[facility] Start: 05-27-2024 End: 05-27-2024 Patient encounter procedure Yakelin Dougherty CONCRETE MIXER OPERATOR.CNM Work Phone: OB/Gynecology Comment on above: Encounter for superv ision of other normal in second trimester (Primary Dx); History of vacuum extraction assisted delivery; 15 weeks gestation of ; Nausea and vomiting in ; headache in second trimester Start: 05-05-2024 End: 07-05-2024 Follow-up encounter Vera Bautista MD Work Phone: OB/Gynecology Start: 05-03-2024 End: 05-03-2024 Patient encounter procedure [employer] [facility] Comment on above: Encounter for antena seferino screening for malformation using ultrasound (Primary Dx); 12 weeks gestation of Start: 05-03-2024 End: 05-03-2024 ambulatory CASS EID Facility:[facility] Start: 04-29-2024 End: 04-29-2024 ambulatory VERA BAUTISTA Facility:[facility] Start: 04-29-2024 End: 04-29-2024 Office outpatient visit 15 minutes Vera Bautista MD Work Phone: OB/Gynecology Comment on above: 11 weeks gestation o f (Primary Dx); Encounter for supervision of other normal in first trimester; History of vacuum extraction assisted delivery Start: 04-06-2024 End: 04-06-2024 ambulatory CASS EID Facility:[facility] Start: 04-06-2024 End: 04-06-2024 Patient encounter procedure Cass Eid CONCRETE MIXER OPERATOR.CNM Work Phone: OB/Gynecology Comment on above: Supervision of other normal (Primary Dx); Bleeding in early ; 8 weeks gestation of Start: 03-30-2024 End: 04-01-2024 ambulatory Cass Eid APRN.CNAnthony Work Phone: OB/Gynecology Comment on above: Return to work Start: 03-29-2024 End: 03-29-2024 ambulatory Cass Eid APRN.CNM Work Phone: OB/Gynecology Comment on above: Return to work Start: 03-28-2024 End: 03-28-2024 ambulatory CASS EID Facility:[facility] Start: 03-28-2024 End: 03-28-2024 Patient encounter procedure Cass Eid APRN.CNM Work Phone: OB/Gynecology Comment on above: Encounter for superv ision of normal in multigravida (Primary Dx); with uncertain dates in first trimester; History of vacuum extraction assisted delivery; Supervision of other normal ; Nausea and vomiting in Start: 03-21-2024 End: 03-21-2024 ambulatory Kim Hylton RN [facility] Clinical Communication Start: 03-21-2024 End: 03-21-2024 Patient encounter procedure [facility] Start: 03-18-2024 End: 03-18-2024 Emergency department patient visit [facility] ED Comment on above: Nausea and vomiting during (Primary Dx); Elevated blood pressure reading Start: 03-18-2024 End: 03-18-2024 Telephone encounter Yakelin Tiradoryan CROWELL Work Phone: OB/Gynecology Comment on above: Nausea Start: 06-03-2022 End: 06-03-2022 Office outpatient visit 15 minutes Fatoumata Corona NP Work Phone: [facility] Comment on above: Impacted cerumen of right ear (Primary Dx) Start: 12-21-2017 End: 12-22-2017 Emergency department patient visit [facility] Procedures Date Procedure Procedure Detail Performing Clinician Start: 10-19-2024 Urnls dip stick/tabl et rgnt non-auto w/o micrscp Cass Eid APRN.CNM Work Phone: Start: 10-16-2024 Estimated creatinine clearance No Primary Care Physician Start: 06-22-2024 Us preg uterus after 1st trimest 1/ gestation Cass Eid APRN.CNM Work Phone: Start: 05-03-2024 Us preg uterus after 1st trimest 1 gestation Cass Eid APRN.CNM Work Phone: Start: 03-28-2024 BACTERIAL VAGINOSIS NAAT Cass Eid APRN.CNM Work Phone: Start: 03-28-2024 Iadna trichomonas va ginalis amplified probe tech Cass Eid APRN.CNM Work Phone: Start: 03-28-2024 Antibody screen CASS EID Comment on above: Order Comment: Speci men Type: BLOOD SPECIMEN Ordering Facility: [facility] Address: [address] [place] [address] Performed By: #### T SPN #### [facility] CLIA [id number] [address] [place] [address] [place] Start: 03-28-2024 Iadna chlamydia trac homatis amplified probe tq Cass Eid APRN.CNM Work Phone: Start: 03-28-2024 Us uterus l imited 1/ fetuses Cass Eid APRN.CNM Work Phone: Start: 03-18-2024 Comprehensive metabo lic panel Amee Banks PA-C Work Phone: Plan of Treatment Date Care Activity Detail Author Start: 2073 RSV Immunization for Adults (1 - 1-dose 75+ series) RSV Immunization for Adults (1 - 1-dose 75+ series) [facility] Start: 2048 Zoster Vaccines (1 o f 2) Zoster Vaccines (1 of 2) [facility] Start: 03-28-2027 Screening for malign ant neoplasm of cervix Cervical Cancer Screening [facility] Start: 05-23-2025 DTaP/Tdap/Td Vaccine s (5 - Td or Tdap) DTaP/Tdap/Td Vaccines (5 - Td or Tdap) [facility] Start: 05-23-2025 DTaP/Tdap/Td Vaccine s (8 - Td or Tdap) DTaP/Tdap/Td Vaccines (8 - Td or Tdap) [facility] Start: 05-23-2025 Urine microalbumin profile DTaP,Tdap,Td Vaccine (8 - Td or Tdap) [facility] Start: 11-07-2024 Influenza vaccination Influenza Vacc ine (#1) [facility] Start: 10-27-2024 Nonstress test [facility] Start: 10-27-2024 Obstetric monitoring [facility] Start: 10-27-2024 Vital signs measurements [facility] Start: 10-27-2024 [facility] Start: 10-27-2024 End: 10-27-2024 Patient encounter procedure OB/Gynecology Comment on above: OB Start: 10-19-2024 End: 10-19-2024 Patient encounter procedure 10/19/2024 10:00 AM EDT Routine Office Visit OB/Gynecology [address] [place], [place] [id number] Cass Eid APRN.CN [address] [place], [place] [address] OB OB/Gynecology Comment on above: OB Start: 10-16-2024 Following clinical pathway protocol [facility] Start: 10-16-2024 Nonstress test [facility] Start: 10-16-2024 Obstetric monitoring [facility] Start: 10-16-2024 [facility] Start: 10-16-2024 Vital signs measurements [facility] Start: 10-12-2024 End: 10-12-2024 Patient encounter procedure Maternal Medicine Comment on above: Growth Growth/OB Start: 09-19-2024 End: 09-19-2025 OBSTETRIC ULTRASOUND WHI OBSTETRIC ULTRASOUND WHI Anc Imaging Routine 33 weeks gestation of (HCC) Supervision of high risk in third trimester (HCC) Uterine size-date discrepancy, third trimester (HCC) Expected: 09/19/2024, Expires: 09/19/2025 [facility] Work Phone: Comment on above: Expected: 09/19/2024 , Expires: 09/19/2025 Start: 09-19-2024 End: 09-19-2024 Patient encounter procedure OB/Gynecology Comment on above: OB OB- FMLA paper work in chart prep binder Start: 08-31-2024 End: 08-31-2024 Patient encounter procedure 08/31/2024 10:40 AM EDT Routine Office Visit OB/Gynecology [address] [place] [address] Vera Bautista MD [address] [place] [address] OB OB/Gynecology Comment on above: OB Start: 08-22-2024 End: 08-22-2024 ambulatory 08/22/2024 8:45 AM EDT Results Only [facility] [place] [facility] [address] [place] [address] 3 hour GTT [facility] Comment on above: 3 hour GTT Start: 08-20-2024 End: 11-19-2024 ANEMIA REFLEX PANEL ANEMIA REFLEX PANEL Lab Routine 24 weeks gestation of ([facility]) Supervision of high risk in second trimester ([facility]) Expected: 08/20/2024 (Approximate), Expires: 11/19/2024 [facility] Comment on above: Expected: 08/20/2024 (Approximate), Expires: 11/19/2024 Start: 08-20-2024 End: 07-20-2025 GESTATIONAL GLUCOSE SCREEN, 1-HOUR, 50 GRAM, NON-FASTING GESTATIONAL GLUCOSE SCREEN, 1-HOUR, 50 GRAM, NON-FASTING Lab Routine Screening for diabetes mellitus Expected: 08/20/2024 (Approximate), Expires: 07/20/2025 [facility] Work Phone: Comment on above: Expected: 08/20/2024 (Approximate), Expires: 07/20/2025 Start: 08-20-2024 End: 07-20-2025 SYPHILIS TREPONEMAL W/REFLEX SYPHILIS TREPONEMAL W/REFLEX Lab Routine 24 weeks gestation of ([facility]) Supervision of high risk in second trimester ([facility]) Expected: 08/20/2024 (Approximate), Expires: 07/20/2025 [facility] Comment on above: Expected: 08/20/2024 (Approximate), Expires: 07/20/2025 Start: 08-18-2024 End: 11-17-2024 GEST GLUC NEREIDA, 3-HR, 100 GM, FASTING GEST GLUC NEREIDA, 3-HR, 100 GM, FASTING Lab Routine Elevated glucose tolerance test Expected: 08/18/2024, Expires: 11/17/2024 [facility] Work Phone: Comment on above: Expected: 08/18/2024 , Expires: 11/17/2024 Start: 08-18-2024 End: 08-18-2024 Patient encounter procedure 08/18/2024 9:00 AM EDT Routine Office Visit OB/Gynecology [address] [place] [address] Tarun Fisher APRN.TRAFFIC ANALYST [address] [place] [address] CASH/glucose OB/Gynecology Comment on above: CASH/glucose Start: 08-18-2024 End: 08-18-2024 ambulatory 08/18/2024 8:45 AM EDT Results Only [facility] [place] [address] [place] [address] glucose [facility] Comment on above: glucose Start: 07-20-2024 End: 07-20-2024 Patient encounter procedure 07/20/2024 9:15 AM EDT Routine Office Visit OB/Gynecology [address] [place] [address] Yakelin Dougherty APRN.CNM [address] [place] [address] OB Routine OB/Gynecology Comment on above: OB Routine Start: 06-22-2024 End: 06-22-2024 Patient encounter procedure Maternal Medicine Comment on above: ANATOMY ANATOMY/OB Start: 05-27-2024 End: 05-27-2024 Patient encounter procedure 05/27/2024 9:45 AM EDT Routine Office Visit OB/Gynecology [address] [place] [address] Yakelin Dougherty APRN.[facility] [address] [place] [address] OB OB/Gynecology Comment on above: OB Start: 05-03-2024 End: 05-03-2024 Patient encounter procedure 05/03/2024 2:30 PM EST Routine Office Visit Maternal Medicine [address] [place] [address] Nuchal US Maternal Medicine Comment on above: Nuchal US Start: 04-29-2024 End: 07-29-2024 Chromosome 21 trisomy [Presence] in Blood or Tissue by Cytogenetics [facility] Work Phone: Comment on above: Expected: 04/29/2024 , Expires: 07/29/2024 Start: 04-29-2024 End: 04-29-2024 Patient encounter procedure 04/29/2024 10:00 AM EST Routine Office Visit OB/Gynecology [address] [place] [address] Vera Bautista MD [address] [place] [address] 1ST OB LMP 01/30/2024 OB/Gynecology Comment on above: 1ST OB LMP Start: 03-28-2024 End: 06-27-2024 ANEMIA REFLEX PANEL [facility] Work Phone: Comment on above: Expected: 03/28/2024 , Expires: 06/27/2024 Start: 03-28-2024 End: 03-28-2025 OBSTETRIC ULTRASOUND WHI OBSTETRIC ULTRASOUND WHI Anc Imaging Routine Encounter for supervision of normal in multigravida with uncertain dates in first trimester Expected: 03/28/2024, Expires: 03/28/2025 [facility] Comment on above: Expected: 03/28/2024 , Expires: 03/28/2025 Start: 03-28-2024 End: 03-28-2024 Patient encounter procedure 03/28/2024 1:00 PM EST Initial Office Visit OB/Gynecology [address] [place] [address] Cass Eid APRN.CN [address] [place] [address] 1ST OB LMP 01/30/2024 OB/Gynecology Comment on above: 1ST OB LMP Start: 11-08-2023 Covid-19 Vaccine () Covid-19 Vaccine () [facility] Start: 11-08-2023 COVID-19 Vaccine () COVID-19 Vaccine () [facility] Start: 11-08-2023 Influenza vaccination Influenza Vacc ine (#1) [facility] Start: 06-15-2020 COVID-19 Vaccine (3 - Booster for Moderna series) COVID-19 Vaccine (3 - Booster for Moderna series) [facility] Start: 06-02-2019 Screening for malign ant neoplasm of cervix [facility] Start: 2016 Anxiety Screening Anxiety Screening [facility] Start: 2016 Depression Screening Depression Scre ening [facility] Start: 2016 Hepatitis C screening Hepatitis C Sc reening [facility] Start: 2013 HPV Vaccine (1 - 3-d ose series) HPV Vaccine (1 - 3-dose series) [facility] Start: 2013 HPV Vaccines (1 - 3-dose series) HPV Vaccines (1 - 3-dose series) [facility] Start: 2012 Peds To Adult Transition Annual Assessment Peds To Adult Transition Annual Assessment [facility] Start: 2010 Depression Screening Depression Scre ening [facility] Start: 2010 Peds To Adult Transition Initial Discussion Peds To Adult Transition Initial Discussion [facility] Start: 2009 HPV Vaccines (1 - 2-dose series) HPV Vaccines (1 - 2-dose series) [facility] Start: 1998 HIV screening HIV Screening [facility] PAP TEST PAP TEST Lab Lucy thompson Encounter for supervision of normal in multigravida 03/28/2024 4:18 PM EST [facility] Patient Education Kick Counts ED False Labor OB Triage: Return to Hospital or Notify Physician if you Experience: [facility] Work Phone: Immunizations Immunization Date Immunization Notes Care Provider Elyse jacobo 01-08-2024 influenza virus vacc ine, unspecified formulation Vera Bautista MD Work Phone: [facility] 12-17-2021 influenza virus vacc ine, unspecified formulation [facility] 01-10-2017 influenza, injectabl e, quadrivalent, preservative free Yakelin Dougherty CONCRETE MIXER OPERATOR.CNM Work Phone: [facility] 01-10-2017 influenza virus vacc ine, unspecified formulation Yakelin Plotts CONCRETE MIXER OPERATOR.CNM Work Phone: [facility] 05-24-2015 tetanus toxoid, redu chandan diphtheria toxoid, and acellular pertussis vaccine, adsorbed Yakelin Plotts CONCRETE MIXER OPERATOR.CNM Work Phone: [facility] 09-29-2014 meningococcal polysaccharide (groups A, C, Y and W-135) diphtheria toxoid conjugate vaccine (MCV4P) Yakelin Plotryan CONCRETE MIXER OPERATOR.CNM Work Phone: [facility] Work Phone: 10-06-2011 hepatitis A vaccine, unspecified formulation Yakelin Dougherty CONCRETE MIXER OPERATOR.CNM Work Phone: [facility] 10-06-2011 varicella virus vaccine Cour demario Dougherty CONCRETE MIXER OPERATOR.CNM Work Phone: [facility] 08-09-2010 hepatitis A vaccine, unspecified formulation Yakelin Dougherty CONCRETE MIXER OPERATOR.CNM Work Phone: [facility] 08-09-2010 Meningococcal, MCV4, unspecified conjugate formulation(groups A, C, Y and W-135) Yakelin Tiradots CONCRETE MIXER OPERATOR.CNM Work Phone: [facility] 08-09-2010 tetanus toxoid, redu chandan diphtheria toxoid, and acellular pertussis vaccine, adsorbed Yakelin Plotts CONCRETE MIXER OPERATOR.CNM Work Phone: [facility] 02-07-2010 influenza virus vacc ine, unspecified formulation Yakelin Plotts CONCRETE MIXER OPERATOR.CNM Work Phone: [facility] 01-22-2006 influenza virus vacc ine, unspecified formulation Yakelin Plotts CONCRETE MIXER OPERATOR.CNM Work Phone: [facility] Work Phone: 01-23-2004 influenza virus vacc ine, unspecified formulation Yakelin Plotts CONCRETE MIXER OPERATOR.CNM Work Phone: [facility] 08-03-2003 diphtheria, tetanus toxoids and acellular pertussis vaccine Yakelin Plotts CONCRETE MIXER OPERATOR.CNM Work Phone: [facility] 08-03-2003 measles, mumps and rubella virus vaccine Yakelin Plotts CONCRETE MIXER OPERATOR.CNM Work Phone: [facility] 08-03-2003 poliovirus vaccine, inactivated Yakelin Plotts CONCRETE MIXER OPERATOR.CNM Work Phone: [facility] 02-10-2003 influenza virus vacc ine, unspecified formulation Yakelin Plotts CONCRETE MIXER OPERATOR.CNM Work Phone: [facility] 12-23-2002 influenza virus vacc ine, unspecified formulation Yakelin Plotts CONCRETE MIXER OPERATOR.CNM Work Phone: [facility] 09-20-1999 diphtheria, tetanus toxoids and acellular pertussis vaccine Yakelin Plotts CONCRETE MIXER OPERATOR.CNM Work Phone: [facility] 09-20-1999 haemophilus influenz ae type b vaccine, HbOC conjugate Yakelin Plotts CONCRETE MIXER OPERATOR.CNM Work Phone: [facility] 09-20-1999 measles, mumps and rubella virus vaccine Yakelin Plotts CONCRETE MIXER OPERATOR.CNM Work Phone: [facility] 09-20-1999 poliovirus vaccine, inactivated Yakelin Plotts CONCRETE MIXER OPERATOR.CNM Work Phone: [facility] 06-07-1999 varicella virus vaccine Cour tney Plotts CONCRETE MIXER OPERATOR.CNM Work Phone: [facility] 02-20-1999 diphtheria, tetanus toxoids and acellular pertussis vaccine Yakelin Plotts CONCRETE MIXER OPERATOR.CNM Work Phone: [facility] 02-20-1999 haemophilus influenz ae type b vaccine, HbOC conjugate Yakelin Plotts CONCRETE MIXER OPERATOR.CNM Work Phone: [facility] 02-20-1999 hepatitis B vaccine, pediatric or pediatric/adolescent dosage Yakelin Plotts CONCRETE MIXER OPERATOR.CNM Work Phone: [facility] 1998 diphtheria, tetanus toxoids and acellular pertussis vaccine Yakelin Plotts CONCRETE MIXER OPERATOR.CNM Work Phone: [facility] 1998 haemophilus influenz ae type b vaccine, HbOC conjugate Yakelin Plotts CONCRETE MIXER OPERATOR.CNM Work Phone: [facility] 1998 hepatitis B vaccine, pediatric or pediatric/adolescent dosage Yakelin Plotts CONCRETE MIXER OPERATOR.CNM Work Phone: [facility] 1998 poliovirus vaccine, inactivated Yakelin Plotts CONCRETE MIXER OPERATOR.CNM Work Phone: [facility] 1998 diphtheria, tetanus toxoids and acellular pertussis vaccine Yakelin Plotts CONCRETE MIXER OPERATOR.CNM Work Phone: [facility] Work Phone: 1998 haemophilus influenz ae type b vaccine, HbOC conjugate Yakelin Plotts CONCRETE MIXER OPERATOR.CNM Work Phone: [facility] 1998 hepatitis B vaccine, pediatric or pediatric/adolescent dosage Yakelin Plotts CONCRETE MIXER OPERATOR.CNM Work Phone: [facility] 1998 poliovirus vaccine, inactivated Yakelin Plotts CONCRETE MIXER OPERATOR.CNM Work Phone: [facility] Payers Date Payer Category Payer Self-pay 2024 Commercial Managed C [facility] - [facility] [id number] 2024 Medicaid [id number] 2024 Private Health Insurance MMO [facility] [id number] 2024 Unknown MMO [employer] [id number] 2024-Present [phone] [address] [place] [address] Indemnity [id number] 2024 Unknown [id number] 2012 Unknown [id number] 2012 Unknown [id number] Unknown [id number] Unknown [id number] Unknown [id number] Social History Date Type Detail Facility Start: 07-04-2013 End: 07-10-2015 Tobacco smoking status CAIS Never smoked tobacco [facility] Start: 06-03-2022 End: 03-18-2024 Alcohol intake Lifetime non-drinker (finding) [facility] Start: 2000 Sex Assigned At Not on file [facility] Start: 05-24-2022 End: 06-03-2022 Exposure to SARS-CoV-2 (event) Not sure [facility] Start: 07-04-2013 End: 03-24-2024 Tobacco use and exposure Smokeless tobacco non-user [facility] Start: 07-08-2018 End: 10-27-2024 Alcoholic beverage intake Current non-drinker of alcohol (finding) [facility] Start: 07-08-2018 End: 05-03-2024 History of Social function [facility] Start: 07-08-2018 End: 05-03-2024 Tobacco use panel [facility] Start: 02-08-2012 PHQ2 Score 0 [facility] How often do you hav e 6 or more drinks on 1 occasion? Less than monthly [facility] Start: 10-07-2021 Sex Female (finding) [facility] Start: 02-13-2024 [facility] Start: 03-24-2024 Sexual orientation Heterosexual (adrian torres) [facility] Start: 2000 Sex Assigned At Female [facility] Goals Date Patient Goal Desired Activity /State Personal health goal Functional Status Date Assessment Result Facility 09-29-2014 Are you deaf, or do you have serious difficulty hearing No 09/29/2014 2:53 PM Shania Resendiz RN No [facility] 09-29-2014 Are you blind, or do you have serious difficulty seeing, even when wearing glasses No 09/29/2014 2:53 PM Shania Resendiz RN No [facility] 09-29-2014 Do you have serious difficulty walking or climbing stairs No 09/29/2014 2:53 PM Shania Resendiz RN No [facility] 09-29-2014 Do you have difficul ty dressing or bathing No 09/29/2014 2:53 PM Shania Resendiz RN No [facility] 09-29-2014 Because of a physica l, mental, or emotional condition, do you have difficulty doing errands alone such as visiting a physician's office or shopping No 09/29/2014 2:53 PM Shania Resendiz RN No [facility] Mental Status Date Assessment Result Facility 09-29-2014 Because of a physica l, mental, or emotional condition, do you have serious difficulty concentrating, remembering, or making decisions No 09/29/2014 2:53 PM EDT Shania Dubon RN No [facility] Clinical Notes 06-03-2022 to 10-27-2024 Quick Notes - Vera Bautista MD - 10/27/2024 2:15 PM EDTPrenatal Quick Notes - Vera Bautista MD - 10/27/2024 2:15 PM Meche Lui MA - 10/25/2024 11:25 AM EDTPatient Instructions Note Date & Type Note Facility 10-27-2024 Progress note Formatting of t his note [...] Gen: No apparent distress Abd: Gravid, nontender Possible LOF but negative Nitrazine, and negative fern. No pooling Induction of labor at 39+2 ASSESSMENT/PLAN: 1. 38 weeks gestation of ([facility]) - ICD9: V22.2, ICD10: Z3A.38 (primary diagnosis) 2. Encounter for supervision of normal in multigravida ([facility]) - ICD9: V22.1, ICD10: Z34.80 Vera Bautista MD [facility] 10-27-2024 Miscellaneous Notes S: Rip Ames is a 24 year old female who presents at 11/05/2024, by Ultrasound for a routine visit. Denies headache, visual changes, chest pain, shortness of breath, vaginal bleeding, leakage of fluid, or dysuria. Feeling well, no complaints. Good movement, No contractions O: See flow sheet Gen: No apparent distress Abd: Gravid, nontender Possible LOF but negative Nitrazine, and negative fern. No pooling Induction of labor at 39+2 ASSESSMENT/PLAN: 1. 38 weeks gestation of ([facility]) - ICD9: V22.2, ICD10: Z3A.38 (primary diagnosis) 2. Encounter for supervision of normal in multigravida (HCC) - ICD9: V22.1, ICD10: Z34.80 Vera Bautista MD documented in this encounter [facility] 10-27-2024 Note HNO ID: [id number] Author: MECHE BROOKS MA Service: ? Author Type: Crude Oil Treater Type: Progress Notes Filed: 10/27/2024 13:09 Note Text: POPULATION HEALTH NAVIGATION OUTREACH Action/ 2nd attempt: Called and left message to call back. Reason for Outreach Medicaid OB/Peds Care Gaps due: to PCP Visit Patient Contacted: Unable or unnecessary to reach patient: Unable to reach patient Left message Navigation Signature: Meche Golden MA October 27, 2024 1:08 PM [facility] 10-25-2024 Note HNO ID: [id number] Author: MECHE BROOKS MA Service: ? Author Type: Crude Oil Treater Type: Progress Notes Filed: 10/25/2024 11:28 Note Text: POPULATION HEALTH NAVIGATION OUTREACH Action/ 1st attempt: Called and unable to leave message to call back to discuss knocker out. MC message sent. PPC to PCP by 01/11/25. Reason for Outreach Medicaid OB/Peds Care Gaps due: to PCP Visit Patient Contacted: Unable or unnecessary to reach patient: Unable to reach patient Unable to leave message [employer] message sent Navigation Signature: Meche Golden MA October 25, 2024 11:26 AM [facility] 10-25-2024 History of Presen t illness Narrative POPULATION HEALTH NAVIGATION OUTREACH Action/ 1st attempt: Called and unable to leave message to call back to discuss knocker out. MC message sent. PPC to PCP by 01/11/25. Reason for Outreach Medicaid OB/Peds Care Gaps due: to PCP Visit Patient Contacted: Unable or unnecessary to reach patient: Unable to reach patient Unable to leave message [employer] message sent Navigation Signature: Meche Golden MA October 25, 2024 11:26 AM documented in this encounter [facility] 10-25-2024 Note Patient Outreach (THIERRY DILLAV) RIP AMES ([id number]) 2000 F Date Time Provider Department 10/25/24 MECHE BROOKS During your visit today, we recorded the following information about you: Meche Brooks MA 10/25/2024 11:28 AM Signed POPULATION HEALTH NAVIGATION OUTREACH Action/ 1st attempt: Called and unable to leave message to call back to discuss knocker out. message sent. PPC to PCP by 01/11/25. Reason for Outreach Medicaid OB/Peds Care Gaps due: to PCP Visit Patient Contacted: Unable or unnecessary to reach patient: Unable to reach patient Unable to leave message MyChart message sent Navigation Signature: Mcehe Golden MA October 25, 2024 11:26 AM Meche Brooks MA 10/27/2024 1:09 PM Signed POPULATION HEALTH NAVIGATION OUTREACH Action/I 2nd attempt: Called and left message to call back. Reason for Outreach Medicaid OB/Peds Care Gaps due: to PCP Visit Patient Contacted: Unable or unnecessary to reach patient: Unable to reach patient Left message Navigation Signature: Meche Golden MA October 27, 2024 1:08 PM Allergies As of Date: 10/25/2024 Noted Allergy Reaction AMOXICILLIN 04/14/2005 8 - GI Upset Date Reviewed: 10/19/2024 Reviewed by: Meche Rucker MA - Fully Assessed Reason for Visit: Population Health Navigation Outreach [3910] Cmt: to PCP/OB Prescriptions as of 10/27/2024 - aspirin, enteric coated (ECOTRIN LOW STRENGTH) 81 mg EC tablet Take 1 tablet by mouth once daily. - PNV no.95/ferrous fum/folic ac ( ORAL) Take 1 tablet by mouth once daily. 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] 02/03/2012 08/23/2013 Late care affecting in third*05/17/2015 05/28/2017 High risk teen in third trimester [O0*05/17/2015 05/28/2017 History of vacuum extraction assisted delivery *03/28/2024 Supervision of high risk in third tri*03/28/2024 Nausea and vomiting in [O21.9] 03/28/2024 05/27/2024 headache in second trimester (HCC) [O*05/27/2024 07/20/2024 History of oligohydramnios [Z87.59] 08/18/2024 Elevated glucose tolerance test [R73.09] 08/18/2024 Encounter Status:Closed by MECHE BROOKS on 10/25/24 [facility] 10-19-2024 Note HNO ID: [id number] Author: CASS EID APRN.CNM Service: ? Author Type: Call Center Assistant Type: Progress Notes Filed: 10/19/2024 10:54 Note Text: CHANDA-S: Rip Ames is a 24 year old female who presents at 37w4d with FELICIA: 11/05/2024, by Ultrasound for a routine visit. Denies headache, visual changes, chest pain, shortness of breath, vaginal bleeding, leakage of fluid, or dysuria. Feeling well, no complaints. O: See flow sheet Gen: No apparent distress Abd: Gravid, nontender Limited bedside US shows cephalic presentation. present for ultrasound and verified. SENSITIVE EXAMINATION CONSENT: The sensitive examination was discussed with the Patient or Patient's Authorized Charger Operator Helper. As applicable, any other physician, advance practice provider, medical student, or other health professional student that will be observing or involved in the sensitive examination for educational or training purposes was discussed with the Patient or Authorized Charger Operator Helper. The Patient or Authorized Charger Operator Helper has agreed to proceed with the sensitive examination. ASSESSMENT/PLAN: 1. 37 weeks gestation of -Continue PNV -GBS today 2. Encounter for supervision of normal in multigravida PTL precautions reviewed and when to call RTO in one week Cass Eid APRN.CNM [facility] 10-19-2024 History of Presen t illness Narrative CHANDA-S: Rip Ames is a 24 year old female who presents at 37w4d with FELICIA: 11/05/2024, by Ultrasound for a routine visit. Denies headache, visual changes, chest pain, shortness of breath, vaginal bleeding, leakage of fluid, or dysuria. Feeling well, no complaints. O: See flow sheet Gen: No apparent distress Abd: Gravid, nontender Limited bedside US shows cephalic presentation. present for ultrasound and verified. SENSITIVE EXAMINATION CONSENT: The sensitive examination was discussed with the Patient or Patient's Authorized Charger Operator Helper. As applicable, any other physician, advance practice provider, medical student, or other health professional student that will be observing or involved in the sensitive examination for educational or training purposes was discussed with the Patient or Authorized Charger Operator Helper. The Patient or Authorized Charger Operator Helper has agreed to proceed with the sensitive examination. ASSESSMENT/PLAN: 1. 37 weeks gestation of -Continue PNV -GBS today 2. Encounter for supervision of normal in multigravida PTL precautions reviewed and when to call RTO in one week Cass Eid APRN.CNM documented in this encounter [facility] 10-19-2024 Instructions Meche Rucker MA - 10/19/2024 9:55 AM EDT SEQUENTIAL SCREENINGS The [facility] offers sequential screenings for women who are [...] It will require an appointment with our quality lab technician. This is not an ultrasound performed [...] the above symptoms, contact our office at [phone] and ask to speak with a nurse. After hours, you can call doctors registry at [phone] OR call [facility] at [phone] and ask to have the doctor furniture rental consultant paged. If you consider this an emergency, dial 9-1-9 or go to your nearest emergency department. NEED HELP? Are you dealing with a violent or abusive relationship? Are you a victim of rape or sexual assult? Call [facility] ([place]) 24 hour Crisis Hotline: 230.486.7846 or 570-557-1374. MANUAL Your Guide to a Healthy manual is now on-line. Visit [email or web address] to download your free copy documented in this encounter [facility] 10-16-2024 Evaluation note Diagnosis Onset Date Resolution 37 weeks gestation of acute October 16 2:05pm Headache in , antepartum acute October 16 2:05pm [facility] Work Phone: 1(776) 920-306407-14-2025 Progress note* Quick Notes - Thania Samaniego MD - 09/19/2024 10:48 AM EDT SW- Pt doing well. No ctx, vb, lof. Good FM. Low back pain PE: Gen- NAD, well appearing Abd- Soft, gravid, NT, S>D See flowsheet A/p 33 wk gestation - S>D: Check growth US - Discussed expectations - RTO 2 wks Thania Samaniego DO [facility]07-14-2025 Miscellaneous Notes* Quick Notes - Thania Samaniego MD - 09/19/2024 10:48 AM EDT SW- Pt doing well. No ctx, vb, lof. Good FM. Low back pain PE: Gen- NAD, well appearing Abd- Soft, gravid, NT, S>D See flowsheet A/p 33 wk gestation - S>D: Check growth US - Discussed expectations - RTO 2 wks Thania Samaniego DO documented in this encounterOhio State Health System07-14-2025 Instructions* Patient Instructions* Meche Rucker MA - 09/19/2024 10:38 AM EDT SEQUENTIAL SCREENINGS The [facility] offers sequential screenings for women who are interested in screenings for chromosomal abnormalities and certain defects during a . The sequential screen combinesultrasound and blood tests to determine the risk [...] this testing. It will require an appointment withour quality lab technician. This is not an ultrasound performed [...] the above symptoms, contact our office at [phone] and ask to speak with anurse. After hours, you can call doctors registry at [phone] OR call [facility] at [phone] ask to have the doctor furniture rental consultant paged. If you consider this an emergency, dial 9--1 or go to your nearest emergency department. NEED HELP? Are you dealing with a violent or abusive relationship? Are you a victim of rape or sexual assult? Call [facility] ([place]) 24 hour Crisis Hotline: 824.943.4814 or 440-266-8087. MANUAL Your Guide to a Healthy manual is now on-line. Visit [email or web address] to download your free copy documented in this encounterOhio State [facility] System07-02-2025 Telephone encounter Note * Telephone Encounter - Kayley Cross MA - 09/07/2024 3:57 PM EDT FMLA completed and faxed 09/06/2024. Copy of FMLA for patient is in chart prep binder. [facility]07-02-2025 Miscellaneous Notes* Telephone Encounter - Kayley Cross MA - 09/07/2024 3:57 PM EDT FMLA completed and faxed 09/06/2024. Copy of FMLA for patient is in chart prep binder. * Telephone Encounter - Tania Mojica LPN - 09/06/2024 11:36 AM EDT Form to Kayley to complete documented in this encounterOhio State Health System07-01-2025 Telephone encounter Note * Telephone Encounter - Tanai Mojica LPN - 09/06/2024 3:13 PM EDT FMLA completed and sent for scanning. Patient will belt picker copy at next ob appointment. Copy will be in chart prep binder. [facility]07-01-2025 Miscellaneous Notes* Telephone Encounter - Tania Mojica LPN - 09/06/2024 3:13 PM EDT FMLA completed and sent for scanning. Patient will belt picker copy at next ob appointment. Copy will be in chart prep binder. documented in this encounterOhio State Health System07-01-2025 Telephone encounter Note * Telephone Encounter - Tania Mojica LPN - 09/06/2024 11:36 AM EDT Form to Kayley to complete [facility]06-25[facility] Progress note* Quick Notes - Vera Bautista MD - 08/31/2024 10:29 AM EDT S: Rip Ames is a 24 year [...] ICD9: V22.2, ICD10: Z3A.30 Vera Bautista MD [facility] Miscellaneous Notes* Quick Notes - Vera Bautista MD - 08/31/2024 10:29 AM EDT S: Rip Ames is a 24 year [...] Supervision of high risk in third trimester ([facility]) - ICD9: V23.9, ICD10: O09.93 (primary diagnosis) RTO 2 weeks 2. History of vacuum extraction assisted delivery - ICD9: V13.29, ICD10: Z87.59 3. History of oligohydramnios - ICD9: V13.29, ICD10: Z87.59 4. 30 weeks gestation of ([facility]) - ICD9: V22.2, ICD10: Z3A.30 Vera Bautista MD documented in this encounterOhio State Health System06-25-2025 Instructions* Patient Instructions* Masha Sneed MA - 08/31/2024 10:21 AM EDT SEQUENTIAL SCREENINGS The [facility] offers sequential screenings for women who are interested in screenings for chromosomal abnormalities and certain defects during a . The sequential screen combinesultrasound and blood tests to determine the risk [...] this testing. It will require an appointment withour quality lab technician. This is not an ultrasound performed [...] the above symptoms, contact our office at [phone] and ask to speak with anurse. After hours, you can call doctors registry at [phone] OR call [facility] at [phone] ask to have the doctor furniture rental consultant paged. If you consider this an emergency, dial 9-1-1 or go to your nearest emergency department. NEED HELP? Are you dealing with a violent or abusive relationship? Are you a victim of rape or sexual assult? Call [facility] ([place]) 24 hour Crisis Hotline: 803.217.6521 or 441-066-3692. MANUAL Your Guide to a Healthy manual is now on-line. Visit [email or web address] to download your free copy documented in this encounterOhio State Health System06-12-2025 Telephone encounter Note * Telephone Encounter - Vera Gramajo RN - 08/18/2024 12:00 PM EDT Linked to appointment. Vera Gramajo RN [facility]06-[facility] Miscellaneous Notes* Telephone Encounter - Vera Gramajo RN - 08/18/2024 12:00 PM EDT Linked to appointment. Vera Gramajo RN * Telephone Encounter - Tarun Fisher APRN.CNP - 08/18/2024 11:43 AM EDT Сергей Fisher APRN.CNP * Telephone Encounter - Chelly Magaña RN - 08/18/2024 11:32 AM EDT 28w5d Saw EH today. She saw 1 hour glucose result was elevated on mychart. Discussed 3 hour GTT and scheduled lab appt. Can you file order to attach to that appt since CP is out of office the rest of the week? Chelly Magaña RN documented in this encounterOhio State Health System06-12-2025 Telephone encounter Note * Telephone Encounter - Tarun Fisher APRN.CNP - 08/18/2024 11:43 AM EDT Ordered Tarun Fisher APRN.CNP [facility] Telephone encounter Note* Telephone Encounter - Chelly Magaña RN - 08/18/2024 11:32 AM EDT 28w5d Saw EH today. She saw 1 hour glucose result was elevated on mychart. Discussed 3 hour GTT and scheduled lab appt. Can you file order to attach to that appt since CP is out of office the rest of the week? Chelly Magaña RN [facility]-12[facility]20[facility] Progress note* Quick Notes - Tarun Fisher APRN.CNP - 08/18/2024 9:10 AM EDT EH - S: Rip is a 24 [...] and LDA 2. 28 weeks gestation of ([facility]) - ICD9: V22.2, ICD10: Z3A.28 - 1 [...] in 2 weeks or sooner as needed. Tarun Fisher APRN.CNP [facility]06-12[facility]2025 Miscellaneous Notes* Quick Notes - Tarun Fisher APRN.CNP - 08/18/2024 9:10 AM EDT EH - S: Rip is a 24 [...] Supervision of high risk in third trimester ([facility]) - ICD9: V23.9, ICD10: O09.93 (primary diagnosis) - Continue PNV and LDA 2. 28 weeks gestation of ([facility]) - ICD9: V22.2, ICD10: Z3A.28 - 1 [...] in 2 weeks or sooner as needed. Tarun Fisher APRN.TRAFFIC ANALYST documented in this encounterOhio State Health System06-12-2025 Instructions* Patient Instructions* Tarun Fisher APRN.CNP - 08/18/2024 9:02 AM EDT Please call [phone] to pre-register for your and labor and delivery stay at [facility]. They will want to know your due date, insurance and contact information. This isimportant to do before you go into labor to help with the efficiency of the admission process when you arrive. Thank you so much! SEQUENTIAL SCREENINGS The [facility] offers sequential screenings for women who are interested in screenings for chromosomal abnormalities and certain defects during a . The sequential screen combinesultrasound and blood tests to determine the risk [...] this testing. It will require an appointment withour quality lab technician. This is not an ultrasound performed [...] the above symptoms, contact our office at [phone] and ask to speak with anurse. After hours, you can call doctors registry at [phone] OR call [facility] at [phone] ask to have the doctor furniture rental consultant paged. If you consider this an emergency, dial or go to your nearest emergency department. NEED HELP? Are you dealing with a violent or abusive relationship? Are you a victim of rape or sexual assult? Call [facility] ([place]) 24 hour Crisis Hotline: 359.235.6487 or 056-394-3967. MANUAL Your Guide to a Healthy manual is now on-line. Visit [email or web address] to download your free copy documented in this encounterOhio State Health System05-14-2025 Progress note* Quick Notes - Yakelin Dougherty APRN.CNM - 07/20/2024 9:39 AM EDT S: Rip Ames is a 24 year [...] 2 weeks for CASH with GCT Yakelin Dougherty APRN.CNM [facility]05-14-2025 Miscellaneous Notes* Quick Notes - Yaklein Dougherty APRN.CNM - 07/20/2024 9:39 AM EDT S: Rip Ames is a 24 year [...] 2 weeks for CASH with GCT Yakelin Dougherty APRN.CNM documented in this encounterOhio State Health System05-14-2025 Instructions* Patient Instructions* Meche Rucker MA - 07/20/2024 8:59 AM EDT SEQUENTIAL SCREENINGS The [facility] offers sequential screenings for women who are interested in screenings for chromosomal abnormalities and certain defects during a . The sequential screen combinesultrasound and blood tests to determine the risk [...] this testing. It will require an appointment withour quality lab technician. This is not an ultrasound performed [...] the above symptoms, contact our office at [phone] and ask to speak with anurse. After hours, you can call doctors registry at [phone] OR call [facility] at [phone] ask to have the doctor furniture rental consultant paged. If you consider this an emergency, dial 9-1-1 or go to your nearest emergency department. NEED HELP? Are you dealing with a violent or abusive relationship? Are you a victim of rape or sexual assult? Call [facility] ([place]) 24 hour Crisis Hotline: 448.642.2535 or 616-635-6753. MANUAL Your Guide to a Healthy manual is now on-line. Visit [email or web address] to download your free copy documented in this encounterOhio State Health System04-16-2025 NoteHNO ID: [id number] Author: TARUN FISHER APRN.[facility] Service: ? Author Type: Nurse Practitioner Type: [...] answered questions 2. 20 weeks gestation of ([facility]) - ICD9: V22.2, ICD10: Z3A.20 - Anatomy ultrasound today, report pending 3. History of vacuum extraction assisted delivery - ICD9: V13.29, ICD10: Z87.59 PTL precautions reviewed. RTO in 4 weeks or sooner as needed. Tarun Fisher APRN.[facility]04-16-2025 History of Present illness Narrative* Tarun Fisher APRN.[facility] - 06/22/2024 8:56 AM EDT EH - S: Rip is a 24 [...] answered questions 2. 20 weeks gestation of ([facility]) - ICD9: V22.2, ICD10: Z3A.20 - Anatomy ultrasound today, report pending 3. History of vacuum extraction assisted delivery - ICD9: V13.29, ICD10: Z87.59 PTL precautions reviewed. RTO in 4 weeks or sooner as needed. Tarun Fisher APRN.TRAFFIC ANALYST documented in this encounterOhio State Health System04-16-2025 Instructions* Patient Instructions* Kayley Cross MA - 06/22/2024 8:19 AM EDT SEQUENTIAL SCREENINGS The [facility] offers sequential screenings for women who are interested in screenings for chromosomal abnormalities and certain defects during a . The sequential screen combinesultrasound and blood tests to determine the risk [...] this testing. It will require an appointment withour quality lab technician. This is not an ultrasound performed [...] the above symptoms, contact our office at [phone] and ask to speak with anurse. After hours, you can call doctors registry at [phone] OR call [facility] at [phone] ask to have the doctor furniture rental consultant paged. If you consider this an emergency, dial -7 or go to your nearest emergency department. NEED HELP? Are you dealing with a violent or abusive relationship? Are you a victim of rape or sexual assult? Call [facility] ([facility] 24 hour Crisis Hotline: 294.952.7262 or 765-224-9315. MANUAL Your Guide to a Healthy manual is now on-line. Visit [email or web address] to download your free copy documented in this encounterOhio State Health System03-21-2025 Progress note* Quick Notes - Yakelin Dougherty APRN.CNM - 05/27/2024 9:52 AM EDT S: Rip Ames is a 23 year old female who presents at 16 weeks gestation for a routine visit. FELICIA updated at previous ultrasound but not changed in chart. ASSIGNED FELICIA is 11/05/2024. No movements to date. N/V resolved. C/O headaches. Stated not no visual changes. Denies chest pain, sh ortness of breath, vaginal bleeding, leakage of fluid, [...] - RTO 3-4 weeks for anatomy Yakelin Dougherty APRN.CNM [facility]03-21-2025 Miscellaneous Notes* Quick Notes - Yakelin Dougherty APRN.CNM - 05/27/2024 9:52 AM EDT S: Rip Ames is a 23 year old female who presents at 16 weeks gestation for a routine visit. FELICIA updated at previous ultrasound but not changed in chart. ASSIGNED FELICIA is 11/05/2024. No movements to date. N/V resolved. C/O headaches. Stated not no visual changes. Denies chest pain, sh ortness of breath, vaginal bleeding, leakage of fluid, [...] - RTO 3-4 weeks for anatomy Yakelin Dougherty APRN.CNM documented in this encounterOhio State Health System03-21-2025 Instructions* Patient Instructions* Mario Bernal MA - 05/27/2024 9:21 AM EDT SEQUENTIAL SCREENINGS The [facility] offers sequential screenings for women who are interested in screenings for chromosomal abnormalities and certain defects during a . The sequential screen combinesultrasound and blood tests to determine the risk [...] this testing. It will require an appointment withour quality lab technician. This is not an ultrasound performed [...] the above symptoms, contact our office at [phone] and ask to speak with anurse. After hours, you can call doctors registry at [phone] OR call [facility] at [phone] ask to have the doctor furniture rental consultant paged. If you consider this an emergency, dial 9-1-1 or go to your nearest emergency department. NEED HELP? Are you dealing with a violent or abusive relationship? Are you a victim of rape or sexual assult? Call [facility] ([place]) 24 hour Crisis Hotline: 656.179.7134 or 742-032-5351. MANUAL Your Guide to a Healthy manual is now on-line. Visit [email or web address] to download your free copy documented in this encounterOhio State Health System02-21-2025 Progress note* Quick Notes - Vera Bautista MD - 04/29/2024 10:16 AM EST S: Rip Ames is a 23 year [...] ICD9: V22.2, ICD10: Z3A.11 (primary diagnosis) - [id number] PLUS 2. Encounter for supervision of other normal in first trimester - ICD9: V22.1, ICD10: Z34.81 - [id number] PLUS 3. History of vacuum extraction assisted delivery - ICD9: V13.29, ICD10: Z87.59 Vera Bautista MD [facility]02-21-2025 Miscellaneous Notes* Quick Notes - Vera Bautista MD - 04/29/2024 10:16 AM EST S: Rip Ames is a 23 year [...] ICD9: V22.2, ICD10: Z3A.11 (primary diagnosis) - [id number] PLUS 2. Encounter for supervision of other normal in first trimester - ICD9: V22.1, ICD10: Z34.81 - [id number] PLUS 3. History of vacuum extraction assisted delivery - ICD9: V13.29, ICD10: Z87.59 Vera Bautista MD documented in this encounterOhio State Health System02-21-2025 Instructions* Patient Instructions* Mary Whitman MA - 04/29/2024 10:05 AM EST SEQUENTIAL SCREENINGS The [facility] offers sequential screenings for women who are interested in screenings for chromosomal abnormalities and certain defects during a . The sequential screen combinesultrasound and blood tests to determine the risk [...] this testing. It will require an appointment withour quality lab technician. This is not an ultrasound performed [...] the above symptoms, contact our office at [phone] and ask to speak with anurse. After hours, you can call doctors registry at [phone] OR call [facility] at [phone] ask to have the doctor furniture rental consultant paged. If you consider this an emergency, dial 9--1 or go to your nearest emergency department. NEED HELP? Are you dealing with a violent or abusive relationship? Are you a victim of rape or sexual assult? Call [facility] ([place]) 24 hour Crisis Hotline: 163.259.8905 or 382-473-7040. MANUAL Your Guide to a Healthy manual is now on-line. Visit [email or web address] to download your free copy documented in this encounterOhio State Health System01-29-2025 Progress note* Quick Notes - Cass Eid APRN.CNM - 04/06/2024 4:19 PM EST CHANDA-S: Rip Ames is a 23 year [...] and when to call RTO as scheduled Cass Eid APRN.CNM [facility]01-29-2025 Miscellaneous Notes* Quick Notes - Cass Eid APRN.CNM - 04/06/2024 4:19 PM EST CHANDA-S: Rip Ames is a 23 year [...] and when to call RTO as scheduled Cass Eid APRN.CNM documented in this encounterOhio State Health System01-29-2025 Instructions* Patient Instructions* Mary Whitman MA - 04/06/2024 2:39 PM EST SEQUENTIAL SCREENINGS The [facility] offers sequential screenings for women who are interested in screenings for chromosomal abnormalities and certain defects during a . The sequential screen combinesultrasound and blood tests to determine the risk [...] this testing. It will require an appointment withour quality lab technician. This is not an ultrasound performed [...] the above symptoms, contact our office at [phone] and ask to speak with anurse. After hours, you can call doctors registry at [phone] OR call [facility] at [phone] ask to have the doctor furniture rental consultant paged. If you consider this an emergency, dial 9-5 or go to your nearest emergency department. NEED HELP? Are you dealing with a violent or abusive relationship? Are you a victim of rape or sexual assult? Call [facility] ([place]) 24 hour Crisis Hotline: 852.155.2883 or 018-907-7147. MANUAL Your Guide to a Healthy manual is now on-line. Visit [email or web address] to download your free copy documented in this encounterOhio State Health System01-24-2025 Telephone encounter Note * Telephone Encounter - Mario Bernal MA - 04/01/2024 2:25 PM EST Form completed and faxed back to number provided. Patient notified via [employer]. Mario Bernal MA [facility]01-24-2025 Miscellaneous Notes* Telephone Encounter - Mario Bernal MA - 04/01/2024 2:25 PM EST Form completed and faxed back to number provided. Patient notified via [employer]. Mario Bernal MA * Telephone Encounter - Mario Bernal MA - 03/31/2024 10:34 AM EST Received. Completed and on providers desk for signature. Mario Bernal MA * Telephone Encounter - Nano Phan RN - 03/30/2024 10:58 AM EST Paperwork printed and given to Mario Bernal MA. Nano Phan RN documented in this encounterOhio State Health System01-23-2025 Telephone encounter Note * Telephone Encounter - Mario Bernal MA - 03/31/2024 10:34 AM EST Received. Completed and on providers desk for signature. Mario Bernal MA [facility]01-22-2025 Telephone encounter Note* Telephone Encounter - Nano Phan RN - 03/30/2024 10:58 AM EST Paperwork printed and given to Mario Bernal MA. Nano Phan RN [facility]01-21-2025 Note* Addendum Note - Cass Eid APRN.CNM - 03/29/2024 4:36 PM ESTAddended by: CASS EID on: 03/29/2024 04:36 PM Modules accepted: Orders [facility]01-21-2025 Miscellaneous Notes* Addendum Note - Cass Eid APRN.CNM - 03/29/2024 4:36 PM ESTAddended by: CASS EID on: 03/29/2024 04:36 PM Modules accepted: Orders documented in this encounterOhio State Health System01-21-2025 Telephone encounter Note * Telephone Encounter - Cass Eid APRN.CNM - 03/29/2024 10:30 AM EST Ok for work letter. Due to her N/V will treat BV after 12 weeks or she is having less Nausea. Miguel, Cass Eid APRN.CNM [facility]01-21-2025 Miscellaneous Notes* Telephone Encounter - Cass Eid APRN.CNM - 03/29/2024 10:30 AM EST Ok for work letter. Due to her N/V will treat BV after 12 weeks or she is having less Nausea. Cass Rivera APRN.CNM * Telephone Encounter - Vera Gramajo RN - 03/29/2024 9:36 AM EST 7w3d See below. Patient also viewed her +BV results. Advised that BV is not typically treated until the second trimester, but would verify this with CHANDA. Vera Gramajo RN documented in this encounterOhio State Health System01-21-2025 Telephone encounter Note * Telephone Encounter - Vera Gramajo RN - 03/29/2024 9:36 AM EST 7w3d See below. Patient also viewed her +BV results. Advised that BV is not typically treated until the second trimester, but would verify this with CHANDA. Vera Gramajo RN [facility]01-16-2025 NoteHNO ID: [id number] Author: CASS EID APRN.JANNIE Service: ? Author Type: Call Center Assistant Type: Progress Notes Filed: 03/29/2024 12:52 Note Text: INITIAL OB ASSESSMENT HPI: Rip is a 23 year old White here to establish Obstetrical Care. Patient's last menstrual period was 01/29/2024 (approximate). from OB Dating Form. was unplanned but accepted Complaints: Severe nausea/vomiting Went to [place] [facility] 03/18/24 Dx Norovirus- was given Phenergan [...] No Are you currently employed? Yes - [employer] Depression/Anxiety Screening: denies symptoms of depression. OB [...] Partner: Name: Giancarlo Garcia Age: 26 Occupation: [employer] Gender: Male PAST MEDICAL HISTORY Diagnosis [...] No current facility-administered medic (more content not included)...[facility]01-16-2025 History of Present illness Narrative* Cass Eid APRN.JANNIE - 03/24/2024 12:54 PM EST INITIAL OB ASSESSMENT HPI: Rip is a 23 year old White here to establish Obstetrical Care. Patient's last menstrual period was 01/29/2024 (approximate). from OB Dating Form. was unplanned but accepted Complaints: Severe nausea/vomiting Went to [place] [facility] 03/18/24 Dx Norovirus- was given Phenergan .Now nausea is subtle. Taking phenergan, mildly effective. [...] No Are you currently employed? Yes - [employer] Depression/Anxiety Screening: denies symptoms of depression. OB [...] Partner: Name: Giancarlo Garcia Age: 26 Occupation: [employer] Gender: Male PAST MEDICAL HISTORY Diagnosis [...] IUD Inserted in office (Patient not taking: Reportedon 03/24/2024) 1 Each 0 No current facility-administered [...] discussed with the Patient or Patient's Authorized Charger Operator Helper. As applicable, any other physician, advance practice provider, medical student, or other health professional student that will be observing or involved in the sensitive examination for educational or training purposes was discussed with the Patient or Authorized Charger Operator Helper. The Patient or Authorized Charger Operator Helper has agreed to proceed with the sensitive [...] Your guide to a health and the Geophysical Engineer. Discussed hemoglobin electrophoresis. Patient: Accepts Reviewed midwifery and dye weigher services that are available. 2) Screening: Hemoglobin [...] up in 4 weeks or sooner prn. Cass Eid APRN.CNM documented in this encounterOhio State Health System01-16-2025 Instructions* Patient Instructions* Cass Eid APRN.CNM - 03/24/2024 12:54 PM EST Please select the following link to access the [facility] Your Guide to a Healthy . [email or web address] Ayana Capsule 250mg by mouth once daily [...] morning sickness but can occur all day longor at any time in the day or [...] history of motion sickness or stomach problems beforeyou got may be another risk factor. Nausea [...] carbohydrates, such as potatoes, noodles, rice, or toast.AmericanCollege of Nurse-Midwives www.sharewithwomen.org Do not lie down right after eating. Some women say dairy products like yogurt are helpful, but this does not work for every woman. vitamins may make your nausea worse. If you take your vitamin at night or with food, it may not make you nauseated. Your provider can also help you find a vitamin that does not makeyour nausea worse. Vitamins that do not have [...] is right for you. There are both whrc-uak-iukhvvd and prescription medicines that can be used if your nausea and vomiting are severe. Weqq-Yao-Olxcnzp Medication Xmai-alg-cxinrrf medications for motion sickness should not be taken during unless recommended by your health care provider. Many women have found that vitamin B6 is helpful for making mildnausea better. Vitamin B6 does not help stop vomiting. Your health care provider can help you choose the dose and how often to take vitamin B6 if you want to try it. Prescription Medication If your nausea and vomiting continues after trying lifestyle and diet changes and jcso-foi-jktndgs medications or you are vomiting frequently, you may need a prescription medication. There are several different prescription medicines that have been studied and found to be safe for you and your baby. Your health care provider can talk with you about these medicines. For More Information [facility] N[facility]a [facility]om[facility]pl[facility] [email or web address] Ondansetron (Zofran ) October 08, 2019 This [...] to help control my nausea and vomiting? Xishiwang.[employer] has a helpful fact sheet on nausea in with recommendations. You can review it here: https://BEKIZ.org/fact-sheets/ansgiz-unkekrlh-yqswugxas-nvp/pdf/. Also, eating small meals often, drinking plenty [...] did not find that miscarriage happened more oftenfor those who reported that they used ondansetron in the first trimester of . Does taking ondansetron increase the chance of defects? Every starts out with a 3-5% chance of having a defect. This is called the background risk. Most studies have found no increased chance for defects among thousands of people whoused ondansetron in the first trimester of . [...] taking ondansetron. In severe cases, this could becomean abnormal heart rhythm known as Torsades de [...] may be considered, especially while a or preterminfant. Be sure to talk to your healthcare [...] . For more information, please see the MotherInnoCyte fact sheet Paternal Exposures at https://mothertobaby.org/fact-sheets/uacmguxw-cotkjlgdd-lskexgmuy/pdf/. documented in this encounterOhio State Health System01-13-2025 Telephone encounter Note * Telephone Encounter - Kim Hylton RN - 03/21/2024 6:52 PM EST S: pt significant other (S/O) calling [facility] with appt request B: LMP 01/30 A: LMP 01/30. Has not been seen yet. Started 2 nights ago with vomiting and diarrhea, still going on. Last 2 weeks has been nauseous, tired, loss of appetite. Given promethazine in ER. Pt S/O callingto see if she can be seen sooner than 03/28 she already had scheduled at [facility]. R: RN looked at both [place] and [facility] appts and unable to find any IPV or SIGN ARTIST sooner than 03/28, RN advised pt S/O to contact her previous office at [facility] in the morning to see if there are any cancellations, pt S/O voiced understanding. Reason for Disposition Protocols used: Menstrual Period - Missed or Xwhe-PAXKZ-DI [facility] [id number] Miscellaneous Notes* Telephone Encounter - Kim Hylton RN - 03/21/2024 6:52 PM EST S: pt significant other (S/O) calling [facility] with appt request B: LMP 01/30 A: LMP 01/30. Has not been seen yet. Started 2 nights ago with vomiting and diarrhea, still going on. Last 2 weeks has been nauseous, tired, loss of appetite. Given promethazine in ER. Pt S/O callingto see if she can be seen sooner than 03/28 she already had scheduled at [facility]. R: RN looked at both [place] and [facility] appts and unable to find any IPV or SIGN ARTIST sooner than 03/28, RN advised pt S/O to contact her previous office at [facility] in the morning to see if there are any cancellations, pt S/O voiced understanding. Reason for Disposition Protocols used: Menstrual Period - Missed or Yqto-ZBWVG-JD documented in this encounterSEast Ohio Regional [id number] Hospital Discharge instructions* Discharge Instructions* Amee Banks PA-C - 03/18/2024 10:47 PM EST You are seen today for nausea vomiting . You also had an elevated blood pressure reading on arrival, which completely resolved while in the ER after fluids. Please take the Phenergan as prescribed, follow-up with your LITHOGRAPHIC PLATE MAKER APPRENTICE. Return to the ER with worsening. In the medical field, there is always a level of diagnostic uncertainty, even if this uncertainty is low. For this reason, it is important to immediately return to the emergency department if you have any new symptoms, worsening symptoms, change of symptoms, or if you have any other concerns. We would be happy to re- evaluate you. Otherwise, please take your medications as prescribed and follow-upas recommended. documented in this [facility]01-10-2025 Emergency department Note* Amee Banks PA-C - 03/18/2024 8:33 PM EST EMERGENCY DEPARTMENT ENCOUNTER Pt Name: Rip Ames [...] morning sickness. Patient states that she is currentlyG2, P1, with follow-up with an LITHOGRAPHIC PLATE MAKER APPRENTICE on the of this month, but has been unable to see them. Called them today because she is been having nausea vomiting all week in the morning, and then layingaround in bed all day because she has been feeling well. They told her that they were unable to send her any other medications but she has been seen by their office since 2019, recommended she come to the ER for further evaluation management. She has already tried B6, as well as some Unisom. She sta kory that this has been helping, she denies any urinary symptoms. No vaginal bleeding no vaginal discharge. No abdominal pain. States she just had this recurrent nausea, and dry heaving. She states heis not able to eat or drink much [...] indication of chorionic carcinoma, hydatiform mole, or multiplepregnancy. Decreasing hCG concentrations indicate threatened or missed , recent terminationof , ectopic , gestosis or intrauterine . Hanh- and postmenopausal females may have detectable hCG concentrations (< or = to 14 mIU/mL) due to pituitary production of hCG. Serum follicle-stimulating hormone measurement may aid in ruling-out in this population. Cutoffs of greater than 20 to 45 mIU/mL have been suggested and are method dependent. False-elevations(called phantom human chorionic gonadotropin: hCG) may occur with patients who have human antianimal or heterophilic antibodies. Some specimens may not dilute linearly due to abnormal forms of hCG. Elevated hCG concentrations not associated with are found in patients with other diseases such as tumors of the germ cells, ovaries, bladder, pancreas, stomach, lungs, and liver. This test isnot intended to detect or monitor tumors or gestational trophoblastic disease. All other labs were within normal range or not returned as of this dictation. EMERGENCY DEPARTMENT COURSE and DIFFERENTIAL DIAGNOSIS/MDM: Vitals: Vitals: 03/18/24203503/18/241 BP: (!) 142/79 112/56 Pulse: 86 80 [...] given intramuscular Phenergan, IV fluid, as well asp.o. Phenergan. Other medications considered Zofran IV ordered, the patient feeling much better. Initial workup includes hCG quant, CMP, CBC ordered. Other workup considerations included-ultrasound, but at this time patient possibly 7 weeks , she has no lower abdominal no vaginal bleeding no vaginal discharge, so ultrasound was not obtained. Upon reassessment ujhkezh-dimb-hiqgbfxwv in no acute distress. Lab workup results [...] for further evaluation management. Will follow-up with LITHOGRAPHIC PLATE MAKER APPRENTICE within the next 1 week. Alternate disposition considered-admission patient had intractable nausea vomiting. Shared decisionmaking-none Prescriptions provided-see above Discussed ED return precautions, recommended consulting their primary doctor or returning to the EDif there are any new or worsening of symptoms, particularly- see above Jlxmck-nw-RTL in one week. LITHOGRAPHIC PLATE MAKER APPRENTICE within 1 week. PROCEDURES: Unless otherwise noted [...] are any questions or concerns please feel freeto contact the dictating provider for clarification.) Amee Banks PA-C (electronically signed) Emergency Medicine Provider Amee Banks PA-C 03/19/24 0030 * Court Aguilar RN - 03/18/2024 8:33 PM EST PT to ED ambulatory through triage due to nausea with dry heaving. PT states has been in bed for about a week. PT states she has been taking B6 and Unisom without relief. PT states she has called OB for zofran but they are unable to see her yet. documented in this [facility]01-10-2025 Emergency department Triage note* Court Aguilar RN - 03/18/2024 8:33 PM EST PT to ED ambulatory through triage due to nausea with dry heaving. PT states has been in bed for about a week. PT states she has been taking B6 and Unisom without relief. PT states she has called OB for zofran but they are unable to see her yet. [facility] [id number] Physician Emergency department Note* Amee Banks PA-C - 03/18/2024 8:33 PM EST EMERGENCY DEPARTMENT ENCOUNTER Pt Name: Rip Ames [...] morning sickness. Patient states that she is currentlyG2, P1, with follow-up with an LITHOGRAPHIC PLATE MAKER APPRENTICE on the of this month, but has been unable to see them. Called them today because she is been having nausea vomiting all week in the morning, and then layingaround in bed all day because she has been feeling well. They told her that they were unable to send her any other medications but she has been seen by their office since 2019, recommended she come to the ER for further evaluation management. She has already tried B6, as well as some Unisom. She sta kory that this has been helping, she denies any urinary symptoms. No vaginal bleeding no vaginal discharge. No abdominal pain. States she just had this recurrent nausea, and dry heaving. She states heis not able to eat or drink much [...] indication of chorionic carcinoma, hydatiform mole, or multiplepregnancy. Decreasing hCG concentrations indicate threatened or missed , recent terminationof , ectopic , gestosis or intrauterine . Hanh- and postmenopausal females may have detectable hCG concentrations (< or = to 14 mIU/mL) due to pituitary production of hCG. Serum follicle-stimulating hormone measurement may aid in ruling-out in this population. Cutoffs of greater than 20 to 45 mIU/mL have been suggested and are method dependent. False-elevations(called phantom human chorionic gonadotropin: hCG) may occur with patients who have human antianimal or heterophilic antibodies. Some specimens may not dilute linearly due to abnormal forms of hCG. Elevated hCG concentrations not associated with are found in patients with other diseases such as tumors of the germ cells, ovaries, bladder, pancreas, stomach, lungs, and liver. This test isnot intended to detect or monitor tumors or [...] given intramuscular Phenergan, IV fluid, as well asp.o. Phenergan. Other medications considered Zofran IV ordered, the patient feeling much better. Initial workup includes hCG quant, CMP, CBC ordered. Other workup considerations included-ultrasound, but at this time patient possibly 7 weeks , she has no lower abdominal no vaginal bleeding no vaginal discharge, so ultrasound was not obtained. Upon reassessment ovvpjmu-mqtg-fkrxeijed in no acute distress. Lab workup results [...] for further evaluation management. Will follow-up with LITHOGRAPHIC PLATE MAKER APPRENTICE within the next 1 week. Alternate disposition considered-admission patient had intractable nausea vomiting. Shared decisionmaking-none Prescriptions provided-see above Discussed ED return precautions, recommended consulting their primary doctor or returning to the EDif there are any new or worsening of symptoms, particularly- see above Cztref-oo-LCV in one week. LITHOGRAPHIC PLATE MAKER APPRENTICE within 1 week. PROCEDURES: Unless otherwise noted [...] are any questions or concerns please feel freeto contact the dictating provider for clarification.) Amee Banks PA-C (electronically signed) Emergency Medicine Provider Amee Banks PA-C 03/19/24 0030 [facility] [id number] Telephone encounter Note* Telephone Encounter - Chelsie Granger RN - 03/18/2024 12:17 PM EST Pt notified and voiced understanding. Chelsie Granger RN [facility]01-10-[facility] Miscellaneous Notes* Telephone Encounter - Chelsie Granger RN - 03/18/2024 12:17 PM EST Pt notified and voiced understanding. Chelsie Granger RN * Telephone Encounter - Yakelin Dougherty APRN.JANNIE - 03/18/2024 11:50 AM EST Patient will need to give time for the vitamin B and Unisom to get into system. She will need seen in ED prior to NOB if unable to keep food or liquids down for 24 hours. Yakelin Dougherty APRN.CNM * Telephone Encounter - Chelly Magaña RN - 03/18/2024 8:16 AM EST LMP 01/29/25 - 6w6d Calling c/o nausea. [...] advise. Chelly Magaña RN documented in this encounterOhio State Health System01-10-2025 Telephone encounter Note * Telephone Encounter - Yakelin Dougherty APRN.CNM - 03/18/2024 11:50 AM EST Patient will need to give time for the vitamin B and Unisom to get into system. She will need seen in ED prior to NOB if unable to keep food or liquids down for 24 hours. Yakelin Dougherty APRN.CNM [facility] Work Phone: [phone] 200-183701-10-2025 Telephone encounter Note* Telephone Encounter - Chelly Magaña RN - 03/18/2024 8:16 AM EST LMP 01/29/25 - 6w6d Calling c/o nausea. [...] for 03/28/24. Please advise. Chelly Magaña RN [facility]03-28-2023 History of Present illness Narrative* Fatoumata BryanELOISA - SIGN ARTIST - 06/03/2022 10:20 AM EDT Images from the original note were not included. [facility] [address] [facility] [address] Dept: [phone] Dept Loc: [phone] Subjective Rip Ames is a 22 y.o. [...] with complaints of ear fullness to right ear- expressing concern for cerumen impaction. Patient states she has had to have ears irrigated previously. Patient states she believes she has impaction today. Patient states her left ear feels okay. Patient states she didleave work and will need a note to [...] be visualized after irrigation-no apparent signs of infection-erythema/bulging/injection. Patient advised to follow-up with PCP for [...] aremis-transcribed.) JOSE Silva 06/03/22 [facility] in [facility]ad[facility]* Diagnosis Impacted cerumen of right ear- Primary Impacted cerumen documented in this encounter [facility] note* Diagnosis Nausea and vomiting during - Primary Elevated blood pressure reading Elevated blood pressure reading without diagnosis of hypertension documented in this encounter [facility] note* Diagnosis Encounter for supervision of normal in multigravida- Primary with uncertain dates in first trimester History of vacuum extraction assisted delivery Other postprocedural status Supervision of other normal Nausea and vomiting in Unspecified vomiting of , unspecified as to episode of care documented in this encounter [facility] note* Diagnosis Supervision of other normal - Primary Bleeding in early Unspecified hemorrhage in early , unspecified as to episode of care 8 weeks gestation of state, incidental documented in this encounter [facility] note* Diagnosis 11 weeks gestation of - Primary state, incidental Encounter for supervision of other normal in first trimester History of vacuum extraction assisted delivery Other postprocedural status documented in this encounter [facility] note* Diagnosis Encounter for screening for malformation using ultrasound- Primary 12 weeks gestation of state, incidental documented in this encounter [facility] note* Diagnosis Encounter for supervision of other normal in second trimester- Primary History of vacuum extraction assisted delivery Other postprocedural status 15 weeks gestation of state, incidental Nausea and vomiting in Unspecified vomiting of , unspecified as to episode of care headache in second trimester documented in this encounter [facility] note* Diagnosis Supervision of high risk in second trimester (HCC)- Primary Unspecified high-risk 20 weeks gestation of (HCC) state, incidental History of vacuum extraction assisted delivery Other postprocedural status Encounter for supervision of normal in multigravida (HCC) with uncertain dates in first trimester (HCC) documented in this encounter [facility] note* Diagnosis Encounter for anatomic survey (HCC)- Primary Encounter for anatomic survey 20 weeks gestation of (HCC) state, incidental documented in this encounter [facility]* Diagnosis Screening for diabetes mellitus- Primary 24 weeks gestation of (HCC) state, incidental Supervision of high risk in second trimester (HCC) Unspecified high-risk documented [facility] this encounter [facility]* Diagnosis Supervision of high risk in third trimester (HCC)- Primary Unspecified high-risk 28 weeks gestation of ([facility]) state, incidental History of vacuum extraction assisted delivery Other postprocedural status History of oligohydramnios documented in this encounter [facility]* Diagnosis Elevated glucose tolerance test- Primary Impaired glucose tolerance test documented in this encounter [facility]* Diagnosis Supervision of high risk in third trimester (HCC)- Primary Unspecified high-risk History of vacuum extraction assisted delivery Other postprocedural status History of oligohydramnios 30 weeks gestation of ([facility]) state, incidental documented in this encounter [facility]* Diagnosis Supervision of high risk in third trimester (HCC)- Primary Unspecified high-risk 33 weeks gestation of ([facility]) state, incidental Uterine size-date discrepancy, third trimester ([facility]) documented in this encounter [facility] noteNo assessment information availableWZanesville City Hospital Work Phone: Evaluation note* Diagnosis 37 weeks gestation of (HCC)- Primary state, incidental Encounter for supervision of normal in multigravida ([facility]) documented in this encounter [facility]* Diagnosis Elevated glucose tolerance test- Primary Impaired glucose tolerance test documented in this encounter [facility]* Diagnosis 38 weeks gestation of (HCC)- Primary state, incidental Encounter for supervision of normal in multigravida ([facility]) documented in this encounter [facility] SystemInstructions* Attachments The following attachments cannot be sent through Care Everywhere. * Ear Wax Impaction Discharge Instructions (Armenian) documented in this encounterSCenterville for referral (narrative)* Diagnostic Procedure Only (Routine) - Closed Specialty Diagnoses / Procedures Referred By Contmary t Referred To Contact [facility] Diagnoses Encounter for supervision of normal in multigravida with uncertain dates in first trimester Procedures OBSTETRIC ULTRASOUND WHI US PREG UTERUS AFTER 1ST TRIMEST GESTATION Cass Eid APRN.JANNIE [address] [place] [address] [facility] [address] [place] [address] Referral ID Status Reason Start Date Expiration Date V isits Requested Visits Authorized [id number] Closed Auto-Generate d Referral 03/28/2024 03/28/2025 1 1 * Diagnostic Procedure Only (Routine) - Pending Review Specialty Diagnoses / Procedures Referred By Javier steinberg Referred To Contact [facility] Diagnoses Encounter for supervision of normal in multigravida with uncertain dates in first trimester Procedures OBSTETRIC ULTRASOUND WHI US PREG UTERUS AFTER 1ST TRIMEST GESTATION Cass Eid APRN.CNM [address] [place] [address] [facility] [address] [place] [address] Referral ID Status Reason Start Date Expiration Date Visits Requested Visits Authorized [id number] Pending Review Auto-Generat ed Referral 03/28/2024 03/28/2025 1 1 [facility] for referral (narrative)No reason for referral information availableWZanesville City Hospital Work Phone: Summary Purpose Family History No Family History Records FoundNo Family History Records FoundNo Family History Records FoundNo Family History Records FoundNo Family History Records Found Advance Directives No Advanced Directives Records FoundNo Advanced Directives Records FoundNo Advanced Directives Records FoundNo Advanced Directives Records FoundNo Advanced Directives Records Found Chief Complaint and Reason for Visit Chief Complaint Admit Date R/O PRE E October 16, 2024 2: 05pm Chief Complaint Admit Date R/O PRE E October 16, 2024 2: 05pm R\O LABOR October 27, 2024 7: 11pm Reason for Visit Admit Date 37 weeks gestation of October 072024 2:05pm Headache in , antepartum October 16, 2024 2:05pm Additional Source Comments INFORMATION SOURCE (unrecogn ized section and content) DATE CREATED AUTHOR 01/24/2018 [facility] DATE CREATED AUTHOR AUTHOR'S ORGANIZ ATION 01/24/2018 [facility] DATE CREATED AUTHOR AUTHOR'S ORGANIZ ATION 03/23/2024 [facility] DATE CREATED AUTHOR AUTHOR'S ORGANIZ ATION 10/29/2024 [facility] DATE CREATED AUTHOR AUTHOR'S ORGANIZ ATION 11/01/2024 [facility] Reason for Visit (unrecogniz ed section [...] Referred By Javier steinberg 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 Encounter for supervision of normal in multigravida 1ST OB LMP 01/30/2024 Procedures [facility] OB 1ST EXAM Cass Eid, ELOISA.CNM [address] [place] [address] [employer] [address] [place] [address] Referral ID Status Reason Start Date Expiration Date V isits Requested Visits Authorized [id number] Denied Financial Clearance Required - [employer] 03/28/2024 06/26/2024 1 0 Reason Onset Date Comments Care 04/06/2024 Specialty Diagnoses / Procedures Referred By Contac t 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 [place] discharge Procedures [place] Cass Eid APRN.CNM [address] [place] [address] [employer] [address] [place] [address] Referral ID Status Reason Start Date Expiration Date V isits Requested Visits Authorized [id number] Closed Financial Clearance Required - [employer] Patient Cleared - Qualified HCAP/FA 04/05/2024 07/04/2024 1 1 Reason Onset Date Comments Care 04/29/2024 Specialty Diagnoses / Procedures Referred By Contac t Referred To Contact Diagnoses Procedures OFFICE VISIT, EST PT., LEVEL 2 TC EXTERNAL-NON [facility] [place] [place] [address] Referral ID Status Reason Start Date Expiration Date V isits Requested Visits Authorized [id number] Closed Patient Cleared - Qualified 100% FAS 03/07/2024 06/05/2024 99 99 Reason Comments US Specialty Diagnoses / Procedures Referred By Contac t Referred To Contact [facility] Diagnoses Encounter for supervision of normal in multigravida with uncertain dates in first trimester Procedures OBSTETRIC ULTRASOUND WHI US PREG UTERUS AFTER 1ST TRIMEST GESTATION Cass Eid APRN.CNM [address] [place] [address] Phone: tel: fax:[phone] [place] [id number] Referral ID Status Reason Start Date Expiration Date Visits Requested Visits Authorized [id number] Authorized Auto-Generated Referral OON Notification Letter Patient Cleared - Qualified HCAP/FA 03/28/2025 99 99 Reason Onset Date Comments Care 05/27/2024 Reason Onset Date Comments Care 06/22/2024 Specialty Diagnoses / Procedures Referred By Contac t Referred To Contact [facility] Diagnoses Encounter for supervision of normal in multigravida (HCC) with uncertain dates in first trimester (HCC) Procedures OBSTETRIC ULTRASOUND WHI US PREG UTERUS AFTER 1ST TRIMEST GESTATION Cass Eid APRN.CNM [address] [place] [address] Phone: tel: fax:[phone] [address] Referral ID Status Reason Start Date Expiration Date V isits Requested Visits Authorized [id number] Closed Auto-Generate d Referral 03/28/2024 03/28/2025 1 1 Reason Onset Date Comments Care 07/20/2024 Reason Onset Date Comments Care 08/18/2024 Reason Comments Results Reason Onset Date Comments Care 08/31/2024 Reason Onset Date Comments Care 09/19/2024 Reason Onset Date Comments Care 10/19/2024 Reason Onset Date Comments Population Health Navigation Outreach 10/25/2024 to PCP/OB Care Teams (unrecognized sec tion and content) [place] Relationship Specialty Start Date End Date Lia Posada [address] [place] [address] PCP - General 06/25/20 Team Status: Active Member Role/Relationship Status Dates Dr. Lia Posada MD Family Provider Active No Primary Care Physician Primary Care Provider Active Team Status: Inactive Member Role/Relationship Status Dates No Primary Care Physician Primary Care Provider Active Start: October 16, 2024 End: October 16, 2024 Cass Eid CNM Attending Provider Active St art: October 16, 2024 End: October 16, 2024 Cass Eid CNM Referring Provider Active St art: October 16, 2024 End: October 16, 2024 Team Status: Inactive Member Role/Relationship Status Dates No Primary Care Physician Primary Care Provider Active Start: October 27, 2024 End: October 27, 2024 Dr. Thania Samaniego , DO Attending Provider Active Start: October 27, 2024 End: October 27, 2024 Source Comments (unrecognize d section and content) In the event this informatio n is protected by the Federal Confidentiality of Alcohol and Drug Abuse Patient Records regulations: The Federal rules restrict any use of the information to criminally investigate or prosecute any alcohol or drug abuse patient.[facility] SystemIn the event this information is protected by the Federal Confidentiality of Alcohol and Drug Abuse Patient Records regulations: The Federal rules restrict any use of the information to criminally investigate or prosecute any alcohol or drug abuse patient.[facility] SystemIn the event this information is protected by the Federal Confidentiality of Alcohol and Drug Abuse Patient Records regulations: The Federal rules restrict any use of the information to criminally investigate or prosecute any alcohol or drug abuse patient.[facility] SystemIn the event this information is protected by the Federal Confidentiality of Alcohol and Drug Abuse Patient Records regulations: The Federal rules restrict any use of the information to criminally investigate or prosecute any alcohol or drug abuse patient.[facility] SystemIn the event this information is protected by the Federal Confidentiality of Alcohol and Drug Abuse Patient Records regulations: The Federal rules restrict any use of the information to criminally investigate or prosecute any alcohol or drug abuse patient.[facility] SystemIn the event this information is protected by the Federal Confidentiality of Alcohol and Drug Abuse Patient Records regulations: The Federal rules restrict any use of the information to criminally investigate or prosecute any alcohol or drug abuse patient.[facility] SystemIn the event this information is protected by the Federal Confidentiality of Alcohol and Drug Abuse Patient Records regulations: The Federal rules restrict any use of the information to criminally investigate or prosecute any alcohol or drug abuse patient.[facility] SystemIn the event this information is protected by the Federal Confidentiality of Alcohol and Drug Abuse Patient Records regulations: The Federal rules restrict any use of the information to criminally investigate or prosecute any alcohol or drug abuse patient.[facility] SystemIn the event this information is protected by the Federal Confidentiality of Alcohol and Drug Abuse Patient Records regulations: The Federal rules restrict any use of the information to criminally investigate or prosecute any alcohol or drug abuse patient.[facility] SystemIn the event this information is protected by the Federal Confidentiality of Alcohol and Drug Abuse Patient Records regulations: The Federal rules restrict any use of the information to criminally investigate or prosecute any alcohol or drug abuse patient.[facility] SystemIn the event this information is protected by the Federal Confidentiality of Alcohol and Drug Abuse Patient Records regulations: The Federal rules restrict any use of the information to criminally investigate or prosecute any alcohol or drug abuse patient.[facility] SystemIn the event this information is protected by the Federal Confidentiality of Alcohol and Drug Abuse Patient Records regulations: The Federal rules restrict any use of the information to criminally investigate or prosecute any alcohol or drug abuse patient.[facility] SystemIn the event this information is protected by the Federal Confidentiality of Alcohol and Drug Abuse Patient Records regulations: The Federal rules restrict any use of the information to criminally investigate or prosecute any alcohol or drug abuse patient.[facility] SystemIn the event this information is protected by the Federal Confidentiality of Alcohol and Drug Abuse Patient Records regulations: The Federal rules restrict any use of the information to criminally investigate or prosecute any alcohol or drug abuse patient.[facility] SystemIn the event this information is protected by the Federal Confidentiality of Alcohol and Drug Abuse Patient Records regulations: The Federal rules restrict any use of the information to criminally investigate or prosecute any alcohol or drug abuse patient.[facility] SystemIn the event this information is protected by the Federal Confidentiality of Alcohol and Drug Abuse Patient Records regulations: The Federal rules restrict any use of the information to criminally investigate or prosecute any alcohol or drug abuse patient.[facility] SystemIn the event this information is protected by the Federal Confidentiality of Alcohol and Drug Abuse Patient Records regulations: The Federal rules restrict any use of the information to criminally investigate or prosecute any alcohol or drug abuse patient.[facility] SystemIn the event this information is protected by the Federal Confidentiality of Alcohol and Drug Abuse Patient Records regulations: The Federal rules restrict any use of the information to criminally investigate or prosecute any alcohol or drug abuse patient.[facility] SystemIn the event this information is protected by the Federal Confidentiality of Alcohol and Drug Abuse Patient Records regulations: The Federal rules restrict any use of the information to criminally investigate or prosecute any alcohol or drug abuse patient.[facility] SystemIn the event this information is protected by the Federal Confidentiality of Alcohol and Drug Abuse Patient Records regulations: The Federal rules restrict any use of the information to criminally investigate or prosecute any alcohol or drug abuse patient.[facility] SystemIn the event this information is protected by the Federal Confidentiality of Alcohol and Drug Abuse Patient Records regulations: The Federal rules restrict any use of the information to criminally investigate or prosecute any alcohol or drug abuse patient.[facility] SystemIn the event this information is protected by the Federal Confidentiality of Alcohol and Drug Abuse Patient Records regulations: The Federal rules restrict any use of the information to criminally investigate or prosecute any alcohol or drug abuse patient.[facility] SystemIn the event this information is protected by the Federal Confidentiality of Alcohol and Drug Abuse Patient Records regulations: The Federal rules restrict any use of the information to criminally investigate or prosecute any alcohol or drug abuse patient.[facility] Scheduled Active and Recently Administ ered Medications [...] Only to be given as IM injection. Goals (unrecognized section and content) Goals may be documented in a n alternate sectionGoals may be documented in an alternate section FOR RECORDS PERTAINING TO PATIENTS WHO ARE [...] BE BASED ON THE PRIMARY CLINICAL RECORDS. [employer] provides no warranty or guarantee of the accuracy or completeness of information in this document.
[2024-11-01] MEDS: Oxytocin 15 Units/NS 250ml 15 UNITS/250 ML IV.SOLN 2 UNITS IV (07:50)
[2024-11-01] MEDS: Lactated Ringers 1,000 ML 50 ML IV (07:50)
[2024-11-01 08:15] LABS: Hematocrit 35.0 % (37-47); Hemoglobin 11.7 g/dL (12.0-15.0); Immature Granulocytes Count 0.060 X10^3/uL (0.0-0.0); Mean Corp Hgb Conc 33.4 g/dL (32-36); Mean Corpuscular Volume 81.0 fL (81-99); Mean Platelet Vol. 11.2 fl (6.2-12.0); NRBC Flagged by Analyzer 0 % (0-5); Platelet Count 201 K/mm3 (150-450); RBC Distribution Width CV 12.8 % (11.6-14.6); RBC Distribution Width SD 37.3 fl (35.1-43.9); Red Blood Count 4.32 M/mm3 (4.2-5.4); White Blood Count 8.0 K/mm3 (4.4-11.0)
--- NOTE | 2024-11-01 08:40 | HP.PCM.OB_ITS ---
HPI - General General Date of Admission: 11/01/24 Date of Service: 11/01/24 HPI Narrative RIP AMES, is a 24 F who presents for induction. Maternal Data Information FELICIA Calculator Estimated Delivery Date Method Current WG Current Estimate 11/05/24 Manual 39w 3d PFSH PFSH Medical History no medical history Home Medications ?Medication ?Instructions ?Recorded ?Last Taken ?Type vits no.130-ferrous fum 1 ea PO DAILY pregnan cy 07/10/15 10/31/24 History 27 mg iron-folic acid 800 mcg tablet ( Vitamin) aspirin 81 mg chewable tablet 1 tab PO DAILY 10/16/24 10/31/24 History (Karly Chewable Low Dose Aspirin) Allergy/AdvReac Type Severity Reaction Status Date / Time amoxicillin AdvReac Hives Verified 11/01/24 07:41 Surgical History no surgical history Social History Smoking Status: Never smoker History Elective abortions Hx Para 1 Spontaneous abortions Hx # Term Pregnancies Ectopic pregnancies Hx # Pregnancies Multiple births # of living children NST FHR Rate Baby A Baseline: 145 Variability:: Moderate Accelerations:: 15 x 15 Decelerations:: None Uterine Activity:: Q 3-4 min Vital Signs Vital Signs Vital Signs: 11/01/24 07:32 11/01/24 07:32 11/01/24 07:32 Temperature Temperature Source Pulse Rate 106 H Respiratory Rate 16 Blood Pressure 135/75 H BP Systolic 135 BP Diastolic 75 Pulse Ox 11/01/24 07:33 11/01/24 07:33 11/01/24 07:59 Temperature Temperature Source Temporal Pulse Rate 106 H Respiratory Rate Blood Pressure BP Systolic BP Diastolic Pulse Ox 98 11/01/24 07:59 Temperature 97.6 F L Temperature Source Pulse Rate Respiratory Rate Blood Pressure BP Systolic BP Diastolic Pulse Ox Weight Weight: 157 lb 6 oz Body Mass Index (BMI) 27.0 Physical Exam Const alert, oriented x3 and no apparent distress GI non-tender, non-distended and no masses Inspection: gravid external exam normal Narrative: cvx - 4/80/-2, AROM clear fluid Labs Labs Labs: Blood Type O POSITIVE Antibody Screen NEGATIVE Hct 35.0 % (37-47) L Hgb 11.7 g/dL (12.0-15.0) L Syphilis Total Ab Pending Rhogam given: No Assessment & Plan (1) 39 weeks gestation of : PLAN: Plan Admit to L&D Elective IOL - on pitocin & s/p AROM GBS negative Pain - epdidural as desired EFW - less than 4500g and patient with adequate pelvis Routine care
[2024-11-01] MEDS: Lactated Ringers 1,000 ML 999 ML IV (08:57)
[2024-11-01 09:03] LABS: Syphilis Antibodies Nonreactive (Nonreactive)
[2024-11-01] MEDS: fentaNYL-bupivacaine (epidural) 100 ML BAG EPIDURAL (09:32)
--- NOTE | 2024-11-01 13:15 | EX.PCM.OBVAG ---
Maternal Data Information FELICIA Calculator Estimated Delivery Date Method Current WG Current Estimate 11/05/24 Manual 39w 3d Vaginal Delivery Maternal Presentation Maternal Presentation: Elective Induction Type of Induction: Pitocin Vaginal Delivery Information Procedure Performed: Spontaneous Vaginal Delivery Surgeon/Practitioner: Edin Swann Date of Procedure: 11/01/24 Pre-Procedure Diagnosis: Maternal request for elective induction Post-Procedure Diagnosis: Same Type of anesthesia: Epidural Estimated Blood Loss: 350ml Findings Description of procedure: Called to room when patient C/C/+2. She was prepped & draped. Patient pushed well to deliver the head. head was gently guided to allow delivery of anterior and posterior shoulders. No excess traction placed on the head. The body delivered. 3VC clamped and cut in delayed fashion. Placenta delivered with gentle traction and good uterine tone obtained. 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
[2024-11-01] MEDS: Oxytocin 15 Units/NS 250ml 15 UNITS/250 ML IV.SOLN 83 UNITS IV (15:07)
[2024-11-01] MEDS: 0.9% Saline Lock 10 ML Syringe IV (17:48)
[2024-11-02 00:06] VITALS: BP 119/68; PULSE 94; PULSE 98; RESP 16; TEMP 36.3; O2SAT 96; O2SAT 97
[2024-11-02 00:07] VITALS: BP 119/68; PULSE 99
[2024-11-02 03:27] VITALS: BP 123/68; PULSE 100; RESP 16; TEMP 36.3; O2SAT 97
[2024-11-02 08:07] VITALS: BP 123/58; PULSE 94
[2024-11-02 08:08] VITALS: BP 123/58; PULSE 94; RESP 18; TEMP 36.3
--- NOTE | 2024-11-02 08:38 | PCM.PROGNOTE ---
Subjective Subjective patient seen at bedside, doing well. Patient reports good pain control. lochia mild. bottle feeding Objective Data Objective Data Vital Signs: Vital Signs Temp Pulse Resp BP Pulse Ox O2 Del Method 97.3 F L 94 18 123/58 H 97 Room Air 11/02/24 08:08 11/02/24 08:08 11/02/24 08:08 11/02/24 08:08 11/02/24 03:27 11/02/24 08:08 Oxygen Delivery Method Room Air Weight: 71.384 kg Body Mass Index (BMI) 27.0 Intake & Output: Intake and Output for Last 24 Hours 10/31/24 11/01/24 11/02/24 23:59 23:59 23:59 Intake Total 2241.66 / 2241.66 Output Total 2150 / 2150 400 / 400 Balance 91.66 / 91.66 -400 / -400 Lab / Micro Data 11/01/24 07:45 Labs: Laboratory Results - last 24 hr 11/01/24 07:45: Syphilis Total Ab Nonreactive, Blood Type O POSITIVE, Antibody Screen NEGATIVE Physical Exam Narrative Abd: fundus firm. Const alert and oriented x3 General Appearance: cooperative HEENT normocephalic Neck General: normal visual inspection GI soft to palpation and non-distended GI Narrative: Fundus firm Extremity normal to inspection and no calf tenderness Skin no rashes or lesions noted Neuro oriented x3 and CN's II-XII intact bilaterally Psych mental status grossly normal Assessment & Plan Assessment/Plan (1) Vaginal delivery: PLAN: Plan PPD# 1 , Doing well Routine care pain mgmt ambulation dc home time spent with patient on day of discharge face to face <30min
--- NOTE | 2024-11-02 08:41 | DCINST_ITS ---
Discharge Instructions DC O2, CPAP, BIPAP needs Home O2 Discharge instructions: No Dressing / Incision May resume sexual activity in: 6-8 weeks Dressing / Incision Call your doctor if you observe: Fever of 101 or Higher, Inability to urinate, Using more than 1 pad per hour and Uncontrolled pain Follow Up Care Please Follow Up With: Edin Swann MD When: 1 week post and again at 6 weeks post . [phone]: if you had PREECLAMPSIA or other Blood pressure concerns in labor you should be seen in 48-72 hours in the office. Test Results: Test results from this visit will be discussed in further detail at your follow- up appointment, if applicable. Discharge Plan Admission Admit Date/Time: 11/01/24 07:15 Attending Provider: Edin Swann Primary Care Provider: Care Physician,Rosetta Primary Discharge Orders/Prescriptions Prescriptions: No Action Vitamin 1 EACH tablet 1 ea PO DAILY aspirin [Karly Chewable Aspirin] 81 mg tablet,chewable 1 tab PO DAILY Referrals / Follow Up: Care Physician,Rosetta Primary [Primary Care Provider] -
[2024-11-02 14:58] VITALS: BP 123/64; PULSE 105; RESP 16; TEMP 36.6
== END 2024-11-02 16:15 | disposition home or self-care (01) | DRG 560 ==
PROVIDERS: Admitting Provider Obstetrics & Gynecology; Referring Provider Obstetrics & Gynecology; Visit Provider Obstetrics & Gynecology
DX: O70.0 First degree perineal laceration during delivery (principal); Z37.0 Single live birth; Z3A.39 39 weeks gestation of pregnancy; Z79.82 Long term (current) use of aspirin
CPT/HCPCS: 59025; 59050; 85025; 86780; 86850; 86900; 86901; 99221; A4216; G0378